=== PATIENT | male | born 1955 | race Caucasian/White ===

== ENCOUNTER 2020-11-04 12:40 | Outpatient (REF) | payer MEDICARE, SELFPAY ==
--- NOTE | ~2020-11-04 | US_ITS ---
EXAMINATION: US EXTRACRANIAL CAROTID DUPLEX, BILATERAL CLINICAL INFORMATION: Carotid artery stenosis follow-up. History of right endarterectomy. COMPARISON: 10/15/2019. TECHNIQUE: Real-time ultrasound and Doppler techniques (integrating B-mode 2-D vascular images, Doppler spectral analysis and color-flow Doppler imaging) were utilized to interrogate the extracranial carotid arteries, the vertebral arteries and proximal subclavian arteries bilaterally. The degree of stenosis is determined by criteria similar to NASCET. FINDINGS: Right Side: 1. There is mild atherosclerotic plaque seen in the bifurcation/proximal ICA region. 2. The common carotid artery PSV proximally is 108 cm/s and distally 99 cm/s. 3. The proximal internal carotid artery velocities are 108 cm/s systolic and 19 cm/s diastolic. 4. The proximal external carotid artery PSV is 272 cm/s. 5. The vertebral artery shows antegrade flow. 6. The subclavian artery waveforms are normal. Left Side: 1. There is moderate atherosclerotic plaque seen in the bifurcation/proximal ICA region. 2. The common carotid artery PSV proximally is 146 cm/s and distally 100 cm/s. 3. The proximal internal carotid artery velocities are 130 cm/s systolic and 29 cm/s diastolic. 4. The proximal external carotid artery PSV is 213 cm/s. 5. The vertebral artery shows antegrade flow. 6. The subclavian artery waveforms are normal. US/US carotid duplex BI IMPRESSION: 1. RIGHT: Minimal, non-hemodynamically significant stenosis of the proximal right internal carotid artery corresponding to a 0-49% stenosis by velocity criteria. 2. LEFT: Moderate, hemodynamically significant stenosis of the proximal left internal carotid artery corresponding to a 50-79% stenosis by velocity criteria. 3. There is no change in the category severity of disease when compared to the previous study dated 10/15/2019.
== END 2020-11-04 12:41 | disposition home or self-care (01) ==
LOC: HO.US 12:40
PROVIDERS: Visit Provider Surgery Vascular Surgery
DX: I65.21 Occlusion and stenosis of right carotid artery (principal)
CPT/HCPCS: 93880

== ENCOUNTER → 2020-11-18 09:50 | Outpatient (BNVA) | payer MEDICARE, SELFPAY | PROVIDERS: PCP Family Medicine; Visit Provider Surgery Vascular Surgery | DX: I83.11 Varicose veins of right lower extremity with inflammation (principal); I65.23 Occlusion and stenosis of bilateral carotid arteries | CPT/HCPCS: 99212 ==

== ENCOUNTER 2020-12-01 12:42 | Outpatient (REF) | payer MEDICARE, SELFPAY ==
--- NOTE | ~2020-12-01 | US_ITS ---
EXAMINATION: RIGHT and LEFT LOWER EXTREMITY VENOUS ULTRASOUND (Reflux Exam) CLINICAL INDICATION: leg pain and varicose veins. COMPARISON: None. TECHNIQUE: Color flow triplex imaging and compression Doppler was performed to evaluate both the deep and the superficial systems bilaterally. To evaluate the superficial system, the examination was performed in the upright position. Color-flow Doppler ultrasound and compression ultrasound were utilized. In addition, maneuvers were utilized to demonstrate reflux. FINDINGS: 1. DEEP VENOUS ULTRASOUND OF THE RIGHT LOWER EXTREMITY: Respiratory variation, normal compression and augmented flow are noted in the right common femoral vein as well as the right popliteal vein and there is no evidence of deep venous thrombosis at these locations. There is no evidence of reflux in the deep system in either the common femoral vein or the popliteal vein. There is no evidence of a Quiroz's cyst. 2. SUPERFICIAL ULTRASOUND WITH DOPPLER OF RIGHT LOWER EXTREMITY: The right great saphenous vein at the saphenofemoral junction measures 6 mm, at the mid thigh 3 mm, tefcn-msd-uimm 3 mm, jajbz-xxg-qagr 2 mm, at mid calf 2 mm and at the ankle measures 2 mm. There is right greater saphenous vein reflux measuring 2.2 seconds in the mid thigh, 2.5 seconds above the knee and 1.4 seconds at the knee. The right small saphenous vein measures 2 mm and shows no reflux. There is a 2 mm ordnance engineer in the proximal calf that demonstrates 2.4 seconds reflux. There is a varicosity in the proximal thigh that measures 3 mm and demonstrates 2.1 seconds reflux. 3. DEEP VENOUS ULTRASOUND OF THE LEFT LOWER EXTREMITY: Respiratory variation, normal compression and augmented flow are noted in the left common femoral vein as well as the left popliteal vein and there is no evidence of deep venous thrombosis at these locations. There is left popliteal deep venous reflux measuring 1.8 seconds. There is no evidence of reflux in the deep system in either the common femoral vein or the mid femoral vein. . There is no evidence of a Quiroz's cyst. 4. SUPERFICIAL ULTRASOUND WITH DOPPLER OF LEFT LOWER EXTREMITY: Left great saphenous vein at the saphenofemoral junction measures 6 mm, at the mid thigh to mm, mdotm-rlp-ryzd 2 mm, wnydm-hgm-sgez 2 mm, at mid calf 1 mm and at the ankle measures 2 mm. There is left greater saphenous vein reflux measuring 1.1 seconds in the mid thigh, 1.7 seconds above knee and 2 seconds at the knee. The left small saphenous vein measures 2 mm and shows no reflux. There is a ordnance engineer in the mid calf that measures 4 mm and does not demonstrate reflux. US/US venous duplex LE BI IMPRESSION: 1. No evidence of DVT. 1.8 second left popliteal vein reflux. 2. Bilateral greater saphenous vein reflux.
== END 2020-12-01 12:43 | disposition home or self-care (01) ==
LOC: HO.US 12:42
PROVIDERS: Visit Provider Surgery Vascular Surgery
DX: I83.893 Varicose veins of bilateral lower extremities with other complications (principal); I83.11 Varicose veins of right lower extremity with inflammation
CPT/HCPCS: 93970

== ENCOUNTER → 2020-12-09 13:05 | Outpatient (BNVA) | payer MEDICARE, SELFPAY | PROVIDERS: PCP Family Medicine; Visit Provider Surgery Vascular Surgery | DX: I83.11 Varicose veins of right lower extremity with inflammation (principal); J30.2 Other seasonal allergic rhinitis; Z87.891 Personal history of nicotine dependence; Z98.890 Other specified postprocedural states | CPT/HCPCS: 99212 ==

== ENCOUNTER → 2021-01-21 10:18 | Outpatient (BNVA) | payer MEDICARE, SELFPAY | PROVIDERS: PCP Family Medicine; Visit Provider Surgery Vascular Surgery | DX: I83.11 Varicose veins of right lower extremity with inflammation (principal) | CPT/HCPCS: 36475 ==

== ENCOUNTER 2021-01-24 13:41 | Outpatient (REF) | payer MEDICARE, SELFPAY ==
--- NOTE | ~2021-01-24 | US_ITS ---
EXAMINATION: US VENOUS ULTRASOUND WITH DOPPLER LOWER EXTREMITY, RIGHT CLINICAL INFORMATION: This is a 66-year-old male who status post right radiofrequency ablation. COMPARISON: Comparison is made to the previous study dated 12/01/2020 when the great saphenous vein was patent. TECHNIQUE: Ultrasound of the deep veins is performed from the hip to the calf with compression sonography and color and pulse Doppler assessment. Spectral analysis with color-flow imaging is performed. FINDINGS: There is normal venous compression and respiratory variation and augmented flow. The visualized common femoral vein, superficial femoral vein, profunda femoral vein, popliteal vein, and the trifurcation region shows no evidence of deep venous thrombosis. There is no significant popliteal fossa cyst. There is thrombus in the great saphenous vein 2.9 cm from the saphenofemoral junction. The great saphenous vein measures 0.5 cm. The great saphenous vein appears occluded. If the patient's symptoms persist, followup ultrasound in 5 days 7 days might be of value to exclude proximal propagation from a non-visualized calf vein. US/US venous duplex LE RT IMPRESSION: No DVT demonstrated in the right lower extremity.
== END 2021-01-24 13:42 | disposition home or self-care (01) ==
LOC: HO.HMGCX 13:41
PROVIDERS: PCP Family Medicine; Visit Provider Surgery Vascular Surgery
DX: M79.604 Pain in right leg (principal)
CPT/HCPCS: 93971

== ENCOUNTER → 2021-02-03 11:43 | Outpatient (BNVA) | payer MEDICARE, SELFPAY | PROVIDERS: PCP Family Medicine; Visit Provider Surgery Vascular Surgery | DX: I83.11 Varicose veins of right lower extremity with inflammation (principal); I65.23 Occlusion and stenosis of bilateral carotid arteries | CPT/HCPCS: 99212 ==

== ENCOUNTER 2022-02-21 12:35 | Outpatient (REF) | payer MEDICARE, SELFPAY ==
--- NOTE | ~2022-02-21 | US_ITS ---
EXAMINATION: US EXTRACRANIAL CAROTID DUPLEX, BILATERAL CLINICAL INFORMATION: Carotid stenosis. History of prior right carotid endarterectomy COMPARISON: 11/04/2020 TECHNIQUE: Real-time ultrasound and Doppler techniques (integrating B-mode 2-D vascular images, Doppler spectral analysis and color-flow Doppler imaging) were utilized to interrogate the extracranial carotid arteries, the vertebral arteries and proximal subclavian arteries bilaterally. The degree of stenosis is determined by criteria similar to NASCET. FINDINGS: Right Side: 1. Postsurgical changes in the right carotid bulb and internal carotid artery consistent with prior endarterectomy. There is minimal atherosclerotic plaque seen in the bifurcation/proximal ICA region. 2. The common carotid artery PSV proximally is 124 cm/s and distally 123 cm/s. 3. The proximal internal carotid artery velocities are 83 cm/s systolic and 18 cm/s diastolic. 4. The proximal external carotid artery PSV is 252 cm/s. 5. The vertebral artery shows antegrade flow. 6. The subclavian artery waveforms are normal. Left Side: 1. There is mild to moderate atherosclerotic plaque seen in the bifurcation/proximal ICA region. 2. The common carotid artery PSV proximally is 169 cm/s and distally 106 cm/s. 3. The proximal internal carotid artery velocities are 142 cm/s systolic and 28 cm/s diastolic. 4. The proximal external carotid artery PSV is 259 cm/s. 5. The vertebral artery shows antegrade flow. 6. The subclavian artery waveforms are normal. US/US carotid duplex BI IMPRESSION: 1. RIGHT: Status post prior carotid endarterectomy with minimal plaque formation. Minimal, non-hemodynamically significant stenosis of the proximal right internal carotid artery corresponding to a 0-49% stenosis by velocity criteria. 2. LEFT: Moderate, hemodynamically significant stenosis of the proximal left internal carotid artery corresponding to a 50-79% stenosis by velocity criteria. 3. There is no change in the category severity of disease when compared to the previous study dated 11/04/2020.
== END 2022-02-21 12:36 | disposition home or self-care (01) ==
LOC: HO.US 12:35
PROVIDERS: PCP Family Medicine; Visit Provider Surgery Vascular Surgery
DX: I65.23 Occlusion and stenosis of bilateral carotid arteries (principal)
CPT/HCPCS: 93880

== ENCOUNTER → 2022-02-28 13:02 | Outpatient (BNVA) | payer MEDICARE, SELFPAY | PROVIDERS: PCP Family Medicine; Visit Provider Surgery Vascular Surgery | DX: Z13.6 Encounter for screening for cardiovascular disorders (principal); I65.23 Occlusion and stenosis of bilateral carotid arteries; I83.11 Varicose veins of right lower extremity with inflammation; K42.9 Umbilical hernia without obstruction or gangrene | CPT/HCPCS: 99212 ==

== ENCOUNTER → 2022-03-22 12:31 | Outpatient (BNVA) | payer MEDICARE, SELFPAY | PROVIDERS: PCP Family Medicine; Visit Provider Surgery | DX: K42.9 Umbilical hernia without obstruction or gangrene (principal); I65.23 Occlusion and stenosis of bilateral carotid arteries; M62.08 Separation of muscle (nontraumatic), other site | CPT/HCPCS: 99202 ==

== ENCOUNTER → 2022-05-01 10:51 | Outpatient (BNVA) | payer MEDICARE, SELFPAY | PROVIDERS: PCP Family Medicine; Referring Provider Family Medicine; Visit Provider Internal Medicine Cardiovascular Disease | DX: I25.10 Atherosclerotic heart disease of native coronary artery without angina pectoris (principal); R07.9 Chest pain, unspecified | CPT/HCPCS: 93005; 99202 ==

== ENCOUNTER → 2022-05-17 08:43 | Outpatient (REF) | payer MEDICARE, SELFPAY ==
--- NOTE | 2022-05-17 08:46 | CA_ITS ---
Acquisition Time: 2022-05-17 09:24:34 Total Exercise Time: 00:02:00 Test Indications: CP Medications: SEE H Protocol: LEXISCAN Max HR: 101 BPM 66% of Pred: 151 BPM Max BP: 122/054 mmHG Max Work Load: 1.0 METS Pharmacological stress test with Lexiscan injection, while sitting and kicking his legs, with mild sob, no chest discomfort, with isolated PVC, with normotensive response to injection, with nondiagnostic EKG for ischemia. In recovery he was treated with Aminophylline 75mg IVP to reverse Lexiscan with improvement in breathing. Nuclear images pending. Test reviewed with Dr Gerardo. Referred By: Dejan Gerardo Overread By: HAMLET TRAYLOR
== END ==
LOC: HO.CARD 08:43
PROVIDERS: Visit Provider Internal Medicine Cardiovascular Disease
DX: R07.9 Chest pain, unspecified (principal)
CPT/HCPCS: 78452; 93017; A9500; J0280; J2785

== ENCOUNTER 2022-06-12 12:37 | Outpatient (REF) | payer MEDICARE, SELFPAY ==
[2022-06-12 12:46] LABS: MANUAL DIFF FLAG NO
[2022-06-12 14:04] LABS: Basophils Absolute Auto 0.1 X10*3/uL (0.0-0.2); Eosinophils Absolute Auto 0.3 X10*3/uL (0.0-0.4); Eosinophils Percent Auto 2.9 % (0-4); Hematocrit 43.8 % (42.0-52.0); Hemoglobin 14.3 g/dl (14.0-18.0); Imm Gran Abs Auto 0.06 X10*3/uL (0.00-0.03); Imm Gran Pct Auto 0.6 % (0.0-0.4); Lymphocytes Absolute Auto 1.7 X10*3/uL (1.2-4.9); Mean Corpuscular HGB Conc 32.6 g/dl (31.0-36.0); Mean Corpuscular Hemoglobin 29.6 pg (27.0-33.0); Mean Corpuscular Volume 90.7 fL (80.0-98.0); Mean Platelet Volume 9.7 fL (9.4-12.4); Monocytes Absolute Auto 1.1 X10*3/uL (0.1-1.2); Monocytes Percent Auto 10.6 % (2-11); Neutrophils Absolute Auto 6.8 x10*3/uL (2.0-8.3); Neutrophils Percent Auto 67.9 % (45-73); Platelet Count 407 X10*3/uL (160-400); Red Blood Count 4.83 X10*6/uL (4.60-5.80); Red Cell Distribution Width 12.7 % (11.0-16.0)
[2022-06-12 14:17] LABS: INTERNATIONAL NORM RATIO 0.9 (0.9-1.1); Prothrombin Time 10.5 SEC (10.0-13.1)
[2022-06-12 14:49] LABS: Anion Gap 18 (12-20); Blood Urea Nitrogen 17 mg/dL (9-16); Calcium 9.9 mg/dL (8.4-10.2); Carbon Dioxide 28 mmol/L (22-29); Chloride 95 mmol/L (96-108); Estimated Glomerular Filt Rate > 60; Glucose Random 189 mg/dL (60-115); Potassium 4.6 mmol/L (3.3-5.1); Sodium 136 mmol/L (135-145)
== END 2022-06-12 12:38 | disposition home or self-care (01) ==
LOC: HO.LAB 12:37
PROVIDERS: PCP Family Medicine; Visit Provider Internal Medicine Cardiovascular Disease
DX: R07.9 Chest pain, unspecified (principal); I25.10 Atherosclerotic heart disease of native coronary artery without angina pectoris
CPT/HCPCS: 36415; 80048; 85025; 85610

== ENCOUNTER → 2022-07-03 12:37 | Outpatient (BNVA) | payer MEDICARE, SELFPAY | PROVIDERS: PCP Family Medicine; Referring Provider Family Medicine; Visit Provider Internal Medicine Cardiovascular Disease | DX: I25.118 Atherosclerotic heart disease of native coronary artery with other forms of angina pectoris (principal) | CPT/HCPCS: 99212 ==

== ENCOUNTER 2022-12-07 09:34 | Outpatient (AMB) | payer MEDICARE, SELFPAY ==
--- NOTE | 2022-12-07 09:39 | MHC.OFFVIS ---
Intake Intake Visit Reasons: follow up add-on s/p Art US @[facility] Intake Note: Patient is here for a follow up add on s/p arterial US @[facility], patient has hx of Right CEA 02/04/18 + VV. c/o LE pain. left leg cramping and unable to walk far, symptoms started a few year ago. Allergies aspirin [From Percodan] Adverse Reaction (Intermediate, Verified 12/07/22 09:47) hyperglycemia oxycodone [From Percodan] Adverse Reaction (Intermediate, Verified 12/07/22 09:47) hyperglycemia Seasonal Allergy (Unknown, Uncoded 07/03/22 12:56) Sneezing HPI follow up add-on s/p Art US @[facility] HPI Details 67-year-old gentleman well known to me for prior history of carotid endarterectomy back in 2018 had seen his primary care and was complaining left leg claudication. He reports that he has difficulty ambulating more than a block. It has been progressing over the last several months. He now presents for vascular follow-up with noninvasive testing performed at an outside institution. [facility] Medical History Carotid stenosis Diabetes Surgical History History of cardiac cath History of CEA (carotid endarterectomy) Family History Father No problems noted. Mother No problems noted. Daughter No problems noted. Son No problems noted. Social History Alcohol intake: former Year quit: 1998 Patient Tobacco Use Status: Former Tobacco user Quit Date: 1998 Tobacco use type: Cigarette Years Smoked: 35 +/- Review of Systems Const All systems reviewed & are unremarkable except as noted in HPI and below Reports no additional complaints ENT Reports Normal hearing present Card Denies chest pain, Denies chest pain at rest, Denies chest pain with activity and Denies pedal edema Resp Denies cough GI Denies abdominal pain Musc Denies abnormal gait, Denies muscle cramps and Denies radiating pain into limb Skin/Breast Denies skin ulcer and Denies wounds Neuro Reports Normal hearing present and Denies abnormal gait Psych Reports no additional complaints Physical Exam Const General: cooperative, healthy appearing and comfortable Orientation/consciousness: oriented to person, oriented to place and oriented to time HEENT Head: Yes normal to inspection Neck Neck: Yes normal visual inspection Carotids: no bruits Chest Chest palpation & inspection: normal inspection of the chest Resp Effort & Inspection: normal respiratory effort and able to speak in complete sentences Auscultation: clear to auscultation bilaterally, no crackles, no rales, no rhonchi and no wheezes Cardio Other: Bilateral DP signals Rate: regular rate Rhythm: regular rhythm Heart sounds: S1 normal heart sound present and S2 normal heart sound present Bruits: no carotid bruits GI Inspection: Yes normal to inspection Skin Wounds: no wounds Hair: normal Neuro General: oriented to person, oriented to place and oriented to time Cranial nerves: Yes CN's II-XII intact bilaterally and Yes Normal hearing present Cognition (Neuro): normal cognition Motor exam (neuro): 5/5 motor strength present throughout Extrem Other: venous exam: No significant superficial varicosities or spider telangiectasias, minimal edema General: No clubbing, No cyanosis and No edema Psych Appearance: grossly normal Mental Status: mental status grossly normal Speech and movement: Normal speech and movement present Results Reviewed Results Reviewed: Noninvasive testing dated 06/19/2022 demonstrates AMELIA on the right of 9.9 and on the left of 0.48. They report a decrease in waveforms but I am not able to visualize the waveforms. They are suggesting and arterial ultrasound which was not done. Written report was reviewed only. Assessment & Plan Assessment & Plan (1) PAD (peripheral artery disease): Code(s): I73.9 - Peripheral vascular disease, unspecified Plan: Patient notes leg pain when walking distances. I have discussed the pathophysiology of peripheral vascular disease with the patient. I have also discussed risk factor modification. I have reviewed the patient's arterial testing which reveals left AMELIA of 0.48. the patient would benefit from a left leg endovascular peripheral angiogram with possible angioplasty, stent, and/or atherectomy. This has been discussed in detail with the patient along with risks, benefits, and complications. This includes but is not limited to bleeding, infection, heart attack, need for emergent surgical repair, limb ischemia, blood vessel damage, bleeding, puncture, kidney injury, bruising, allergic reaction, and skin reaction. The patient demonstrates a clear understanding. We will schedule for the next appropriate time. Thank you for allowing us to assist in this patient's care. (2) Varicose veins of right lower extremity with inflammation: Comment: 01/21/2021 - right great saphenous vein Radiofrequency ablation Code(s): I83.11 - Varicose veins of right lower extremity with inflammation Plan: At the current time his venous disease appears to be stable. Will address arterial status 1st. (3) Bilateral carotid artery stenosis: Comment: 02/04/2018- right carotid endarterectomy Code(s): I65.23 - Occlusion and stenosis of bilateral carotid arteries Plan: Carotid status is stable. He is scheduled for annual surveillance of his carotids in January. Thank you for allowing us to assist in his care. Coding Level of Care Code Est Pt Level 4 (42078) Diagnoses PAD (peripheral artery disease) I73.9 Varicose veins of right lower extremity with inflammation I83.11 Bilateral carotid artery stenosis I65.23
== END 2022-12-07 10:01 | disposition home or self-care (01) ==
LOC: HO.HVS 09:34
PROVIDERS: PCP Family Medicine; Visit Provider Surgery Vascular Surgery
DX: I73.9 Peripheral vascular disease, unspecified (principal); I83.11 Varicose veins of right lower extremity with inflammation; I65.23 Occlusion and stenosis of bilateral carotid arteries
CPT/HCPCS: 99214

== ENCOUNTER → 2022-12-07 09:34 | Outpatient (BNVA) | payer MEDICARE, SELFPAY | PROVIDERS: PCP Family Medicine; Visit Provider Surgery Vascular Surgery | DX: I73.9 Peripheral vascular disease, unspecified (principal); I65.23 Occlusion and stenosis of bilateral carotid arteries; I83.11 Varicose veins of right lower extremity with inflammation | CPT/HCPCS: 99212 ==

== ENCOUNTER 2022-12-27 06:04 | Day surgery (SDC) | payer MEDICARE, SELFPAY ==
[2022-12-27] VITALS (7 sets, daily range): BP systolic 105–136; BP diastolic 8–65; PULSE 66–86; RESP 13–20; TEMP 37.2; O2SAT 94–96; BMI 28.1
[2022-12-27 06:40] LABS: Basophils Absolute Auto 0.1 X10*3/uL (0.0-0.2); Basophils Percent Auto 0.9 % (0-2); Eosinophils Absolute Auto 0.4 X10*3/uL (0.0-0.4); Eosinophils Percent Auto 2.5 % (0-4); Hemoglobin 15.4 g/dl (14.0-18.0); Imm Gran Pct Auto 0.6 % (0.0-0.4); Lymphocytes Absolute Auto 2.7 X10*3/uL (1.2-4.9); Lymphocytes Percent Auto 16.3 % (20-40); MANUAL DIFF FLAG SCAN; Mean Corpuscular HGB Conc 33.5 g/dl (31.0-36.0); Mean Corpuscular Hemoglobin 30.5 pg (27.0-33.0); Mean Corpuscular Volume 91.1 fL (80.0-98.0); Mean Platelet Volume 9.4 fL (9.4-12.4); Monocytes Absolute Auto 1.7 X10*3/uL (0.1-1.2); Monocytes Percent Auto 10.2 % (2-11); Neutrophils Absolute Auto 11.3 x10*3/uL (2.0-8.3); Neutrophils Percent Auto 69.5 % (45-73); Platelet Count 436 X10*3/uL (160-400); Red Blood Count 5.05 X10*6/uL (4.60-5.80); Red Cell Distribution Width 13.2 % (11.0-16.0); SCAN SMEAR FLAG 1; White Blood Count 16.3 X10*3/uL (4.8-10.8)
[2022-12-27 06:45] LABS: Blood Urea Nitrogen 24 mg/dL (9-16); Creatinine Clr Calc Pharmacy 63.7; Estimated Glomerular Filt Rate > 60
[2022-12-27 07:07] LABS: Glucose, Whole Blood 138 mg/dL (60-115)
[2022-12-27 08:24] LABS: SLIDE REVIEW VERIFIED
--- NOTE | 2022-12-27 09:03 | W.PM.OPN ---
Operative Note Operative Note Date of Service: 12/27/22 Narrative: Angiogram report from [facility] Preoperative diagnosis: Atherosclerosis of Left lower extremity with activity limiting claudication Postoperative diagnosis: Same Procedure: 1. Ultrasound-guided right common femoral access 2. Aortogram with left lower extremity runoff 3. left common iliac and external iliac plasty and stent Surgeon:Ubaldo Lassiter M.D., FACS, RPVI Charging Plug Placer:None Anesthesia: Local with moderate conscious sedation. Total intraservice moderate sedation time was 45 minutes. I monitored the patient's level of consciousness and physiologic status continuously throughout the procedure. Specimens:none Drains:none Estimated blood loss: Less than 10 ml Implant: [place] VBX 7 x 19; Medtronic visi Pro 7 x 17 Indications: very pleasant 67-year-old gentleman presents for endovascular intervention. He had undergone noninvasive testing which demonstrated an AMELIA of 0.49. He did demonstrate activity limiting claudication. He now presents for intervention. The patient has signed the informed consent after reviewing risks, complications, benefits, and alternatives previously discussed with the patient. The patient was given the opportunity to ask any additional questions or voice any concerns. All questions were answered to the patient's satisfaction. Procedure in detail: Patient was brought to the angiography suite prior to which a time-out was called for patient identification and site verification. Bilateral groins were prepped and draped in the standard surgical fashion. Under ultrasound guidance Right common femoral was punctured with micro puncture needle and wire. Subsequently a precision 4 Panamanian sheath was then placed. Bentson wire was advanced to the level of the aorta. 4 [place] Flush catheter was brought up and parked at the level of the renal arteries. Aortogram was then undertaken. Catheter was brought down to the level of the iliac bifurcation. Iliacs were subsequently imaged. Catheter was then brought in up and over to the left side SFA. Runoff study was then undertaken. it was recognized that he did have significant iliac disease. We were able to traverse this lesion with a Glidewire Advantage. At this time we administered 5000 units of systemic heparin. After 5 minutes of circulation time up and over 6 [place]amanian sheath was then placed. We did multiple orthogonal views of the iliacs. We subsequently plasty this area with a 6 x 30 balloon. Multiple insufflations of this was required. We recognize there was a high-grade very calcified stenosis in the common iliac and then there was a stenosis at the junction of the takeoff of the hypogastric on the external iliac. We 1st placed a 7 x 17 visi Pro stent on the junction of the common iliac to external iliac. We then exchanged out for a 7 [place] sheath. An through this we deployed in the common iliac a [place] VBX 7 x 19 balloon expandable covered stent. Once this was accomplished excellent result was achieved. Completion angiogram was undertaken. StarClose closure device was then deployed. Patient tolerated the procedure well returned to recovery with stable vitals. Interpretation of films: 1. Ultrasound demonstrates appropriate femoral puncture. Image of which was saved. 2. Aortogram demonstrates appropriate caliber aorta. Minimal disease. Appropriate take-off of the renals. 3. Iliac images demonstrate Right side no significant disease but there was a significant calcified area of the common femoral; Left side high-grade stenosis at the common iliac high-grade stenosis at the junction of the common iliac to external iliac 4. left Leg Common femoral artery: no significant disease Profundus Femoris: No significant disease Superficial femoral artery: no significant disease Popliteal artery (p1,p2,p3): no significant disease Anterior tibial artery: patent with runoff all the way to the ankle Peroneal artery: patent but diminutive Posterior tibial artery: patent with runoff all the way to the ankle Dorsalis pedis/plantar arch: incomplete Conclusion: 1. successful plasty and stent placement left common iliac and external iliac artery 2. Anticoagulation status: will require 6 months of aspirin and Plavix This note is constructed using voice recognition software. While every effort has been made to ensure accuracy, board operator errors may have been included. Thank you for allowing me to participate in the care of your patient. Yours sincerely, Ubaldo Lassiter MD, FACS, R.P.V.I.
[2022-12-27] MEDS: Clopidogrel Bisulfate 300 MG TABLET PO (09:30)
[2022-12-27 10:19] LABS: Glucose, Whole Blood 136 mg/dL (60-115)
== END 2022-12-27 11:36 | disposition home or self-care (01) ==
PROVIDERS: PCP Family Medicine; Visit Provider Surgery Vascular Surgery
DX: E11.51 Type 2 diabetes mellitus with diabetic peripheral angiopathy without gangrene (principal); I70.213 Atherosclerosis of native arteries of extremities with intermittent claudication, bilateral legs; R26.2 Difficulty in walking, not elsewhere classified; I65.23 Occlusion and stenosis of bilateral carotid arteries; I65.29 Occlusion and stenosis of unspecified carotid artery; I83.11 Varicose veins of right lower extremity with inflammation; Z79.82 Long term (current) use of aspirin; Z79.4 Long term (current) use of insulin; Z88.8 Allergy status to other drugs, medicaments and biological substances; Z98.890 Other specified postprocedural states; Z87.891 Personal history of nicotine dependence
CPT/HCPCS: 36415; 37221; 37223; 76937; 82565; 82947; 84520; 85025; 99152; 99153; C1725; C1760; C1769; C1874; C1876; C1887; C1894; J1643; J2250; J3010; Q9967

== ENCOUNTER → 2022-12-27 06:04 | Outpatient (BNV) | payer MEDICARE, SELFPAY | PROVIDERS: PCP Family Medicine; Visit Provider Surgery Vascular Surgery | DX: I70.212 Atherosclerosis of native arteries of extremities with intermittent claudication, left leg (principal) | CPT/HCPCS: 37221; 37223; 75630; 76937; 99152 ==

== ENCOUNTER 2023-01-08 12:37 | Outpatient (AMB) | payer MEDICARE, SELFPAY ==
--- NOTE | 2023-01-08 12:50 | A.OFFVIS_ITS ---
Intake Vital Signs 01/08/23 12:51 Height 5 ft 4 in Weight 157 lb 13.616 oz BMI 27.1 BP 118/56 L Blood Pressure Location Lt brachial Position Sitting Pulse 79 Pulse Source Monitor Intake Visit Reasons: 6 mth f/up Intake Note: 6 month follow up with EKG. 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 Accompanied by: Self / Same As Patient Allergies aspirin [From Percodan] Adverse Reaction (Intermediate, Verified 01/08/23 12:53) hyperglycemia oxycodone [From Percodan] Adverse Reaction (Intermediate, Verified 01/08/23 12:53) hyperglycemia Seasonal Allergy (Unknown, Uncoded 01/08/23 12:53) Sneezing Medication List - Last Reconciled 01/08/23 by Dejan Gerardo MD albuterol sulfate 90 mcg/actuation 2 puffs inhalation Q4H PRN amlodipine 10 mg PO DAILY aspirin (Adult Aspirin Regimen) 81 mg PO DAILY atorvastatin 40 mg PO BEDTIME blood sugar diagnostic As directed chlorthalidone 50 mg PO DAILY clopidogrel (Plavix) 75 mg PO DAILY cyanocobalamin (vitamin B-12) 1,000 mcg PO DAILY dorzolamide-timolol 22.3-6.8 mg/mL 1 drp ophthalmic (eye) BID iazzjtfqfzi-oifqpzhgm-jscaaupm 200-62.5-25 mcg (Trelegy Ellipta) 1 inh inhalation DAILY insulin admin supplies (InPen (for Humalog) subcutaneous) As directed insulin glargine 16 units subcut DAILY insulin lispro 8 units subcut TID latanoprost 0.005% drps ophthalmic (eye) metformin 850 mg PO TID moexipril 15 mg PO BID pen needle, diabetic As directed sildenafil 100 mg PO DAILY PRN HPI HPI Comments History of Present Illness Details 68-year-old gentleman is presenting for follow-up. He previously had cardiac catheterization which showed 40% lad stenosis. He came for follow-up after few years and was complaining of chest discomfort. He was referred for stress testing which showed fixed inferior perfusion defect with differential of diaphragmatic attenuation versus scar. Given ongoing symptoms we decided to bring him back for diagnostic angiography. He underwent diagnostic angiogram from right femoral approach because we could not pass a wire through the right radial artery because it was already occluded. His angiogram did not show any significant change in anatomy to explain symptoms. Particular then fixed inferior defect was thought to be an artifact due to diaphragm. He is returning for follow-up today and doing well. Blood pressure control is reasonable. Denying any chest discomfort or shortness of breath. 01/08/23: He is here for follow-up. Blood pressure control is good. He underwent lower extremity PCI by Dr. Lassiter. He is on aspirin Plavix. Denying any chest discomfort or significant shortness of breath. He said he was short of breath before he started exercise recently but with progressive activities dyspnea is improved significantly. I think this was due to deconditioning. [facility] Medical History Carotid stenosis Diabetes Surgical History History of cardiac cath History of CEA (carotid endarterectomy) Family History Father No problems noted. Mother No problems noted. Daughter No problems noted. Son No problems noted. Social History Alcohol intake: former Year quit: 1998 Patient Tobacco Use Status: Former Tobacco user Quit Date: 1998 Tobacco use type: Cigarette Years Smoked: 35 +/- Review of Systems Const Denies weakness ENT Denies dizziness Card Denies chest pain, Denies chest pain with activity, Denies syncope, Denies rapid heart rate, Denies pedal edema, Denies edema, Denies leg edema, Denies lightheadedness, Denies palpitations, Denies dyspnea, Denies dyspnea on exertion and Denies orthopnea Resp Denies cough, Denies dyspnea and Denies dyspnea on exertion GI Denies hematochezia and Denies change in stool character Musc Denies abnormal gait, Denies muscle cramps, Denies muscle weakness, Denies numbness, Denies radiating pain into limb and Denies tingling Neuro Denies abnormal gait, Denies dizziness, Denies syncope, Denies numbness, Denies tingling and Denies weakness Endo Denies palpitations Physical Exam Vital Signs: Last Vital Signs Pulse 79 01/08/23 12:51 BP 118/56 L 01/08/23 12:51 BMI result Body Mass Index 27.1 GENERAL APPEARANCE: in no acute distress, pleasant. NECK: no carotid bruit, no jugular venous distention. Right carotid endarterectomy scar. SKIN: no suspicious lesions, warm and dry. HEART: no murmurs, regular rate and rhythm. LUNGS: clear to auscultation bilaterally. ABDOMEN: soft, nontender. EXTREMITIES: no edema. PERIPHERAL PULSES: equal. NEUROLOGIC: No gross deficits, AAO X 3 Office Procedures EKG Details: Sinus rhythm 79 beats per minute, normal axis, QTC 421 milliseconds [id number], Complete Assessment & Plan Assessment & Plan (1) PAD (peripheral artery disease): Code(s): I73.9 - Peripheral vascular disease, unspecified (2) Coronary artery disease: Code(s): I25.10 - Atherosclerotic heart disease of [place] coronary artery without angina pectoris Plan 68-year-old gentleman who is here for follow-up. He has history of carotid disease and had endarterectomy in the past. He also had recent lower extremity intervention and is on aspirin and Plavix. I have recommended to him to have fasting lipid panel. His target LDL is less than 70. Blood pressure control is good. He will see us back in few months. Thank you for allowing me to participate in the care of your patient. Please feel free to contact me if you have any questions. Orders: Orders Lipid Panel Today I73.9 - Peripheral vascular disease, unspecified Coding Level of Care Code Est Pt Level 4 (05683) Diagnoses PAD (peripheral artery disease) I73.9 Coronary artery disease I25.10 CPT Codes EKG - CPT: 62259-[id number], Complete ([id number])
[2023-01-08 12:51] VITALS: BP 118/56; PULSE 79; BMI 27.1
== END 2023-01-08 13:10 | disposition home or self-care (01) ==
PROVIDERS: PCP Family Medicine; Referring Provider Family Medicine; Visit Provider Internal Medicine Cardiovascular Disease
DX: I73.9 Peripheral vascular disease, unspecified (principal); I25.10 Atherosclerotic heart disease of native coronary artery without angina pectoris
CPT/HCPCS: 93010; 99214

== ENCOUNTER → 2023-01-08 12:37 | Outpatient (BNVA) | payer MEDICARE, SELFPAY | PROVIDERS: PCP Family Medicine; Referring Provider Family Medicine; Visit Provider Internal Medicine Cardiovascular Disease | DX: I73.9 Peripheral vascular disease, unspecified (principal); I25.10 Atherosclerotic heart disease of native coronary artery without angina pectoris; Z98.890 Other specified postprocedural states; Z95.5 Presence of coronary angioplasty implant and graft | CPT/HCPCS: 93005; 99212 ==

== ENCOUNTER 2023-01-11 08:46 | Outpatient (REF) | payer MEDICARE, SELFPAY ==
[2023-01-11 10:50] LABS: Cholesterol 132 mg/dL; HDL Cholesterol 54 mg/dL; LDL Cholesterol Calculated 63 mg/dl; Triglycerides 79 mg/dL
== END 2023-01-11 08:47 | disposition home or self-care (01) ==
LOC: HO.LAB 08:46
PROVIDERS: PCP Family Medicine; Visit Provider Internal Medicine Cardiovascular Disease
DX: I73.9 Peripheral vascular disease, unspecified (principal); E11.9 Type 2 diabetes mellitus without complications
CPT/HCPCS: 36415; 80061; 99212

== ENCOUNTER 2023-01-11 09:54 | Outpatient (AMB) | payer MEDICARE, SELFPAY ==
[2023-01-11 09:59] VITALS: BMI 26.9
--- NOTE | 2023-01-11 09:59 | A.OFFVIS_ITS ---
Intake Vital Signs 01/11/23 09:59 Height 5 ft 4 in Weight 157 lb BMI 26.9 Intake Visit Reasons: 2 week left angio 12/27/22 Intake Note: follow up Left LE angio 12/27/22, pt states he is feeling much better, is able to walk without having to stop and sit down. He states in the distance he can walk now he used to have to stop 4 times to sit. Accompanied by: Self / Same As Patient Allergies aspirin [From Percodan] Adverse Reaction (Intermediate, Verified 01/11/23 10:04) hyperglycemia oxycodone [From Percodan] Adverse Reaction (Intermediate, Verified 01/11/23 10:04) hyperglycemia Seasonal Allergy (Unknown, Uncoded 01/11/23 10:04) Sneezing HPI 2 week left angio 12/27/22 HPI Details Very pleasant 68-year-old gentleman status post left lower extremity endovascular intervention. He reports a significant improvement in his ambulation. He is able to walk distances with no significant difficulty. He now presents for routine postprocedure follow-up. [facility] Medical History (Updated 01/11/23 @ 10:51 by Ubaldo Lassiter MD) Carotid stenosis Diabetes Surgical History (Updated 01/11/23 @ 10:06 by TRESA Rahman) History of cardiac cath History of CEA (carotid endarterectomy) S/P angiogram of extremity (12/27/22) Family History Father No problems noted. Mother No problems noted. Daughter No problems noted. Son No problems noted. Social History Alcohol intake: former Year quit: 1998 Patient Tobacco Use Status: Former Tobacco user Quit Date: 1998 Tobacco use type: Cigarette Years Smoked: 35 +/- Review of Systems Const All systems reviewed & are unremarkable except as noted in HPI and below Reports no additional complaints ENT Reports Normal hearing present Card Denies chest pain, Denies chest pain at rest, Denies chest pain with activity and Denies pedal edema Resp Denies cough GI Denies abdominal pain Musc Denies abnormal gait, Denies muscle cramps and Denies radiating pain into limb Skin/Breast Denies skin ulcer and Denies wounds Neuro Reports Normal hearing present and Denies abnormal gait Psych Reports no additional complaints Physical Exam Vital Signs: BMI result Body Mass Index 26.9 Const General: cooperative, healthy appearing and comfortable Orientation/consciousness: oriented to person, oriented to place and oriented to time HEENT Head: Yes normal to inspection Neck Neck: Yes normal visual inspection Carotids: no bruits Chest Chest palpation & inspection: normal inspection of the chest Resp Effort & Inspection: normal respiratory effort and able to speak in complete sentences Auscultation: clear to auscultation bilaterally, no crackles, no rales, no rhonchi and no wheezes Cardio Other: Bilateral DP signals Rate: regular rate Rhythm: regular rhythm Heart sounds: S1 normal heart sound present and S2 normal heart sound present Bruits: no carotid bruits GI Inspection: Yes normal to inspection Skin Wounds: no wounds Hair: normal Neuro General: oriented to person, oriented to place and oriented to time Cranial nerves: Yes CN's II-XII intact bilaterally and Yes Normal hearing present Cognition (Neuro): normal cognition Motor exam (neuro): 5/5 motor strength present throughout Extrem Other: venous exam: No significant superficial varicosities or spider telangiectasias, minimal edema General: No clubbing, No cyanosis and No edema Psych Appearance: grossly normal Mental Status: mental status grossly normal Speech and movement: Normal speech and movement present Assessment & Plan Assessment & Plan (1) PAD (peripheral artery disease): Comment: 12/27/2022 - left common iliac and external iliac stent Code(s): I73.9 - Peripheral vascular disease, unspecified Plan: In short patient is stable from a peripheral vascular standpoint. He will require routine surveillance follow-up. In addition he will be on aspirin and Plavix for 6 months duration. He will be scheduled for ultrasound in 3 months time. Thank you for allowing us to assist in his care. If there are any questions or concerns please do not hesitate to contact us. Orders: Orders US arterial duplex LE BI 3 Months I73.9 - Peripheral vascular disease, unspecified Coding Level of Care Code Est Pt Level 3 (47525) Diagnoses PAD (peripheral artery disease) I73.9
== END 2023-01-11 10:16 | disposition home or self-care (01) ==
PROVIDERS: PCP Family Medicine; Visit Provider Surgery Vascular Surgery
DX: I73.9 Peripheral vascular disease, unspecified (principal)
CPT/HCPCS: 99213

== ENCOUNTER 2023-02-14 09:46 | Outpatient (REF) | payer MEDICARE, SELFPAY ==
--- NOTE | ~2023-02-14 | US_ITS ---
EXAMINATION: US RETROPERITONEAL LIMITED (AORTA) CLINICAL INFORMATION: Encounter for screening for cardiovascular disorders. Smoker. COMPARISON: None available. TECHNIQUE: Cordero-scale, color Doppler and spectral Doppler evaluation of the abdominal aorta. FINDINGS: The measurements of the aorta in maximum AP and transverse dimensions respectively are as follows: Proximal: 2.0 x 2.3 cm. Mid: 1.4 x 2.1 cm. Distal: 1.9 x 2.5 cm. PSV: 117 cm/s. The measurements of the common iliac arteries in maximum AP and TRV dimensions are as follows: Right Common Iliac Artery: 0.9 cm. Left Common Iliac Artery: 0.9 cm. US/US aorta IMPRESSION: Negative for abdominal aortic aneurysm.
--- NOTE | ~2023-02-14 | US_ITS ---
EXAMINATION: US EXTRACRANIAL CAROTID DUPLEX, BILATERAL CLINICAL INFORMATION: Carotid stenosis. History of right CEA 5 years ago. COMPARISON: Carotid ultrasound 02/21/2022. TECHNIQUE: Real-time ultrasound and Doppler techniques (integrating B-mode 2-D vascular images, Doppler spectral analysis and color-flow Doppler imaging) were utilized to interrogate the extracranial carotid arteries, the vertebral arteries and proximal subclavian arteries bilaterally. The degree of stenosis is determined by criteria similar to NASCET. FINDINGS: Right Side: 1. Right carotid endarterectomy with minimal plaque plaque seen in the bifurcation/proximal ICA region. 2. The common carotid artery PSV proximally is 134 cm/s and distally 106 cm/s. 3. The proximal internal carotid artery velocities are 119 cm/s systolic and 26 cm/s diastolic. 4. The proximal external carotid artery PSV is 225 cm/s. 5. The vertebral artery shows antegrade flow. 6. The subclavian artery waveforms are biphasic. Left Side: 1. There is mild atherosclerotic plaque seen in the bifurcation/proximal ICA region. 2. The common carotid artery PSV proximally is 146 cm/s and distally 118 cm/s. 3. The proximal internal carotid artery velocities are 129 cm/s systolic and 27 cm/s diastolic. 4. The proximal external carotid artery PSV is 234 cm/s. 5. The vertebral artery shows antegrade flow. 6. The subclavian artery waveforms are biphasic. US/US carotid duplex BI IMPRESSION: 1. RIGHT: Right carotid endarterectomy with minimal plaque. Minimal, non-hemodynamically significant stenosis of the proximal right internal carotid artery corresponding to a 0-49% stenosis by velocity criteria. 2. LEFT: Moderate, hemodynamically significant stenosis of the proximal left internal carotid artery corresponding to a 50-79% stenosis by velocity criteria. 3. There is no change in the category severity of disease when compared to the previous study dated 02/21/2022.
== END 2023-02-14 09:47 | disposition home or self-care (01) ==
LOC: HO.US 09:46
PROVIDERS: PCP Family Medicine; Visit Provider Surgery Vascular Surgery
DX: Z13.6 Encounter for screening for cardiovascular disorders (principal); I65.23 Occlusion and stenosis of bilateral carotid arteries
CPT/HCPCS: 76775; 93880

== ENCOUNTER 2023-04-16 12:37 | Outpatient (REF) | payer MEDICARE, SELFPAY ==
--- NOTE | ~2023-04-16 | US_ITS ---
EXAMINATION: Noninvasive assessment of the bilateral lower extremities with ARTERIAL DUPLEX and ANKLE BRACHIAL INDICES (ABIs). CLINICAL INFORMATION: Peripheral vascular disease TECHNIQUE: Duplex Doppler techniques with waveform analysis and measurement of velocities in the bilateral common femoral, profunda femoris, superficial femoral, popliteal and tibial arteries were performed. Additionally, ankle pulse volume recordings, ankle pressure measurements and ankle brachial indices were obtained of the lower extremity arterial system bilaterally. The study was performed only at rest. COMPARISON: 03/19/2018 and arteriogram from 12/27/2022 FINDINGS: DIRECT DUPLEX DOPPLER FINDINGS: RIGHT LEG: Common femoral artery: 79.3 cm/s, phasicity: Biphasic. Irregular calcified plaque Profunda femoris artery: 185 cm/s, phasicity: Biphasic Superficial femoral artery (proximal): 57.9 cm/s, phasicity: Biphasic Superficial femoral artery (mid): 71.2 cm/s, phasicity: Triphasic Superficial femoral artery (distal): 81.3 cm/s, phasicity: Triphasic Popliteal artery: 84.7 cm/s, phasicity: Monophasic Posterior tibial artery: 22.1 cm/s, phasicity: Monophasic Peroneal artery: 17.5 cm/s, phasicity: Monophasic Anterior tibial artery: 24.6 cm/s, phasicity: Monophasic Dorsalis pedis artery: 22.8 cm/s, phasicity:Monophasic LEFT LEG: Common femoral artery: 150 cm/s, phasicity: Biphasic Profunda femoris artery: 81.1 cm/s, phasicity: Triphasic Superficial femoral artery (proximal): 106 cm/s, phasicity: Biphasic Superficial femoral artery (mid): Stent is patent Proximal stent: 77.9 cm/s, phasicity biphasic Mid stent: 108 cm/s, phasicity triphasic Distal stent: 112 cm/s, phasicity biphasic Superficial femoral artery (distal): 113 cm/s, phasicity: Biphasic Popliteal artery: 119 cm/s, phasicity: Biphasic Posterior tibial artery: 53.0 cm/s, phasicity: Biphasic Peroneal artery: 57.7 cm/s, phasicity: Biphasic Anterior tibial artery: 58.9 cm/s, phasicity: Biphasic Dorsalis pedis artery: 50.8 cm/s, phasicity: Biphasic ANKLE-BRACHIAL INDEX: Right: 0.63? Left: 0.71 ANKLE PRESSURES: Right: PT 78, DP 65 Left: PT?87, DP?73 ANKLE PVR WAVEFORMS: Right: Abnormal Left: Abnormal US/US arterial duplex LE BI IMPRESSION: Right leg: Moderately decreased ankle brachial index and PVR waveform. Arterial duplex ultrasound demonstrates a patent flow within the arterial vessels with monophasic waveforms seen within the popliteal artery and below-knee runoff vessels. No definite stenosis isn't visualized however is suspected. Nonvisualized stenosis in the distal superficial femoral artery/proximal popliteal artery Left leg: Mildly decreased ankle brachial index and PVR waveform. Arterial duplex demonstrates patent flow within the arterial vessels. Stent in the mid superficial femoral artery is widely patent AMELIA Reference: - >1.4 = calcified vessels - 0.9 - 1.4 = normal - no significant arterial disease - 0.7 - 0.89 = mild peripheral arterial disease - 0.51 - 0.69 = moderate peripheral arterial disease - ? 0.50 = severe peripheral arterial disease - < .30 = critical arterial disease
== END 2023-04-16 12:38 | disposition home or self-care (01) ==
LOC: HO.US 12:37
PROVIDERS: PCP Family Medicine; Visit Provider Surgery Vascular Surgery
DX: I73.9 Peripheral vascular disease, unspecified (principal)
CPT/HCPCS: 93923; 93925

== ENCOUNTER 2023-05-10 14:52 | Outpatient (AMB) | payer MEDICARE, SELFPAY ==
--- NOTE | 2023-05-10 14:55 | MHC.OFFVIS ---
Intake Intake Visit Reasons: Follow Up 04/16 Arterial US Intake Note: Pt here for fallow up Arterial US on 04/16/23 Pt states the stents are working real good and hes able to walk more then he has prior to the procedure Allergies aspirin [From Percodan] Adverse Reaction (Intermediate, Verified 05/10/23 14:58) hyperglycemia oxycodone [From Percodan] Adverse Reaction (Intermediate, Verified 05/10/23 14:58) hyperglycemia Seasonal Allergy (Unknown, Uncoded 01/11/23 10:04) Sneezing HPI Follow Up 04/16 Arterial US HPI Details Very pleasant 68-year-old gentleman presents for follow-up status post left lower extremity endovascular intervention nearly 3-4 months ago. He reports a significant improvement in his ambulation. He can walk several blocks without stopping. He is now able to actively exercise. He actually has lost some weight through diet and exercise. He now presents for routine surveillance follow-up with noninvasive arterial testing. [facility] Medical History Carotid stenosis Diabetes Surgical History S/P angiogram of extremity (12/27/22) History of cardiac cath History of CEA (carotid endarterectomy) Family History Father No problems noted. Mother No problems noted. Daughter No problems noted. Son No problems noted. Social History Alcohol intake: former Year quit: 1998 Patient Tobacco Use Status: Former Tobacco user Quit Date: 1998 Tobacco use type: Cigarette Years Smoked: 35 +/- Review of Systems Const All systems reviewed & are unremarkable except as noted in HPI and below Reports no additional complaints ENT Reports Normal hearing present Card Denies chest pain, Denies chest pain at rest, Denies chest pain with activity and Denies pedal edema Resp Denies cough GI Denies abdominal pain Musc Denies abnormal gait, Denies muscle cramps and Denies radiating pain into limb Skin/Breast Denies skin ulcer and Denies wounds Neuro Reports Normal hearing present and Denies abnormal gait Psych Reports no additional complaints Physical Exam Const General: cooperative, healthy appearing and comfortable Orientation/consciousness: oriented to person, oriented to place and oriented to time HEENT Head: Yes normal to inspection Neck Neck: Yes normal visual inspection Carotids: no bruits Chest Chest palpation & inspection: normal inspection of the chest Resp Effort & Inspection: normal respiratory effort and able to speak in complete sentences Auscultation: clear to auscultation bilaterally, no crackles, no rales, no rhonchi and no wheezes Cardio Rate: regular rate Rhythm: regular rhythm Heart sounds: S1 normal heart sound present and S2 normal heart sound present Bruits: no carotid bruits Peripheral pulses: Peripheral pulses 2+ throughout GI Inspection: Yes normal to inspection Skin Wounds: no wounds Hair: normal Neuro General: oriented to person, oriented to place and oriented to time Cranial nerves: Yes CN's II-XII intact bilaterally and Yes Normal hearing present Cognition (Neuro): normal cognition Motor exam (neuro): 5/5 motor strength present throughout Extrem Other: venous exam: No significant superficial varicosities or spider telangiectasias, minimal edema General: No clubbing, No cyanosis and No edema Psych Appearance: grossly normal Mental Status: mental status grossly normal Speech and movement: Normal speech and movement present Results Reviewed Results Reviewed: Noninvasive arterial testing dated 04/16/2023 demonstrates AMELIA on the right of 0.63 and on the left of 0.71 with biphasic waveforms all the way down the left right-side it goes to monophasic in the tibial vessels. Written report and images were reviewed. Assessment & Plan Assessment & Plan (1) PAD (peripheral artery disease): Comment: 12/27/2022 - left common iliac and external iliac stent Code(s): I73.9 - Peripheral vascular disease, unspecified Plan: In short patient has stable claudication. He will complete his 6 months of Plavix and continue with lifelong baby aspirin I did review the pathophysiology of peripheral vascular disease with the patient. In addition we did discuss routine conservative measures including a healthy diet and the importance of exercise and ambulation. We did discuss risk factor modification. The patient will continue to to follow-up with surveillance follow-up in approximately 6 month. Thank you for allowing us to participate in this patient's care. If there are any questions or concerns please do not hesitate to contact us. Orders: Orders US arterial duplex LE BI 6 Months I73.9 - Peripheral vascular disease, unspecified Coding Level of Care Code Est Pt Level 4 (60700) Diagnoses PAD (peripheral artery disease) I73.9
== END 2023-05-10 15:32 | disposition home or self-care (01) ==
PROVIDERS: PCP Family Medicine; Visit Provider Surgery Vascular Surgery
DX: I73.9 Peripheral vascular disease, unspecified (principal); Z95.820 Peripheral vascular angioplasty status with implants and grafts
CPT/HCPCS: 99213

== ENCOUNTER → 2023-05-10 14:52 | Outpatient (BNVA) | payer MEDICARE, SELFPAY | PROVIDERS: PCP Family Medicine; Visit Provider Surgery Vascular Surgery | DX: I73.9 Peripheral vascular disease, unspecified (principal) | CPT/HCPCS: 99212 ==

== ENCOUNTER 2023-11-12 12:38 | Outpatient (REF) | payer MEDICARE, SELFPAY ==
--- NOTE | ~2023-11-12 | US_ITS ---
EXAMINATION: Noninvasive assessment of the bilateral lower extremities with ARTERIAL DUPLEX and ANKLE BRACHIAL INDICES (ABIs). CLINICAL INFORMATION: Peripheral vascular disease. History of left iliac artery stents TECHNIQUE: Duplex Doppler techniques with waveform analysis and measurement of velocities in the bilateral common femoral, profunda femoris, superficial femoral, popliteal and tibial arteries were performed. Additionally, ankle pulse volume recordings, ankle pressure measurements and ankle brachial indices were obtained of the lower extremity arterial system bilaterally. The study was performed only at rest. COMPARISON: Noninvasive arterial evaluation from 04/16/2023 FINDINGS: DIRECT DUPLEX DOPPLER FINDINGS: RIGHT LEG: Common femoral artery: 124 cm/s, phasicity: Triphasic Profunda femoris artery: 299 cm/s, phasicity: Biphasic Superficial femoral artery (proximal): 138 cm/s, phasicity: Triphasic Superficial femoral artery (mid): 101 cm/s, phasicity: Monophasic. Diffuse atherosclerotic wall calcifications Superficial femoral artery (distal): 90.8 cm/s, phasicity: Monophasic. Diffuse atherosclerotic wall calcifications Popliteal artery: 57.9 cm/s, phasicity: Biphasic. Scattered calcified plaque. Posterior tibial artery: 57.9 cm/s, phasicity: Monophasic Peroneal artery: 83.5 cm/s, phasicity: Biphasic Anterior tibial artery: 34.2 cm/s, phasicity: Monophasic Dorsalis pedis artery: 27.3 cm/s, phasicity:Monophasic LEFT LEG: Iliac artery: 198 cm/s, phasicity: Biphasic Common femoral artery: 170 cm/s, phasicity: Biphasic, calcified plaque Profunda femoris artery: 86.2 cm/s, phasicity: Biphasic Superficial femoral artery (proximal): 74.6 cm/s, phasicity: Triphasic Superficial femoral artery (mid): 98.2 cm/s, phasicity: Monophasic. Diffuse calcified plaque Superficial femoral artery (distal): 162 cm/s, phasicity: Biphasic. Diffuse calcified plaque Popliteal artery: 152 cm/s, phasicity: Biphasic. Scattered calcified plaque Posterior tibial artery: 119 cm/s, phasicity: Biphasic Peroneal artery: 87.7 cm/s, phasicity: Biphasic Anterior tibial artery: 57.1 cm/s, phasicity: Biphasic Dorsalis pedis artery: 69.4 cm/s, phasicity: Biphasic ANKLE-BRACHIAL INDEX: Right: 0.59?, previously 0.63 Left: 0.71 more previously 0.71 ANKLE PRESSURES: Right: PT 83, DP 79 Left: PT?100, DP?94 ANKLE PVR WAVEFORMS: Right: Abnormal Left: Abnormal US/US arterial duplex LE BI IMPRESSION: Right leg: Moderately decreased ankle brachial index which is unchanged compared to prior exam. Diffuse atherosclerotic plaque without significant arterial occlusion Left leg: Mildly decreased ankle brachial index which is unchanged compared to the prior exam. Patent arterial flow in the left iliac artery stents with borderline elevated velocity. Patent flow throughout the arterial vessels of the left lower extremity without significant arterial occlusion AMELIA Reference: - >1.4 = calcified vessels - 0.9 - 1.4 = normal - no significant arterial disease - 0.7 - 0.89 = mild peripheral arterial disease - 0.51 - 0.69 = moderate peripheral arterial disease - ? 0.50 = severe peripheral arterial disease - < .30 = critical arterial disease
== END 2023-11-12 12:39 | disposition home or self-care (01) ==
LOC: HO.US 12:38
PROVIDERS: PCP Family Medicine; Visit Provider Surgery Vascular Surgery
DX: I73.9 Peripheral vascular disease, unspecified (principal)
CPT/HCPCS: 93923; 93925

== ENCOUNTER 2023-12-25 12:52 | Outpatient (AMB) | payer MEDICARE, SELFPAY ==
--- NOTE | 2023-12-25 12:59 | MHC.OFFVIS ---
Vital Signs 12/25/23 13:00 Height 5 ft 4 in Weight 157 lb BMI 26.9 Intake Visit Reasons: 6m follow up s/p Arterial US 11/12/23 Intake Note: 6 mo follow up Arterial US 11/12/23 w/ hx of Left angio 12/27/22. Pt states no issues or changes but also not walking as much as usual. Accompanied by: Self / Same As Patient Allergies oxycodone [From Percodan] Adverse Reaction (Intermediate, Verified 05/10/23 14:58) hyperglycemia Seasonal Allergy (Unknown, Uncoded 01/11/23 10:04) Sneezing HPI HPI 6m follow up s/p Arterial US 11/12/23: Details: Very pleasant 68-year-old gentleman presents for surveillance follow-up regarding iliac stents. This was done back proximally a year ago. At the current time he is ambulating for blocks with no significant difficulty. He Kionex on a regular basis and remains active. He now presents for routine surveillance follow-up with noninvasive testing. [facility] Medical History Carotid stenosis Diabetes Surgical History S/P angiogram of extremity (12/27/22) History of cardiac cath History of CEA (carotid endarterectomy) Family History Father No problems noted. Mother No problems noted. Daughter No problems noted. Son No problems noted. Social History Alcohol intake: former Year quit: 1998 Patient Tobacco Use Status: Former Tobacco user Tobacco use type: Cigarette Years Smoked: 35 +/- Review of Systems Const All systems reviewed & are unremarkable except as noted in HPI and below Reports no additional complaints ENT Reports Normal hearing present Card Denies chest pain, Denies chest pain at rest, Denies chest pain with activity and Denies pedal edema Resp Denies cough GI Denies abdominal pain Musc Denies abnormal gait, Denies muscle cramps and Denies radiating pain into limb Skin/Breast Denies skin ulcer and Denies wounds Neuro Reports Normal hearing present and Denies abnormal gait Psych Reports no additional complaints Physical Exam Vital Signs: BMI result Body Mass Index 26.9 Const General: cooperative, healthy appearing and comfortable Orientation/consciousness: oriented to person, oriented to place and oriented to time HEENT Head: Yes normal to inspection Neck Neck: Yes normal visual inspection Carotids: no bruits Chest Chest palpation & inspection: normal inspection of the chest Resp Effort & Inspection: normal respiratory effort and able to speak in complete sentences Auscultation: clear to auscultation bilaterally, no crackles, no rales, no rhonchi and no wheezes Cardio Rate: regular rate Rhythm: regular rhythm Heart sounds: S1 normal heart sound present and S2 normal heart sound present Bruits: no carotid bruits Peripheral pulses: Peripheral pulses 2+ throughout GI Inspection: Yes normal to inspection Skin Wounds: no wounds Hair: normal Neuro General: oriented to person, oriented to place and oriented to time Cranial nerves: Yes CN's II-XII intact bilaterally and Yes Normal hearing present Cognition (Neuro): normal cognition Motor exam (neuro): 5/5 motor strength present throughout Extrem Other: venous exam: No significant superficial varicosities or spider telangiectasias, minimal edema General: No clubbing, No cyanosis and No edema Psych Appearance: grossly normal Mental Status: mental status grossly normal Speech and movement: Normal speech and movement present Results Reviewed Results Reviewed: Noninvasive arterial testing dated 11/12/2023 demonstrates AMELIA on the left of 0.71 and on the right of 0.59. Written report and images were reviewed. Assessment & Plan Assessment & Plan (1) PAD (peripheral artery disease): Comment: 12/27/2022 - left common iliac and external iliac stent Code(s): I73.9 - Peripheral vascular disease, unspecified Category: Medical Plan: In short patient has stable claudication with patent stents. I did review the pathophysiology of peripheral vascular disease with the patient. In addition we did discuss routine conservative measures including a healthy diet and the importance of exercise and ambulation. We did discuss risk factor modification. The patient will continue to to follow-up with surveillance follow-up in approximately 1 year. Thank you for allowing us to participate in this patient's care. If there are any questions or concerns please do not hesitate to contact us. (2) Bilateral carotid artery stenosis: Comment: 02/04/2018- right carotid endarterectomy Code(s): I65.23 - Occlusion and stenosis of bilateral carotid arteries Category: Medical Plan: Has not been surveilled since January of 2023. Will repeat carotid testing and then order annual surveillance. (3) Varicose veins of right lower extremity with inflammation: Comment: 01/21/2021 - right great saphenous vein Radiofrequency ablation Code(s): I83.11 - Varicose veins of right lower extremity with inflammation Category: Medical Plan: Swelling stable Orders: Orders US carotid duplex BI 1 Week I65.23 - Occlusion and stenosis of bilateral carotid arteries US arterial duplex LE BI 1 Year I73.9 - Peripheral vascular disease, unspecified US abdominal aortic aneurysm 1 Year I73.9 - Peripheral vascular disease, unspecified US carotid duplex BI 1 Year I65.23 - Occlusion and stenosis of bilateral carotid arteries Coding Level of Care Code Est Pt Level 4 (60432) Diagnoses PAD (peripheral artery disease) I73.9 Bilateral carotid artery stenosis I65.23 Varicose veins of right lower extremity with inflammation I83.11
[2023-12-25 13:00] VITALS: BMI 26.9
== END 2023-12-25 13:44 | disposition home or self-care (01) ==
PROVIDERS: Visit Provider Surgery Vascular Surgery
DX: I73.9 Peripheral vascular disease, unspecified (principal); I65.23 Occlusion and stenosis of bilateral carotid arteries; I83.11 Varicose veins of right lower extremity with inflammation
CPT/HCPCS: 99214

== ENCOUNTER → 2023-12-25 12:52 | Outpatient (BNVA) | payer MEDICARE, SELFPAY | PROVIDERS: Visit Provider Surgery Vascular Surgery | DX: I65.23 Occlusion and stenosis of bilateral carotid arteries (principal); I73.9 Peripheral vascular disease, unspecified; I83.11 Varicose veins of right lower extremity with inflammation | CPT/HCPCS: 99212 ==

== ENCOUNTER 2024-01-03 13:41 | Outpatient (REF) | payer MEDICARE, SELFPAY ==
--- NOTE | ~2024-01-03 | US_ITS ---
EXAMINATION: US EXTRACRANIAL CAROTID DUPLEX, BILATERAL CLINICAL INFORMATION: Carotid stenosis. History of right carotid endarterectomy COMPARISON: 02/14/2023 and 02/21/2022 TECHNIQUE: Real-time ultrasound and Doppler techniques (integrating B-mode 2-D vascular images, Doppler spectral analysis and color-flow Doppler imaging) were utilized to interrogate the extracranial carotid arteries, the vertebral arteries and proximal subclavian arteries bilaterally. The degree of stenosis is determined by criteria similar to NASCET. FINDINGS: Right Side: 1. Status post prior carotid endarterectomy. There is mild atherosclerotic plaque seen in the bifurcation/proximal ICA region. 2. The common carotid artery PSV proximally is 109 cm/s and distally 80.6 cm/s. 3. The proximal internal carotid artery velocities are 73.4 cm/s systolic and 16.8 cm/s diastolic. 4. The proximal external carotid artery PSV is 183 cm/s. 5. The vertebral artery shows antegrade flow. 6. The subclavian artery waveforms are normal. Left Side: 1. There is mild atherosclerotic plaque seen in the bifurcation/proximal ICA region. 2. The common carotid artery PSV proximally is 124 cm/s and distally 72.4 cm/s. 3. The proximal internal carotid artery velocities are 119 cm/s systolic and 25.6 cm/s diastolic. 4. The proximal external carotid artery PSV is 197 cm/s. 5. The vertebral artery shows antegrade flow. 6. The subclavian artery waveforms are normal. US/US carotid duplex BI IMPRESSION: 1. RIGHT: Minimal, non-hemodynamically significant stenosis of the proximal right internal carotid artery corresponding to a 0-49% stenosis by velocity criteria. 2. LEFT: Minimal, non-hemodynamically significant stenosis of the proximal left internal carotid artery corresponding to a 0-49% stenosis by velocity criteria. 3. There is no change in the category severity of disease when compared to the previous study dated 02/14/2023.
== END 2024-01-03 13:42 | disposition home or self-care (01) ==
LOC: HO.US 13:41
PROVIDERS: Visit Provider Surgery Vascular Surgery
DX: I65.23 Occlusion and stenosis of bilateral carotid arteries (principal)
CPT/HCPCS: 93880

== ENCOUNTER 2024-01-07 12:36 | Outpatient (AMB) | payer MEDICARE, SELFPAY ==
--- NOTE | 2024-01-07 12:47 | MHC.OFFVIS ---
Vital Signs 01/07/24 12:48 Height 5 ft 4 in Weight 164 lb 0.383 oz BMI 28.2 BP 130/60 Blood Pressure Location Lt brachial Position Sitting Pulse 83 Pulse Source Monitor Intake Visit Reasons: 1 yr f/up Intake Note: 1 yr f/up- pt is doing fine Online Advertising Director Required: No Accompanied by: Self / Same As Patient Allergies oxycodone [From Percodan] Adverse Reaction (Intermediate, Verified 05/10/23 14:58) hyperglycemia Seasonal Allergy (Unknown, Uncoded 01/11/23 10:04) Sneezing Medication List - Last Reconciled 01/07/24 by Dejan Gerardo MD albuterol sulfate 90 mcg/actuation 2 puffs inhalation Q4H PRN amlodipine 10 mg PO DAILY aspirin (Adult Aspirin Regimen) 81 mg PO DAILY atorvastatin 40 mg PO BEDTIME blood sugar diagnostic As directed chlorthalidone 50 mg PO DAILY cyanocobalamin (vitamin B-12) 1,000 mcg PO DAILY dorzolamide-timolol 22.3-6.8 mg/mL 1 drp ophthalmic (eye) BID nefcuvomtak-qsoygichf-jhkiauiw 200-62.5-25 mcg (Trelegy Ellipta) 1 inh inhalation DAILY insulin admin supplies (InPen (for Humalog) subcutaneous) As directed insulin glargine 16 units subcut DAILY insulin lispro 8 units subcut TID metformin 850 mg PO TID moexipril 15 mg PO BID pen needle, diabetic As directed sildenafil 100 mg PO DAILY PRN HPI Comments Details: 69-year-old gentleman is presenting for follow-up. He previously had cardiac catheterization which showed 40% lad stenosis. He came for follow-up after few years and was complaining of chest discomfort. He was referred for stress testing which showed fixed inferior perfusion defect with differential of diaphragmatic attenuation versus scar. Given ongoing symptoms we decided to bring him back for diagnostic angiography. He underwent diagnostic angiogram from right femoral approach because we could not pass a wire through the right radial artery because it was already occluded. His angiogram did not show any significant change in anatomy to explain symptoms. The fixed inferior defect was thought to be an artifact due to diaphragm. 01/08/23: He is here for follow-up. Blood pressure control is good. He underwent lower extremity PCI by Dr. Lassiter. He is on aspirin Plavix. Denying any chest discomfort or significant shortness of breath. He said he was short of breath before he started exercise recently but with progressive activities dyspnea is improved significantly. I think this was due to deconditioning. 01/07/24: He is here for f/u. He had an episode of hypoglycemia of 23. He was at [facility]. His insulin has been adjusted. No CV symptoms. [facility] Medical History Carotid stenosis Diabetes Surgical History S/P angiogram of extremity (12/27/22) History of cardiac cath History of CEA (carotid endarterectomy) Family History Father No problems noted. Mother No problems noted. Daughter No problems noted. Son No problems noted. Social History Alcohol intake: former Year quit: 1998 Patient Tobacco Use Status: Former Tobacco user Tobacco use type: Cigarette Years Smoked: 35 +/- Review of Systems Const Denies chills, Denies fatigue, Denies fever(s), Denies frequent falls, Denies weakness, Denies weight gain and Denies weight loss ENT Denies dizziness Card Denies chest pain, Denies leg edema, Denies lightheadedness, Denies palpitations, Denies dyspnea and Denies dyspnea on exertion Resp Denies cough, Denies dyspnea and Denies dyspnea on exertion GI Denies hematochezia Musc Denies abnormal gait, Denies muscle weakness, Denies numbness, Denies radiating pain into limb and Denies tingling Neuro Denies abnormal gait, Denies dizziness, Denies frequent falls, Denies numbness, Denies tingling and Denies weakness Endo Denies fatigue and Denies palpitations Physical Exam Vital Signs: Last Vital Signs Pulse 83 01/07/24 12:48 BP 130/60 01/07/24 12:48 BMI result Body Mass Index 28.2 GENERAL APPEARANCE: in no acute distress, pleasant. NECK: no carotid bruit, no jugular venous distention. Right carotid endarterectomy scar. SKIN: no suspicious lesions, warm and dry. HEART: no murmurs, regular rate and rhythm. LUNGS: clear to auscultation bilaterally. ABDOMEN: soft, nontender. EXTREMITIES: no edema. PERIPHERAL PULSES: equal. NEUROLOGIC: No gross deficits, AAO X 3 Office Procedures EKG Details: Sinus rhythm 88 beats per minute, right axis deviation, premature atrial complexes, QTC 399 milliseconds. [id number], Complete Assessment & Plan Assessment & Plan (1) PAD (peripheral artery disease): Comment: 12/27/2022 - left common iliac and external iliac stent Code(s): I73.9 - Peripheral vascular disease, unspecified Category: Medical (2) Coronary artery disease: Code(s): I25.10 - Atherosclerotic heart disease of [place] coronary artery without angina pectoris Category: Medical Plan 69-year-old gentleman who is here for follow-up. He has history of carotid disease and had endarterectomy in the past. He also had lower extremity intervention and is on aspirin. Sugar control has been poor. Recent hypoglycemic episode was quite concerning and he was admitted to [facility]. Referring to endocrinology. Thank you for allowing me to participate in the care of your patient. Please feel free to contact me if you have any questions. Orders: Referrals Endocrinology Referral E11.9 - Type 2 diabetes mellitus without complications Coding Level of Care Code Est Pt Level 3 (82818) Diagnoses PAD (peripheral artery disease) I73.9 Coronary artery disease I25.10 CPT Codes EKG - CPT: 87630-[id number], Complete ([id number])
[2024-01-07 12:48] VITALS: BP 130/60; PULSE 83; BMI 28.2
== END 2024-01-07 13:37 | disposition home or self-care (01) ==
PROVIDERS: PCP Family Medicine; Visit Provider Internal Medicine Cardiovascular Disease
DX: I73.9 Peripheral vascular disease, unspecified (principal); I25.10 Atherosclerotic heart disease of native coronary artery without angina pectoris
CPT/HCPCS: 93010; 99213

== ENCOUNTER → 2024-01-07 12:36 | Outpatient (BNVA) | payer MEDICARE, SELFPAY | PROVIDERS: PCP Family Medicine; Visit Provider Internal Medicine Cardiovascular Disease | DX: I73.9 Peripheral vascular disease, unspecified (principal); I25.10 Atherosclerotic heart disease of native coronary artery without angina pectoris; I10 Essential (primary) hypertension | CPT/HCPCS: 93005; 99212 ==

== ENCOUNTER 2024-01-29 13:02 | Outpatient (AMB) | payer MEDICARE, SELFPAY ==
--- NOTE | 2024-01-29 13:04 | A.OFFVIS_ITS ---
Vital Signs 01/29/24 13:07 Height 5 ft 4 in Weight 165 lb 12.602 oz BMI 28.5 BP 114/56 L Blood Pressure Location Rt brachial Position Sitting Pulse 92 Pulse Source Pulse Oximeter Intake Visit Reasons: Type 2 DM/CONFIRMED Intake Note: New patient present today for Diabetes Mellitus Management. Patient receives DME supplies through: Pharmacy. Last Diabetic Eye exam: Has an appointment end of January or beginning of February Last Podiatry Visit: Does not see a Manager [employer] Random Glucose: 165 mg/dl HgA1C: 8.2% Accompanied by: Spouse Allergies oxycodone [From Percodan] Adverse Reaction (Intermediate, Verified 01/29/24 13:08) hyperglycemia Seasonal Allergy (Unknown, Uncoded 01/29/24 13:08) Sneezing HPI Comments Details: This is a 69-year-old male with a past medical history of CAD, PAD and type 2 diabetes presenting for initial endocrinology consult for diabetic management. He is accompanied by his . His brother and sister had type 2 diabetes. Patient diagnosed in his 40s with Type II DM. I reviewed today's CGM download dated 01/08/2024 to 01/21/24: Average glucose 177 GMI 7.6% Blood glucose in target range (70-180) 58 % of the time Blood glucose high (181-250) 31 % of the time Blood glucose very high (>250) 10 % of the time Blood glucose low (55-69) 1% of the time Blood glucose very low (less than 55) <1% of the time Pattern of nighttime highs between midnight and 3am. They tell me that the day they switched his sensor the CGM was alerting low, but he was not actually low. Hemoglobin a1c 8.2% POC 165. Current medication regimen: Lantus 16 units daily, humalog 8 units 3 times a day, metformin 850 mg 3 times a day. Compliance issues: Patient is administering humalog three times per day, but frequently he takes it after eating or makes a correction after eating based on the postprandial BG. Diet: Breakfast-10 am polish muffin with cheese, coffee 1% milk, boiled eggs Lunch-half a sandwich or full sandwich around 2 pm Dinner-6 pm protein, vegetable, low carb Snacks/desserts: crackers He's lost 13 pounds within the last few months. Hypoglycemia symptoms: shaky and weak, corrects with juice. This would happen in the afternoon. He had a profound episode of hypoglycemia resulting in seizure and unresponsiveness about 4 weeks ago. He was conscious when his left to run errand When he returned she found him like this a 1/2 hour later. She called 911. He was taken to the ER where his BG was 20. Hyperglycemia symptoms: none Eye exam: Scheduled in January or February this year. Microvascular complications: none Macrovascular complications: CAD, PAD (iliac stents) Hypertension: treated with amlodipine 10 mg daily, chlorthalidone 50 mg daily. Hyperlipidemia: treated with atorvastatin 40 mg daily. ROS: Constitutional: No unexplained weight loss, fever, chills, fatigue or night sweats. Eyes: No vision changes, blurry vision, double vision, eye pain, eye redness, eye discharge. Respiratory: No shortness of breath Cardiovascular: No chest pain, Skin: No rash or open wounds. Endocrine: No cold or heat intolerance. No polyuria or polydipsia. Physical exam: Constitutional: Alert, in no distress. Eyes: Pupils are equal, round and reactive to light. Extraocular muscles intact. Neck: Supple, Full range of motion. No lymphadenopathy. No palpable thyroid masses. Respiratory: Clear to auscultation. Cardiovascular: S1 S2 regular. No murmurs. Right foot: Warm and well perfused. No clubbing, cyanosis or edema. DP pulse 2+. Decreased vibratory sensation. Intact sensation to monofilament. Left foot: Warm and well perfused. No clubbing, cyanosis or edema. DP pulse 2+. Decreased vibratory sensation. Intact sensation to monofilament. [facility] Medical History (Updated 01/29/24 @ 14:34 by SHEREE Pérez) Hypoglycemia Type 2 diabetes mellitus with circulatory disorder, with long-term current use of insulin Carotid stenosis Diabetes Surgical History S/P angiogram of extremity (12/27/22) History of cardiac cath History of CEA (carotid endarterectomy) Family History Father No problems noted. Mother No problems noted. Daughter No problems noted. Son No problems noted. Social History Alcohol intake: former Year quit: 1998 Patient Tobacco Use Status: Former Tobacco user Tobacco use type: Cigarette Years Smoked: 35 +/- Physical Exam Vital Signs: Last Vital Signs Pulse 92 01/29/24 13:07 BP 114/56 L 01/29/24 13:07 BMI result Body Mass Index 28.5 Results AMB Hemoglobin A1c AMB Hemoglobin A1c 8.2 % Last Edit by TRESA Campo on 01/29/24 13:24 Results Reviewed Results Reviewed: Laboratory Tests 12/27/22 01/11/23 06:22 09:01 Creatinine 1.01 Estim Creat Clear Calc 63.7 Estimated GFR > 60 Triglycerides 79 Cholesterol 132 LDL Cholesterol, Calc 63 HDL Cholesterol 54 Assessment & Plan Assessment & Plan (1) Type 2 diabetes mellitus with circulatory disorder, with long-term current use of insulin: Code(s): E11.59 - Type 2 diabetes mellitus with other circulatory complications; Z79.4 - residential (current) use of insulin Category: Medical Qualifiers: Diabetes mellitus complication detail: with peripheral angiopathy without gangrene Qualified Code(s): E11.51 - Type 2 diabetes mellitus with diabetic peripheral angiopathy without gangrene; Z79.4 - sap solution manager consultant (current) use of insulin (2) Hypoglycemia: Code(s): E16.2 - Hypoglycemia, unspecified Category: Medical Plan In summary this is a 69-year-old male with suboptimally controlled type 2 diabetes on basal bolus and prandial insulin in addition to metformin. Patient had profound hypoglycemia a month ago. It sounds like this was due to a number of factors including recent weight loss, decreased p.o. intake which they attribute to his age and improper administration of short-acting insulin. They have glucose tablets at home. We reviewed proper treatment of hypoglycemia. Given episode of hypoglycemia with unresponsiveness I prescribed Baqsimi. Administration reviewed. I will also change Lantus to Tresiba which is preferred in patients prone to hypoglycemia. In addition to this we reviewed proper administration of short-acting insulin. He should administer Humalog 15 minutes prior to meals, and rather than administering 8 units t.i.d. he will start using a sliding scale (provided in writing). If he has further episodes of hypoglycemia they will call the office. I will have him follow-up in 4 weeks to see how he does on this regimen. Referred to in service educator. Continue CGM. I have also prescribed a freestyle Lite glucometer. Follow-up in 4 weeks for diabetes. Orders: Orders AMB Hemoglobin A1c Today E11.9 - Type 2 diabetes mellitus without complications Medications: New lancets (FreeStyle Lancets) Use as directed to monitor glucose up to 5 times daily 200 ea 5RF insulin degludec (Tresiba U-100 Insulin) Replaces insulin glargine (Lantus) 16 units (0.16 mL) subcut BEDTIME 10 mL 5RF glucagon 3 mg/actuation (Baqsimi) 3 mg (one actuation) into a single nostril; if no response, may repeat in 15 minutes using a new intranasal device 3 mg intranasal ONCE 2 ea 5RF hypoglycemia blood-glucose meter (FreeStyle Lite Meter kit) as directed to monitor blood glucose 1 ea 0RF E11.9 - Type 2 diabetes mellitus without complications blood sugar diagnostic (FreeStyle Lite Strips) As directed to check glucose up to 5 times daily 200 ea 5RF Patient Instructions: Switch Lantus to Tresiba and continue 16 units at bedtime Blood sugar under 150: no short acting insulin Blood sugar 150-199 mg/dL take 2 units Blood sugar 200-249 mg/dL take 4 units Blood sugar 250-299 mg/dL take 8 units Blood sugar 300-349 mg/dL take 10 units Blood sugar 350-399 mg/dL take 12 units Blood sugar >/=400 mg /dL take 15 units I have sent Baqsimi to treat low sugars. I have sent a freestyle lite glucometer. I referred you to see the in service educator here in the office. Coding Level of Care Code New Pt Level 5 (01480) Complex EM visit Add On G2211 Diagnoses Type 2 diabetes mellitus with diabetic peripheral angiopathy without gangrene, with long-term current use of insulin E11.51; Z79.4 Diabetes mellitus complication detail: with peripheral angiopathy without gangrene Hypoglycemia E16.2 Time Spent (min) 60 Comment direct patient care, completing documentation
[2024-01-29 13:07] VITALS: BP 114/56; PULSE 92; BMI 28.5
[2024-01-29 13:19] LABS: Glucose, Whole Blood 165 mg/dL (60-115)
== END 2024-01-29 14:14 | disposition home or self-care (01) ==
PROVIDERS: PCP Family Medicine; Visit Provider Physician Assistant Medical
DX: E11.51 Type 2 diabetes mellitus with diabetic peripheral angiopathy without gangrene (principal); Z79.4 Long term (current) use of insulin; E11.65 Type 2 diabetes mellitus with hyperglycemia
CPT/HCPCS: 99205; G2211

== ENCOUNTER → 2024-01-29 13:02 | Outpatient (BNVA) | payer MEDICARE, SELFPAY | PROVIDERS: PCP Family Medicine; Visit Provider Physician Assistant Medical | DX: E11.51 Type 2 diabetes mellitus with diabetic peripheral angiopathy without gangrene (principal); E16.2 Hypoglycemia, unspecified; Z79.4 Long term (current) use of insulin | CPT/HCPCS: 82947; 83036; 99202 ==

== ENCOUNTER 2024-02-26 13:46 | Outpatient (AMB) | payer MEDICARE, SELFPAY ==
[2024-02-26 13:58] VITALS: BP 136/56; PULSE 90; BMI 35.9
--- NOTE | 2024-02-26 13:58 | A.OFFVIS_ITS ---
Vital Signs 02/26/24 13:58 Height 5 ft 4 in Weight 209 lb 7.026 oz BMI 35.9 BP 136/56 L Blood Pressure Location Rt brachial Position Sitting Pulse 90 Pulse Source Pulse Oximeter Intake Visit Reasons: diabetes/CONFIRMED Intake Note: Patient present today to follow up on Type 2 Diabetes Mellitus. Patient receives DME supplies through: Pharmacy Last Diabetic Eye exam: 02/2023 Last Podiatry Visit: Does not see a Hotel Registration Clerk Random Glucose: 176 mg/dl HgA1C: 8.2% 01/29/2024 Event Mgr Required: No Accompanied by: Spouse Allergies oxycodone [From Percodan] Adverse Reaction (Intermediate, Verified 02/26/24 14:03) hyperglycemia Seasonal Allergy (Unknown, Uncoded 02/26/24 14:03) Sneezing HPI Comments Details: This is a 69-year-old male with a past medical history of CAD, PAD and type 2 diabetes presenting for diabetic management. He is accompanied by his . I saw him last on 01/29/24. His brother and sister had type 2 diabetes. Patient diagnosed in his 40s with Type II DM. Reviewed day's download from [email or web address] 7% CGM in use 100% of the time Time in range 77% Hypoglycemia 0% High 19% Very high 4% Standard deviation 44 mg/dL Patient has some episodes of hyperglycemia in the evening and overnight. Hemoglobin a1c 8.2% 01/29/24. POC 176. Current medication regimen: Tresiba 16 units daily, humalog sliding scale before meals, metformin 850 mg 3 times a day. Blood sugar under 150: no humalog Blood sugar 150-199 mg/dL take 2 units Blood sugar 200-249 mg/dL take 4 units Blood sugar 250-299 mg/dL take 8 units Blood sugar 300-349 mg/dL take 10 units Blood sugar 350-399 mg/dL take 12 units Blood sugar >/=400 mg /dL take 15 units Compliance issues: Patient doing better administer humalog before meals, but still forgets it occasionally. Diet: Breakfast-10 am omani muffin with cheese, coffee 1% milk, boiled eggs Lunch-half a sandwich or full sandwich around 2 pm Dinner-6 pm protein, vegetable, low carb Snacks/desserts: crackers Hypoglycemia symptoms: shaky and weak, corrects with juice. Reports 1 episode within the past month. He had a profound episode of hypoglycemia resulting in seizure and unresponsiveness over the Summer. Insurance covered [employer]. He also has glucose tablets. Hyperglycemia symptoms: none Eye exam: Scheduled Microvascular complications: none Macrovascular complications: CAD, PAD (iliac stents) Hypertension: treated with Lisinopril 40 mg, amlodipine 10 mg daily, chlorthalidone 50 mg daily. Hyperlipidemia: treated with atorvastatin 40 mg daily. ROS: Constitutional: No unexplained weight loss, fever, chills, fatigue or night sweats. Eyes: No vision changes, blurry vision, double vision, eye pain, eye redness, eye discharge. Respiratory: No shortness of breath Cardiovascular: No chest pain, Skin: No rash or open wounds. Endocrine: No cold or heat intolerance. No polyuria or polydipsia. Physical exam: Constitutional: Alert, in no distress. Eyes: Pupils are equal, round and reactive to light. Extraocular muscles intact. Neck: Supple, Full range of motion. No lymphadenopathy. No palpable thyroid masses. Respiratory: Clear to auscultation. Cardiovascular: S1 S2 regular. No murmurs. Right foot: Warm and well perfused. No clubbing, cyanosis or edema. DP pulse 2+. Decreased vibratory sensation. Intact sensation to monofilament. Left foot: Warm and well perfused. No clubbing, cyanosis or edema. DP pulse 2+. Decreased vibratory sensation. Intact sensation to monofilament. [facility] Medical History (Updated 01/29/24 @ 14:34 by SHEREE Pérez) Hypoglycemia Type 2 diabetes mellitus with circulatory disorder, with long-term current use of insulin Carotid stenosis Diabetes Surgical History S/P angiogram of extremity (12/27/22) History of cardiac cath History of CEA (carotid endarterectomy) Family History Father No problems noted. Mother No problems noted. Daughter No problems noted. Son No problems noted. Social History Alcohol intake: former Year quit: 1998 Patient Tobacco Use Status: Former Tobacco user Tobacco use type: Cigarette Years Smoked: 35 +/- Office Procedures Glucose Monitoring Details Details: see HPI [id number] - Glucose monitoring, continuous-physician I&R Procedure code (CPT) selection complete Results Reviewed Results Reviewed: Laboratory Tests 12/27/22 01/11/23 06:22 09:01 Creatinine 1.01 Estim Creat Clear Calc 63.7 Estimated GFR > 60 Triglycerides 79 Cholesterol 132 LDL Cholesterol, Calc 63 HDL Cholesterol 54 Assessment & Plan Assessment & Plan (1) Type 2 diabetes mellitus with circulatory disorder, with long-term current use of insulin: Code(s): E11.59 - Type 2 diabetes mellitus with other circulatory complications; Z79.4 - residential (current) use of insulin Category: Medical Qualifiers: Diabetes mellitus complication detail: with peripheral angiopathy without gangrene Qualified Code(s): E11.51 - Type 2 diabetes mellitus with diabetic peripheral angiopathy without gangrene; Z79.4 - termite renewal inspector (current) use of insulin (2) Hypoglycemia: Code(s): E16.2 - Hypoglycemia, unspecified Category: Medical Plan In summary this is a 69-year-old male with controlled type 2 diabetes per recent CGM download on basal-bolus insulin regimen and metformin. He has no recent episodes of hypoglycemia. He has glucose tablets at home, and insurance covered [employer]. Continue Tresiba 16 units daily. Reviewed proper administration of Humalog 15 minutes prior to meals. He is doing better now on a sliding scale. If he is having more carbohydrates with dinner he can add an additional 2 units of Humalog to the sliding scale before dinner to combat episodes of hyperglycemia that are occurring sometimes. Follow up in 3 months for type 2 diabetes. Orders: Orders AMB Glucose Monitoring Today E11.9 - Type 2 diabetes mellitus without complications Medications: New glucose (Dex4 Glucose Quick Dissolve) until symptoms of low blood sugar are controlled 16 grams (4 x 4 gram) PO Q15M PRN 30 tabs 3RF hypoglycemia Coding Level of Care Code Est Pt Level 4 (97521) Diagnoses Type 2 diabetes mellitus with diabetic peripheral angiopathy without gangrene, with long-term current use of insulin E11.51; Z79.4 Diabetes mellitus complication detail: with peripheral angiopathy without gangrene Hypoglycemia E16.2 CPT Codes Details - CPT: 81014 - Glucose monitoring, continuous-physician I&R ([id number])
[2024-02-26 14:11] LABS: Glucose, Whole Blood 176 mg/dL (60-115)
== END 2024-02-26 14:32 | disposition home or self-care (01) ==
PROVIDERS: PCP Family Medicine; Visit Provider Physician Assistant Medical
DX: E11.51 Type 2 diabetes mellitus with diabetic peripheral angiopathy without gangrene (principal); Z79.4 Long term (current) use of insulin; E16.2 Hypoglycemia, unspecified

== ENCOUNTER → 2024-02-26 13:46 | Outpatient (BNVA) | payer MEDICARE, SELFPAY | PROVIDERS: PCP Family Medicine; Visit Provider Physician Assistant Medical | DX: E11.59 Type 2 diabetes mellitus with other circulatory complications (principal); E11.51 Type 2 diabetes mellitus with diabetic peripheral angiopathy without gangrene; E16.2 Hypoglycemia, unspecified; E78.5 Hyperlipidemia, unspecified; Z79.4 Long term (current) use of insulin; Z79.899 Other long term (current) drug therapy | CPT/HCPCS: 82947; 99212 ==

== ENCOUNTER 2024-06-03 13:11 | Outpatient (AMB) | payer MEDICARE, SELFPAY ==
--- NOTE | 2024-06-03 13:16 | MHC.OFFVIS ---
Vital Signs 06/03/24 13:20 06/03/24 13:54 Height 5 ft 4 in Weight 156 lb 15.506 oz BMI 26.9 BP 110/52 L Blood Pressure Location Rt brachial Position Sitting Pulse 102 H 92 Pulse Source Pulse Oximeter Intake Visit Reasons: T2DM Intake Note: Patient present today to follow up on Type 2 Diabetes Mellitus. Last Diabetic Eye exam: Has an appointment 1-2 weeks from now. Is seen every 2 years. Last Podiatry Visit: Has an appointment in a couple days Random Glucose: 221 mg/dl HgA1C: 7.6% 06/03/2024 Metallographic Technician Required: No Accompanied by: Self / Same As Patient Allergies oxycodone [From Percodan] Adverse Reaction (Intermediate, Verified 06/03/24 13:21) hyperglycemia Seasonal Allergy (Unknown, Uncoded 06/03/24 13:21) Sneezing HPI Comments Details: This is a 69-year-old male with a past medical history of CAD, PAD and type 2 diabetes presenting for diabetic management. His brother and sister had type 2 diabetes. Patient diagnosed in his 40s with Type II DM. Reviewed Dexcom data for the past 2 weeks: Average glucose 147 mg/dL Standard deviation 55 mg/dL GMI 6.8% Very high 4% High 16% Target range 80% 0% hypoglycemia. He had a pattern of hyperglycemia between 2am and 3am. Patient has his biggest meal at dinner which usually has carbohydrates, and he has a snack of crackers and cheese an hour or 2 before bed. Hemoglobin a1c 7.6% 01/29/24. GMI for the past 90 days per sensor 7.1%. 7% for the last 30 days. Current medication regimen: Tresiba 16 units daily, humalog sliding scale before meals, metformin 850 mg 3 times a day. Blood sugar under 150: no humalog Blood sugar 150-199 mg/dL take 2 units Blood sugar 200-249 mg/dL take 4 units Blood sugar 250-299 mg/dL take 8 units Blood sugar 300-349 mg/dL take 10 units Blood sugar 350-399 mg/dL take 12 units Blood sugar >/=400 mg /dL take 15 units Compliance issues: None. Patient says his sugars are usually always in target range before breakfast and lunch so he does not administer Humalog. He occasionally has to administer it before dinner. Hypoglycemia symptoms: shaky and weak, corrects with juice. Reports 1 episode within the past few months. He had a profound episode of hypoglycemia resulting in seizure and unresponsiveness over the Summer of 2023. Insurance covered [employer]. He also has glucose tablets. Hyperglycemia symptoms: none Eye exam: Scheduled Microvascular complications: none Macrovascular complications: CAD, PAD (iliac stents) Hypertension: treated with Lisinopril 40 mg, amlodipine 10 mg daily, chlorthalidone 50 mg daily. Hyperlipidemia: treated with atorvastatin 40 mg daily. ROS: Constitutional: No unexplained weight loss, fever, chills, fatigue or night sweats. Eyes: No vision changes, blurry vision, double vision, eye pain, eye redness, eye discharge. Respiratory: No shortness of breath Cardiovascular: No chest pain, Skin: No rash or open wounds. Endocrine: No cold or heat intolerance. No polyuria or polydipsia. Physical exam: Constitutional: Alert, in no distress. Eyes: Pupils are equal, round and reactive to light. Extraocular muscles intact. Neck: Supple, Full range of motion. No lymphadenopathy. No palpable thyroid masses. Respiratory: Clear to auscultation. Cardiovascular: S1 S2 regular. No murmurs. Right foot: Warm and well perfused. No clubbing, cyanosis or edema. DP pulse 2+. Decreased vibratory sensation. Intact sensation to monofilament. Left foot: Warm and well perfused. No clubbing, cyanosis or edema. DP pulse 2+. Decreased vibratory sensation. Intact sensation to monofilament. [facility] Medical History (Updated 01/29/24 @ 14:34 by SHEREE Pérez) Hypoglycemia Type 2 diabetes mellitus with circulatory disorder, with long-term current use of insulin Carotid stenosis Diabetes Surgical History S/P angiogram of extremity (12/27/22) History of cardiac cath History of CEA (carotid endarterectomy) Family History Father No problems noted. Mother No problems noted. Daughter No problems noted. Son No problems noted. Social History Alcohol intake: former Year quit: 1998 Patient Tobacco Use Status: Former Tobacco user Tobacco use type: Cigarette Years Smoked: 35 +/- Physical Exam Vital Signs: Last Vital Signs Pulse 102 H 06/03/24 13:20 BP 110/52 L 06/03/24 13:20 BMI result Body Mass Index 26.9 Office Procedures Glucose Monitoring Details Details: see [facility] [id number] - Glucose monitoring, continuous-physician I&R Procedure code (CPT) selection complete Results AMB Hemoglobin A1c AMB Hemoglobin A1c 7.6 % Last Edit by TRESA Campo on 06/03/24 13:45 Results Reviewed Results Reviewed: Laboratory Last Values Glucose (Clinic) 221 mg/dL (60-115) H 06/03/24 13:27 Laboratory Tests 12/27/22 01/11/23 06:22 09:01 Creatinine 1.01 Estim Creat Clear Calc 63.7 Estimated GFR > 60 Triglycerides 79 Cholesterol 132 LDL Cholesterol, Calc 63 HDL Cholesterol 54 Assessment & Plan Assessment & Plan (1) Type 2 diabetes mellitus with circulatory disorder, with long-term current use of insulin: Code(s): E11.59 - Type 2 diabetes mellitus with other circulatory complications; Z79.4 - tank terminal gauger (current) use of insulin Category: Medical Qualifiers: Diabetes mellitus complication detail: with peripheral angiopathy without gangrene Qualified Code(s): E11.51 - Type 2 diabetes mellitus with diabetic peripheral angiopathy without gangrene; Z79.4 - tank terminal gauger (current) use of insulin (2) Hypoglycemia: Code(s): E16.2 - Hypoglycemia, unspecified Category: Medical Plan In summary this is a 69-year-old male with controlled type 2 diabetes per recent CGM download on basal-bolus insulin regimen and metformin. He has glucose tablets at home, and insurance covered [employer]. We reviewed treatment of hypoglycemia. Continue Tresiba 16 units daily. Continue metformin 850 mg 3 times daily. He uses a sliding scale for Humalog, and his insulin requirement has decreased. To improve overnight hyperglycemia he will change the type of snack he has before bedtime. I provided him with a list of low carbohydrate snack options. We discussed SGLT2 and GLP 1 medications given his history of cardiovascular disease. We discussed addition of these medications may further decrease his insulin requirement. He is not interested in changing his medication regimen at this time. Given discrepancy between GMI and fingerstick A1c, I have printed a lab order to check hemoglobin A1c. I also gave him orders for a lipid panel, BMP, urine microalbumin and BNP. Follow up in 3 months for type 2 diabetes. Orders: Orders AMB Hemoglobin A1c Today E11.51 - Type 2 diabetes mellitus with diabetic peripheral angiopathy without gangrene, Z79.4 - prison (current) use of insulin Basic Metabolic Panel Today E11.51 - Type 2 diabetes mellitus with diabetic peripheral angiopathy without gangrene, Z79.4 - prison (current) use of insulin Lipid Panel Today E11.51 - Type 2 diabetes mellitus with diabetic peripheral angiopathy without gangrene, E78.5 - Hyperlipidemia, unspecified, Z79.4 - tank terminal gauger (current) use of insulin AMB Glucose Monitoring Today E11.9 - Type 2 diabetes mellitus without complications Microalbumin, Random (w Creat) Today E11.51 - Type 2 diabetes mellitus with diabetic peripheral angiopathy without gangrene, Z79.4 - prison (current) use of insulin B Type Natriuretic Peptide Today E11.51 - Type 2 diabetes mellitus with diabetic peripheral angiopathy without gangrene, E11.9 - Type 2 diabetes mellitus without complications, Z79.4 - prison (current) use of insulin Hemoglobin A1c Today E11.51 - Type 2 diabetes mellitus with diabetic peripheral angiopathy without gangrene, E11.9 - Type 2 diabetes mellitus without complications, Z79.4 - tank terminal gauger (current) use of insulin Patient Instructions: Please continue your current medications. Please decrease carbohydrates at snack before bedtime. See list of low carb options. You a1c is down to 7.6% today. We want it under 7%, but per you sensor, the estimated a1c for the past 2 weeks is 6.8% (7% for past 30 days) so I am not increasing your medication at this time. Coding Level of Care Code Est Pt Level 4 (71968) Diagnoses Type 2 diabetes mellitus with diabetic peripheral angiopathy without gangrene, with long-term current use of insulin E11.51; Z79.4 Diabetes mellitus complication detail: with peripheral angiopathy without gangrene Hypoglycemia E16.2 CPT Codes Details - CPT: 91283 - Glucose monitoring, continuous-physician I&R ([id number])
[2024-06-03 13:20] VITALS: BP 110/52; PULSE 102; BMI 26.9
[2024-06-03 13:33] LABS: Glucose, Whole Blood 221 mg/dL (60-115)
[2024-06-03 13:54] VITALS: PULSE 92
--- OUTSIDE RECORDS SUMMARY | 2024-06-03 15:28 | XMS_ITS | Continuity of Care Document ---
Author Organization [facility], , [facility], OFFICE Address [address] [place] [id number] Care Team Providers Care Spool Winder Name Role Phone DAVID MCCARTHY Primary Care Provider [phone] MANUEL ARCE Operations Technician [phone] YONATHAN SEGAL OTHER KASIE TRAYLOR Sales Assistant Displays CRISTÓBAL WARREN OTHER MARQUEZ SLADE Operations Technician JEFF FRANK Sales Compensation Analyst [facility] Straight Ruling Machine Operator BRENDAN DOWD Straight Ruling Machine Operator [phone] Assessment No assessment recorded. Plan of Treatment Reminders Order Date Submit Date Provider Last Modified By Organization Details Last Modified Time Details Appointments LAB Follow-Up 2024 09:30A M [facility] Lab Not available Not available Not available Wellness Visit 30 2024 01:30P M David Mccarthy MD Not available Not available Not available Lab influenza virus A + B + SARS-CoV- 2 (COVID19) Ag panel, rapid IA, upper respirato ry specimen 2023 024 [facility], [address] [place], [address], 05/02/2024 13:00:30 Referral None recorded. Procedures None recorded. Surgeries None recorded. Imaging None recorded. Medication Orders azithromy milka 250 mg tablet 2023 024 [facility] [id number] ([facility]), [address] [place], [place], [id number], 05/02/2024 12:35:28 Patient TargetsNo targets recorded. Patient Instructions Encounter Date Encounter Id Patient Instructions Last Modified By Organization Details Last Modified Time 05/02/2024 [id number] After a discussi on of treatment options, which included consideration of best practices and patient preferences, the??above treatment plan and objectives were adopted New medication was discussed with patient including risks, benefits ,possible and expected side effects. Patient understands and is willing to begin medication as prescribed. [email or web address] Not available 05/04/2024 21:22:38 Reason for Referral None Reported. Problems Name Problem SNOMED Code Status Onset Date Resolution Date Notes Provider Name and Address Organization Details Recorded Time Uncontro lled type 2 diabetes mellitus 864047016 Completed 08/12/2015 Astrid Curry PA-C [address] [place] [address], [phone] , [facility] 13:39:46 Nonexuda tive age-rela laura macular degenera tion [id number] Completed 07/26/2016 David Mccarthy MD [address] [place] [address], [phone] , [facility] 12:24:30 Cortical senile cataract 19815595 Completed 07/26/2016 David Mccarthy MD [address] [place] [address], [phone] , [facility] 12:24:45 Nuclear senile cataract 904766296 Completed 07/26/2016 David Mccarthy MD [address] [place] [address], [phone] , [facility] 12:24:18 Regular astigmat ism 14693154 Completed 07/26/2016 David Mccarthy MD [address] [place] [address], [address] , [facility] 12:24:41 Diabetes mellitus 11797653 Active Not Available [facility] 3 11:38:49 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 42960680 Active 2x microalb umin ratio >30; renal Not Available [facility] 3 11:38:49 Chronic obstruct cindi pulmonar y disease 04025165 Active 2016 Not Available [facility] 3 11:38:49 Polyp of colon 98400776 Active 2017 adenomat ous, last found 2015 Not Available [facility] 3 11:38:49 Chronic alcoholi sm in formerly [facility] n 312393377 Active 2019 coded 05/12/19 Followup Not Available [facility] 3 11:38:49 Microalb uminuria 723095630 Active 2020 LABS 1 ACR 36.7 Not Available [facility] 3 11:38:49 Ocular hyperten panfilo 7581670 Active 2021 Not Available [facility] 3 11:38:49 Angina pectoris 077692883 Active 2022 Not Available [facility] 3 11:38:49 Hypoglyc emia 399960720 Active 2023 [facility] 10:51:59 Uncontro lled type 2 diabetes mellitus 358442735 Active 2023 Astrid Curry PA-C [address] [place] [address], [address] , [facility] 13:39:46 Ocular hyperten panfilo 3906098 Completed 200707/26/2016 David Mccarthy MD [address] [place] [address], [address] , [facility] 12:24:34 Mixed hyperlip idemia 043714502 Completed 200605/05/2011 David Mccarthy MD [address] [place] [address], [address] , [facility] 12:03:06 Adult health examinat ion Completed 05/05/2011 David Mccarthy MD [address] [place] [address], [phone] , [facility] 12:03:06 Impotenc e of organic origin Completed 07/26/2016 David Mccarthy MD [address] [place] [address], [address] , [facility] 12:24:21 Degenera tive drusen Completed 200707/26/2016 David Mccarthy MD [address] [place] [address], [address] , [facility] 12:24:52 Presbyop ia 87207263 Completed 200707/26/2016 David Mccarthy MD [address] [place] [address], [address] , [facility] 12:24:28 Benign essentia l hyperten panfilo 8471121 Active 2006 Not Available [facility] 3 11:38:49 Astigmat ism 33465476 Completed 200707/26/2016 David Mccarthy MD [address] [place] [address], [address] , [facility] 12:24:48 Myopia 38612279 Completed 200807/26/2016 David Mccarthy MD [address] [place] [address], [address] , [facility] 12:24:37 Tobacco user 328064290 Active 2007 quit late r 2010 Not Available [facility] 3 11:38:48 Peripher al vascular disease 823386124 Active 2009 abnormal AMELIA Not Available [facility] 3 11:38:49 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 433479489 Completed 200707/26/2016 David Mccarthy MD [address] [place] [address], [address] , [facility] 12:24:24 Type 2 diabetes mellitus without complica tion 920733447 Completed 200608/12/2015 David Mccarthy MD [address] [place] [address], [address] , [facility] 12:03:06 Hyperkal emia 07360354 Completed 200805/05/2011 Dvaid Mccarthy MD [address] [place] [address], [address] , [facility] 12:03:06 Acute maxillar y sinusiti s 20194946 Completed 200705/05/2011 David Mccarthy MD [address] [place] [address], [address] , [facility] 12:03:06 Uncontro lled type 2 diabetes mellitus 983889074 Completed 200705/05/2011 Astrid Curry PA-C [address] [place] [address], [address] , [facility] 13:39:46 Hyperlip idemia 47508160 Active 2006 Not Available [facility] 3 11:38:49 Problem Notes None recorded. Procedures Surgical History Date Name Laterality Status Provider Name and Address Organization Details Recorded Time 01/14/20 24 Post hospital/SNF follow-up/Transit ional Care completed May Mcdaniels [facility] 01/14/2024 11:30:21 11/26/19 24 Oxygen - Order completed Dori Negrete LPN [facility] 11/26/2023 13:12:41 11/26/19 24 Oxygen Administration completed Dori Negrete LPN [facility] 11/26/2023 12:57:13 07/14/19 22 Medicare Visit Tracking DM completed Sindy Walter RN, BSN, [address], [address], [facility] 07/14/2021 11:00:03 04/07/20 21 Medicare Visit Tracking DM completed Sindy Walter RN, BSN, [address], [address], [facility] 04/07/2021 09:53:16 03/09/20 21 Mini Mental Exam completed David Mccarthy MD [address] [place] [address], [address], [facility] 03/09/2021 11:08:56 12/08/19 21 Medicare Wellness Visit completed Maria Ines Anderson MA [facility] 12/07/2020 08:26:37 12/08/19 21 prevention-cardio vascular risk reduction counseling completed Maria Ines Anderson MA [facility] 12/07/2020 08:26:37 12/08/19 21 prevention-annual alcohol misuse screening completed Maria Ines Anderson MA [facility] 12/07/2020 08:26:37 09/09/19 21 Medicare Visit Tracking DM completed Sindy Walter RN, BSN, [address], [address], [facility] 09/08/2020 11:56:49 09/03/19 21 Oxygen - Order completed Annie Gaston LPN [facility] 09/02/2020 16:26:17 08/11/19 21 COPD Screening completed David Mccarthy MD [address] [place] [address], [address], [facility] 08/10/2020 11:02:03 07/07/19 21 Medicare Visit Tracking DM completed Sindy Walter RN, BSN, [address], [address], [facility] 07/07/2020 12:26:43 05/03/20 20 Medicare Visit Tracking DM completed Sindy Walter RN, BSN, [address], [address], [facility] 05/03/2020 12:26:41 01/21/20 20 Medicare Visit Tracking [place] completed Sindy Walter RN, BSN, [address], [address], [facility] 01/21/2020 11:54:13 11/26/19 20 Medicare Wellness Visit completed Jill Bernstein MA [facility] 11/26/2019 10:26:32 11/26/19 20 COPD Screening completed Jill Bernstein MA [facility] 11/26/2019 10:40:44 11/26/19 20 prevention-cardio vascular risk reduction counseling completed Jill Bernstein MA [facility] 11/26/2019 10:26:32 11/26/19 20 prevention-annual alcohol misuse screening completed Jill Bernstein MA [facility] 11/26/2019 10:26:32 07/22/19 20 Medicare Visit Tracking [place] completed Sindy Walter RN, BSN, [address], [address], [facility] 07/22/2019 12:19:47 11/21/19 19 Smoking cessation counseling completed [facility] 11/20/2018 09:27:31 11/21/19 19 Medicare Wellness Visit completed [facility] 11/20/2018 09:25:47 11/21/19 19 Carbon Monoxide Testing completed [facility] 11/20/2018 09:27:31 11/21/19 19 Asthma Control Test (12 + years old) completed [facility] 11/20/2018 09:26:11 05/16/20 18 Smoking cessation counseling completed Maria Ines Anderson MA [facility] 05/16/2018 10:42:29 05/16/20 18 Carbon Monoxide Testing completed Maria Ines Anderson MA [facility] 05/16/2018 10:42:30 05/16/20 18 Diabetic Retinal Exam completed Annie Gaston LPN [facility] 05/16/2018 11:32:57 11/14/19 18 Smoking cessation counseling completed Maria Ines Anderson MA [facility] 11/13/2017 15:35:56 11/14/19 18 Carbon Monoxide Testing completed Maria Ines Anderson MA [facility] 11/13/2017 15:35:56 12/07/19 17 Fundus Photography completed Zoie Arce OD [address] [place], [address], [facility] 12/12/2016 16:38:47 06/13/19 17 POC Flu Testing completed TRESA Guillen [facility] 06/13/2016 16:41:08 06/13/19 17 Nebulizer Tx completed Kinga Hernandez NP [address] [place], [address], [facility] 06/14/2016 20:34:53 03/29/20 16 Fundus Photography completed Zoie Arce OD [address] [place], [address], [facility] 03/29/2016 15:54:33 03/29/20 16 Refraction completed Kathryn Moser [facility] 03/29/2016 10:27:29 09/09/19 16 Holter Monitor Application completed Destini Alaniz LPN [facility] 09/09/2015 12:02:35 07/29/19 16 Insulin Teaching completed Nusrat Rose RN [facility] 07/29/2015 12:05:55 02/17/20 15 Refraction completed Shannan Little MA [facility] 02/16/2015 11:31:28 Imaging Results None recorded. Procedure Notes None recorded. Medical Equipment None Reported. Allergies Allergen ID Allergen Name Allergen Category Reaction Reaction Severity Criticality Documentation Date Start Date Code Code System Note Provider Name and Address Organization Details Recorded Time [id number] prednison e medicatio n other severe Not available 08/28/2016 8640 RxNorm Incre ases blood Sugar level s and possi ble eye press ure. LUIS ANGEL Hoang, [facility] 7 11:49:03 Medications Name Sig Start Date Stop Date Status Note LastModified by Organization Details LastModified Time moexipril hcl 15 mg tabs 08/10 completed Not Available Not Available Not Available shingrix 50 mcg/0.5ml susr 05/12 completed Not Available Not Available Not Available hydrochlo rot tab 25mg active Not Available Not Available Not Available metformin hydrochlo ride 850 mg tabs 05/12 completed Not Available Not Available Not Available cefuroxim e axetil 500 mg tabs 05/12 completed Not Available Not Available Not Available afluria pf .5 ml tiffanie active Not Available Not Available Not Available metformin hcl 850 mg tabs 05/16 completed Not Available Not Available Not Available amlodipin e besylate 5 mg tabs 05/12 completed Not Available Not Available Not Available cefadroxi l 500 mg caps 05/12 completed Not Available Not Available Not Available oxycodone /acetamin ophen 5-325 mg tabs 04/10 completed Not Available Not Available Not Available pravastat in sodium 20 mg tabs 05/12 completed Not Available Not Available Not Available lantus solostar 100 unit/ml sopn 05/12 completed Not Available Not Available Not Available moexipril tab 7.5mg active Not Available Not Available No t Available glipizide 10 mg tabs active Not Available Not Available Not Available hydrochlo rothiazid e 25 mg tabs 05/12 completed Not Available Not Available Not Available atorvasta tin calcium 20 mg tabs 11/20 completed Not Available Not Available Not Available glipizide tab 10mg active Not Available Not Available Not Available flovent hfa 220 mcg/act aero 05/12 completed Not Available Not Available Not Available humalog kwikpen 100 unit/ml sopn 05/12 completed Not Available Not Available Not Available afluria inj pf 13-14 active Not Available Not Available Not Available hydrochlo rot cap 12.5mg active Not Available Not Available Not Available viagra 100 mg tabs active Not Available Not Available Not Available viagra tab 100mg active Not Available Not Available No t Available moexipril tab 15mg active Not Available Not Available Not Available azithromy milka 250 mg tabs 05/12 completed Not Available Not Available Not Available metformin tab 850mg active Not Available Not Available No t Available chlorthal idone 25 mg tabs 05/16 completed Not Available Not Available Not Available proair hfa 108 (90 base) mcg/act aers 05/12 completed Not Available Not Available Not Available atorvasta tin tab 20mg active Not Available Not Available Not Available latanopro st 0.005 % eye drops INSTILL 1 DROP IN BOTH EYES AT BEDTIME 01/06 completed not current 11/26/23 DS2023- not taking, per pt TR/RMA Not Available Not Available Not Available atorvasta tin 40 mg tablet TAKE 1 TABLET BY MOUTH AT BEDTIME active Not Available Not Available No t Available doxycycli ne hyclate 100 mg capsule TAKE 1 CAPSULE BY MOUTH TWICE DAILY FOR 10 DAYS 09/02 completed Not Available Not Available Not Available atorvasta tin 20 mg tablet take 1 tablet by mouth once daily 05/12 completed Not Available Not Available Not Available albuterol sulfate 2.5 mg/3 mL (0.083 %) solution for nebulizat ion Inhale 3 mL 3 times a day by nebuliza tion route. 01/13 completed per pulmonol ogy note 01/02/22 not current 11/26/23 DS Not Available Not Available Not Available moexipril 7.5 mg tablet TAKE 1 TABLET BY MOUTH DAILY 2011 active Not Available Not Available Not Avai lable azithromy milka 250 mg tablet TAKE 2 TABLETS (500 MG) BY ORAL ROUTE ONCE DAILY FOR 1 DAY THEN 1 TABLET (250 MG) BY ORAL ROUTE ONCE DAILY FOR 4 DAYS active Not Available Not Available No t Available acetazola mide ER 500 mg capsule,e xtended release 08/01 completed Not Available Not Available Not Available FreeStyle Lancets 28 gauge USE TO TEST BLOOD SUGAR TWICE DAILY 02/13 completed Not Available Not Available Not Available glipizide 10 mg tablet TAKE 1 TABLET BY MOUTH TWICE DAILY 08/01 completed no longer on Not Available Not Available Not Available prednison e 20 mg tablet 2 tablets for 3 d, then 1 tab for 3 d , then one half tablet for 4 days. 01/06 completed not taking, finished . Not Available Not Available Not Available metformin 850 mg tablet TAKE 1 TABLET BY MOUTH THREE TIMES DAILY active Not Available Not Available No t Available cyanocoba micheal (vit B-12) 1,000 mcg tablet TAKE 1 TABLET BY MOUTH DAILY active Not Available Not Available No t Available clopidogr el 75 mg tablet TAKE 1 TABLET BY MOUTH DAILY 01/13 completed not current 11/26/23 DS2023- Not taking, per pt TR/RMA Not Available Not Available Not Available chlorthal idone 25 mg tablet take 1 tablet by mouth once daily 05/16 completed Not Available Not Available Not Available Aspir-Low 81 mg tablet,de layed release Take 1 tablet every day by oral route as directed . 2015 active Not Available Not Available Not Avai lable amlodipin e 5 mg tablet TAKE 1 TABLET BY MOUTH ONCE DAILY. 12/07 completed taking 10mg daily 08/17/20 sa Not Available Not Available Not Available chlorthal idone 50 mg tablet TAKE 1 TABLET BY MOUTH EVERY DAY active Not Available Not Available No t Available sildenafi l 100 mg tablet take 1 tablet by mouth once daily if needed 11/27 completed not current 11/26/23 DS Not Available Not Available Not Available cefadroxi l 500 mg capsule take 1 capsule by mouth twice a day for 5 days TAKE WITH PROBIOTI C 05/12 completed Not Available Not Available Not Available oxycodone -acetamin ophen 5 mg-325 mg tablet take 1 tablet by mouth every 4 hours if needed 04/10 completed Not Available Not Available Not Available prednisol one acetate 1 % eye drops,jami pension 08/01 completed Not Available Not Available Not Available amlodipin e 10 mg tablet TAKE 1 TABLET BY MOUTH EVERY DAY active Not Available Not Available No t Available moexipril 15 mg tablet TAKE 2 TABLETS BY MOUTH EVERY DAY 02/07 completed Not Available Not Available Not Available Guaifenes in AC 10 mg-100 mg/5 mL oral liquid TAKE 5-10 MILLILIT ERS (1-2 TEASPOON SFUL) BY MOUTH AT BEDTIME NEEDED FOR COUGH 08/01 completed no longer on Not Available Not Available Not Available glucose 4 gram chewable tablet CHEW AND SWALLOW 4 TABLETS BY MOUTH EVERY 15 MINUTES NEEDED FOR HYPOGLYC EMIA UNTIL SYMPTOMS OF LOW BLOOD SUGAR ARE CONTROLL ED active Not Available Not Available No t Available hydrochlo rothiazid e 12.5 mg capsule TAKE 1 CAPSULE BY MOUTH DAILY active Not Available Not Available No t Available dorzolami de 22.3 mg-timolo l 6.8 mg/mL eye drops INSTILL 1 DROP IN BOTH EYES TWICE DAILY active Not Available Not Available No t Available bisacodyl 5 mg tablet,de layed release TAKE 4 TABLET BY MOUTH ONCE ON DAY BEFORE PROCEDUR E 12/27 completed Not Available Not Available Not Available Accu-Chek Compact Test strips test daily as directed 2010 active Not Available Not Available Not Avai lable pravastat in 20 mg tablet TAKE 1 TABLET BY MOUTH EVERY DAY 10/10 completed pt not taking 07/10/22 Not Available Not Available Not Available hydrochlo rothiazid e 25 mg tablet TAKE 1 TABLET BY MOUTH ONCE DAILY. 09/02 completed Not Available Not Available Not Available cefuroxim e axetil 500 mg tablet take 1 tablet by mouth twice a day 08/10 completed Not Available Not Available Not Available albuterol sulfate HFA 90 mcg/actua tion aerosol inhaler INHALE 2 PUFFS INTO THE LUNGS EVERY 4 HOURS active Not Available Not Available No t Available lisinopri l 40 mg tablet TAKE 1 TABLET BY MOUTH EVERY DAY 2024 active Not Available Not Available Not Avai lable glipizide 5 mg tablet TAKE 1.5 TABLETS BY MOUTH DAILY active Not Available Not Available No t Available hydroxyzi ne pamoate 25 mg capsule take 1 capsule by mouth four times a day if needed 08/10 completed Not Available Not Available Not Available amoxicill in-potass ium clavulana te 1,000 mg-62.5 mg tablet,ex t.rel 12hr take 2 tablets by mouth twice a day for 7 days active Not Available Not Available No t Available Crestor 10 mg tablet take 1 tablet by mouth once daily 2010 active Not Available Not Available Not Avai lable Spiriva with HandiHale r 18 mcg and inhalatio n capsules Inhale 1 capsule every day by inhalati on route for 30 days. 12/06 completed Not Available Not Available Not Available OneTouch UltraSoft Lancets test BID as directed 2010 active Not Available Not Available Not Avai lable Flovent HFA 110 mcg/actua tion aerosol inhaler Inhale 2 puffs twice a day by inhalati on route. 09/20 completed Not Available Not Available Not Available Flovent HFA 220 mcg/actua tion aerosol inhaler INHALE 2 PUFFS BY MOUTH TWICE DAILY 12/07 completed Not Available Not Available Not Available BD Ultra-Fin e Short Pen Needle 31 gauge x 10/10 use to inject INSULIN four times a day 12/27 completed Not Available Not Available Not Available Zostavax (PF) 19,400 unit/0.65 mL subcutane ous suspensio n inject contents of 1 vial subcutan eously active Not Available Not Available No t Available Chantix Starting Month Kian 0.5 mg (11)-1 mg (42) tablets in dose pack 2007 active Take 1.00 tabs as directed Not Available Not Available Not Available peg 3350-elec trolytes 236 gram-22.7 4 gram-6.74 gram-5.86 gram solution MIX AND DRINK DIRECTED 12/27 completed Not Available Not Available Not Available FreeStyle Lite Meter kit use as directed 02/13 completed Not Available Not Available Not Available FreeStyle Lite Strips USE TO TEST BLOOD SUGAR THREE TIMES DAILY 02/13 completed Not Available Not Available Not Available Chantix Continuin g Month Kian 1 mg tablet 2007 active Take 1.00 tabs twice daily Not Available Not Available Not Available Lantus Solostar U-100 Insulin 100 unit/mL (3 mL) subcutane ous pen ADMINIST ER 16 UNITS UNDER THE SKIN EVERY DAY active Not Available Not Available No t Available Humalog KwikPen (U-100) Insulin 100 unit/mL subcutane ous ADMINIST ER 8 UNITS UNDER THE SKIN THREE TIMES DAILY BEFORE MEALS active Not Available Not Available No t Available Combivent Respimat 20 mcg-100 mcg/actua tion solution for inhalatio n INHALE 1 PUFF BY MOUTH FOUR TIMES DAILY 08/13 completed Not Available Not Available Not Available Afluria 7127-4027 (PF) 45 mcg (15 mcg x 3)/0.5 mL intramusc ular syringe inject 0.5 millilit er intramus cularly active Not Available Not Available No t Available Fluvirin [id number] (PF) 45 mcg (15 mcg x3)/0.5 mL intramusc ular syringe inject 0.5 millilit er intramus cularly active Not Available Not Available No t Available Afluria (PF) 45 mcg (15 mcg x 3)/0.5 mL IM syringe inject 0.5 millilit er intramus cularly active Not Available Not Available No t Available Tresiba FlexTouch U-100 insulin 100 unit/mL (3 mL) subcutane ous pen INJECT 16 UNITS UNDER THE SKIN EVERY NIGHT AT BEDTIME active Not Available Not Available No t Available Afluria (PF) 45 mcg(15 mcg x 3)/0.5 mL intramusc ular syringe inject 0.5 millilit er intramus cularly 08/28 completed Not Available Not Available Not Available Afluria (PF) 45 mcg(15 mcg x 3)/0.5 mL intramusc ular syringe inject 0.5 millilit er intramus cularly 08/01 completed Not Available Not Available Not Available Shingrix (PF) 50 mcg/0.5 mL intramusc ular suspensio n, kit inject 0.5 millilit er intramus cularly 08/10 completed Not Available Not Available Not Available Fluzone High-Dose [id number] (PF) 180 mcg/0.5 mL intramusc ular syringe inject 0.5 millilit er intramus cularly 05/16 completed done at [facility] 02/12 Not Available Not Available Not Available Rocklatan 0.02 %-0.005 % eye drops INSTILL 1 DROP IN BOTH EYES DAILY 11/27 completed not current 11/26/23 DS Not Available Not Available Not Available BD Chrissie 2nd Gen Pen Needle 32 gauge x USE TO INJECT INSULIN FOUR TIMES DAILY active Not Available Not Available No t Available Fluad 65yr up(PF)45 mcg(15 mcgx3)/0. 5 mL intramusc ular syringe inject 0.5 millilit ers intramus cularly 05/12 completed Not Available Not Available Not Available Baqsimi 3 mg/actuat ion nasal spray active Not Available Not Available Not Available Fluzone High-Dose Quad (PF) 240 mcg/0.7 mL IM syringe ADM 0.7ML IM UTD 04/29 completed Not Available Not Available Not Available Trelegy Ellipta 200 mcg-62.5 mcg-25 mcg powder for inhalatio n INHALE 1 PUFF BY MOUTH INTO THE LUNGS DAILY active Not Available Not Available No t Available Dexcom G7 Submarine Diver USE DAILY TO MONITOR GLUCOSE active Not Available Not Available No t Available Dexcom G7 Sensor device USE DIRECTED CHANGE EVERY 10 DAYS 2023 active Not Available Not Available Not Avai lable Vitals Date Recorded Body height Body mass index (BMI) Body weight Heart rate Oxygen saturation Oxygen saturation in Arterial blood by Pulse oximetry Respiratory rate Body temperature Systolic blood pressure Diastolic blood pressure Provider Name and Address Organization Details Last Updated DateTime 4 162.56 cm 27.5 kg/m2 52946.7 8 g 96 /min 96 % 96 % 12 /min 98.5 [degF] 148 mm[Hg] 46 mm[Hg] Josy Perez [facility] 12:16:44 Date Recorded Systolic blood pressure Diastolic blood pressure Provider Name and Address Organization Details Last Updated DateTime 05/02/2024 134 mm[Hg] 50 mm[Hg] Yusra Spring NP [address] [place] [address], [phone], [facility] 05/02/2024 12:35:10 Social History Question Answer Notes LastModified by Organization Details LastModified Time Tobacco Smoking Status Former Smoker QUIT 02/21/2011 Not Available [facility] 10/20/2010 02:08:23 Do You Have An Advance Directive? Yes Eneida Mccord () [email or web address] Information not available 03/23/2009 What Is Your Level Of Alcohol Consumption? None [email or web address] Information not available 07/31/2013 Do You Wear A Helmet When Biking? Yes Information not available 11/01/2015 What Is Your Level Of Caffeine Consumption? None 2-3 Cups Per Day (decaf) Information not available 11/01/2015 How Much Tobacco Do You Chew? None Information not available 11/01/2015 Are You Currently Employed? No [email or web address] Information not available 01/14/2024 What Type Of Diet Are You Following? REGULAR Information not available 11/01/2015 Which Illicit Or Recreational Drugs Have You Used? Marijuana (edibles) Information not available 08/11/2019 Do You Or Have You Ever Used E-cigarettes Or Vape? 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 No [email or web address] Information not available 01/14/2024 When Did You Quit Smoking? 1-5yearssince kg lowery1 Information not available 02/04/2015 How Many Days In The Past Year Have You Had A Heavy Drinking Consumption (4+ Female, 5+ Male)? 0 Information not available 07/31/2013 Are There Any Guns Present In Your Home? Yes Locked In Gun Cabinet With Trigger Locks Information not available 11/01/2015 Do You Use Insect Repellent Routinely? Yes [email or web address] Information not available 01/14/2024 Live Alone Or With Others? With Others liu Information not available 03/26/2009 Does The Patient Have Difficulty Speaking Jamaican? No Information not available 05/05/2011 Does The Patient Have Difficulty Reading Jamaican? No Information not available 05/05/2011 Patient Has Health Care Proxy Signed And In Chart Yes [email or web address] Information not available 04/10/2018 CCM Consent Discussion 05/16/2018 Information not available 05/16/2018 Marital Status Information not available 04/13/2011 Mosquito Repellent Used Routinely No Information not available 11/01/2015 What Was The Date Of Your Most Recent Tobacco Screening? 05/02/2024 [email or web address] Information not available 05/02/2024 How Many Children Do You Have? 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 30ormorepacky ears [email or web address] Information not available 02/04/2015 Do You Use Your Seat Belt Or Car Seat Routinely? Yes [email or web address] Information not available 01/14/2024 Seat Belts Used Routinely Yes Information not available 05/05/2011 Are You Sexually Active? Yes Information not available 05/05/2011 Smoke Alarm In Home Yes Information not available 05/05/2011 Do You Have Smoke And Carbon Monoxide Detectors In Your Home? Yes [email or web address] Information not available 01/14/2024 At What Age Did You Start Smoking Tobacco? 18 1-2 PPD; 58 PY History Information not available 05/05/2011 Are You Passively Exposed To Smoke? No [email or web address] Information not available 01/14/2024 Do You Or Have You Ever Used Smokeless Tobacco? Never Used Smokeless Tobacco Information not available 05/12/2019 How Much Tobacco Do You Smoke? No 1.5 PPD - Smoked For 35 Yrs [email or web address] Information not available 11/28/2023 What Types Of Sporting Activities Do You Participate In? None Information not available 11/01/2015 General Stress Level Low Information not available 05/05/2011 Do You Use Sunscreen Routinely? Yes Information not available 11/01/2015 Sex: Male Functional Status Question Answer Note LastModified by Organization D etails LastModified Time What is your exercise level? None [email or web address] Information not available 01/14/2024 Mental Status None recorded. Family History Relationship Description Onset Age of this Age Resolved Age Notes LastModified by Organization Details LastModified Time Brother Diabetes mellitus previo usly record ed as Diabet es skillip Not available 11/01/2015 12:07:34 Brother Hypertensive disorder previo usly record ed as Hypert ension skillip Not available 11/01/2015 12:07:34 Brother Hyperlipidem ia skillip Not available 2015 12:07:34 Sister Hypertensive disorder previo usly record ed as Hypert ension skillip Not available 11/01/2015 12:07:34 Sister Hyperlipidem ia skillip Not available 2015 12:07:34 Sister Diabetes mellitus previo usly record ed as Diabet es skillip Not available 11/01/2015 12:07:34 Brother Alcoholism 54 skillip Not availab le 11/01/2015 12:07:34 Notes:no early CAD; no breas t, colon or prostate cancer 3 brothers 2 sisters originally Medical History Condition Response Diabetes Type II Y Hyperlipidemia Y Peripheral Vascular Disease Y Hypertension Y Colon Polyps Y Immunizations Vaccine Type Date Status Note Provider Nam e and Address Organization Details Recorded Time pneumococcal polysaccharide PPV23 9 completed Not Available [facility] 06/14/2019 02:39:37 Tdap 8 completed Not Available [facility] 09/08/2021 15:43:01 influenza, unspecified formulation 8 completed Not Available [facility] 09/08/2021 15:43:01 Influenza, split virus, trivalent, preservative 2 completed Not Available [facility] 06/14/2019 02:18:34 Influenza, split virus, trivalent, preservative 9 completed Not Available [facility] 06/14/2019 02:17:26 Influenza, split virus, trivalent, preservative 1 completed Not Available [facility] 09/08/2021 15:43:01 Pneumococcal conjugate PCV 13 5 completed Not Available [facility] 06/14/2019 02:28:12 influenza, unspecified formulation 3 completed Not Available [facility] 09/08/2021 15:43:01 zoster live 4 completed Not Available [facility] 09/08/2021 15:43:01 influenza, unspecified formulation 4 completed Not Available [facility] 09/08/2021 15:43:01 Td (adult), 2 Lf tetanus toxoid, preservative free, adsorbed 8 completed Not Available [facility] 06/14/2019 02:22:32 influenza, unspecified formulation 5 completed Not Available [facility] 09/08/2021 15:43:01 influenza, unspecified formulation 6 completed Not Available [facility] 09/08/[facility] 15:43:01 Influenza, split virus, quadrivalent, preservative 7 completed Not Available [facility] 09/08/2021 15:43:01 Influenza, split virus, quadrivalent, preservative 9 completed Not Available [facility] 09/08/2021 15:43:02 zoster recombinant 9 completed Not Available [facility] 09/08/2021 15:43:01 zoster, unspecified formulation 0 completed Not Available [facility] 09/08/2021 15:43:01 Influenza, high-dose, quadrivalent, PF 1 completed LUIS ANGEL Arreola, [facility] 03/09/2021 10:51:11 pneumococcal polysaccharide PPV23 2 [facility] 09:43:08 Influenza, high-dose, quadrivalent, PF 0 completed Not Available [facility] 09/08/2021 15:43:01 COVID-19, mRNA, LNP-S, PF, 30 mcg/0.3 mL dose 1 completed Not Available [facility] 09/08/2021 15:43:01 Influenza, high-dose, quadrivalent, PF 2 completed Kelli Jung null, [facility] 03/29/2022 10:54:53 COVID-19, mRNA, LNP-S, PF, 30 mcg/0.3 mL dose 1 completed Not Available [facility] 09/08/2021 15:43:01 Influenza, split virus, trivalent, preservative 0 completed Not Available [facility] 06/14/2019 02:17:49 COVID-19, mRNA, LNP-S, PF, 30 mcg/0.3 mL dose 1 completed Not Available [facility] 09/08/2021 15:43:01 COVID-19, mRNA, LNP-S, PF, 30 mcg/0.3 mL dose 2 completed Dori Negrete LPN null, [facility] 09/20/2021 11:46:05 COVID-19, mRNA, LNP-S, PF, 30 mcg/0.3 mL dose 2 completed RAINE Campos [facility], [facility] 03/24/2022 14:46:00 Influenza, high-dose, quadrivalent, PF 3 completed Cynthia Rocha MA null, [facility] 05/14/2023 15:21:38 COVID-19, mRNA, LNP-S, PF, 30 mcg/0.3 mL dose 4 completed RAINE Campos, [facility] 03/04/2024 23:47:06 influenza, unspecified formulation 4 completed RAINE Campos, [facility] 03/04/2024 23:47:18 Past Encounters Encounter ID Performer Location Encounter Start Date Encounter Closed Date Diagnosis/Indication Diagnosis SNOMED-CT Code Diagnosis ICD10 Code Diagnosis Note [id number] Yusra Spring NP , [facility], OFFICE [address] [place] [phone] 05/02/2024 11:54:50 05/02/2024 16:35:07 Cough 22884262 R05.9 Patient presents with cough.Like ly secondary to: COPD exacerbati onRapid flu and covid negative todayDiscu ssed supportive measures.s ee plan belowFollo w up if not improving or with worsening symptoms. Acute exac erbation of chronic obstructive pulmonary disease 156884744 J44.1 Likely COPD exacerbati on with increased cough and purulent sputum over the last few weeks. LCTA today and O2 96%. Continue Trelegy for maintenanc e and albuterol as needed. Use at least 3 times a day for the next few days. Will start course of azithromyc in. Follow up if your breathing worsens, you develop a fever, or are not improving in a few days. Health Concerns Section Related Observation LastModified by Organization Detai ls LastModified Time None Recorded Concern Status LastModified by Organization Details LastModified Time None Recorded Payers Encounter Date Sequence Insurance Name Policy Number Policy Traylor Covered Member ID Traylor Member ID Guarantor Name 05/02/2024 1 [place] [employer] Kedar Mccord [id number] Kedar Mccord 05/02/2024 2 [place] [id number] Kedar Mccord [id number] Kedar Mccord Notes Date Note Type Note Provider Name and Address Organization Details Recorded Time 05/02/2024 text/html Cough epReported bypatient.Symptom sno fever;chills;coug h;sputum; no sore throat; no facial pain; no ear pain;sick contacts;history of asthma or COPD; no tobacco use 69yo M presents for a cough for a couple years- worse for 3 weeks- started with URI Sx- runny nose has persisted- worsening brown/green sputum- no sore throat- no ear pain- no fevers- albuterol has helped briefly- continues Trelegy for hx of COPD- quit smoking a long time ago - OTC cold and flu for HTN Yusra Spring NP [address] [place] [address], [phone] [facility] [place] 21:22:57
== END 2024-06-03 14:08 | disposition home or self-care (01) ==
PROVIDERS: PCP Family Medicine; Visit Provider Physician Assistant Medical
DX: E11.51 Type 2 diabetes mellitus with diabetic peripheral angiopathy without gangrene (principal); Z79.4 Long term (current) use of insulin; E16.2 Hypoglycemia, unspecified

== ENCOUNTER → 2024-06-03 13:11 | Outpatient (BNVA) | payer MEDICARE, SELFPAY | PROVIDERS: PCP Family Medicine; Visit Provider Physician Assistant Medical | DX: E11.51 Type 2 diabetes mellitus with diabetic peripheral angiopathy without gangrene (principal); E16.2 Hypoglycemia, unspecified; Z79.4 Long term (current) use of insulin | CPT/HCPCS: 82947; 83036; 99212 ==

== ENCOUNTER 2024-09-02 12:36 | Outpatient (AMB) | payer MEDICARE, SELFPAY ==
--- NOTE | 2024-09-02 12:54 | A.OFFVIS_ITS ---
Vital Signs 09/02/24 12:57 Height 5 ft 4 in Weight 158 lb 15.253 oz BMI 27.3 BP 124/70 Blood Pressure Location Rt brachial Position Sitting Pulse 93 Pulse Source Pulse Oximeter Pulse Oximetry (%) 96 Oxygen Delivery Method Room Air Intake Visit Reasons: Type II diabetes Intake Note: Patient present today to follow up on Type 2 Diabetes Mellitus. Last Diabetic Eye exam: Patient has upcoming appointment, unsure of date. Last Podiatry Visit: Patient states he will be checked at [facility] in a few weeks. Random Glucose: 163 mg/dl HgA1C: DUE, the machine rejected the blood sample, Mary Anne will order blood work. 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 His brother and sister had type 2 diabetes. Patient diagnosed in his 40s with Type II DM. 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 Patient has his biggest meal at dinner which usually has carbohydrates, and he has a snack of crackers and cheese an hour or 2 before bed. Hemoglobin a1c: machime rejected sample. Last hemoglobin a1c 7.6%. June 03, 2024. Current medication regimen: Tresiba 16 units daily, humalog sliding scale before meals, metformin 850 mg 3 times a day. Blood sugar under 150: no humalog Blood sugar 150-199 mg/dL take 2 units Blood sugar 200-249 mg/dL take 4 units Blood sugar 250-299 mg/dL take 8 units Blood sugar 300-349 mg/dL take 10 units Blood sugar 350-399 mg/dL take 12 units Blood sugar >/=400 mg /dL take 15 units Compliance issues: None. Hypoglycemia symptoms: shaky and weak, corrects with juice. Reports 2 episode within the past few months. He had a profound episode of hypoglycemia resulting in seizure and unresponsiveness over the Summer of 2023. Insurance covered Twones. He also has glucose tablets. Hyperglycemia symptoms: none Eye exam: Scheduled Microvascular complications: none Macrovascular complications: CAD, PAD (iliac stents) Hypertension: treated with Lisinopril 40 mg, amlodipine 10 mg daily, chlorthalidone 50 mg daily. Hyperlipidemia: treated with atorvastatin 40 mg daily. ROS: Constitutional: No unexplained weight loss, fever, chills, fatigue or night sweats. Eyes: No vision changes, blurry vision, double vision, eye pain, eye redness, eye discharge. Respiratory: No shortness of breath Cardiovascular: No chest pain, Skin: No rash or open wounds. Endocrine: No cold or heat intolerance. No polyuria or polydipsia. Physical exam: Constitutional: Alert, in no distress. Eyes: Pupils are equal, round and reactive to light. Extraocular muscles intact. Neck: Supple, Full range of motion. No lymphadenopathy. No palpable thyroid masses. Respiratory: Clear to auscultation. Cardiovascular: S1 S2 regular. No murmurs. Right foot: Warm and well perfused. No clubbing, cyanosis or edema. DP pulse 2+. Decreased vibratory sensation. Intact sensation to monofilament. Left foot: Warm and well perfused. No clubbing, cyanosis or edema. DP pulse 2+. Decreased vibratory sensation. Intact sensation to monofilament. [facility] Medical History (Updated 01/29/24 @ 14:34 by SHEREE Pérez) Hypoglycemia Type 2 diabetes mellitus with circulatory disorder, with long-term current use of insulin Carotid stenosis Diabetes Surgical History S/P angiogram of extremity (12/27/22) History of cardiac cath History of CEA (carotid endarterectomy) Family History Father No problems noted. Mother No problems noted. Daughter No problems noted. Son No problems noted. Social History (Reviewed 01/07/25 @ 13:21 by LIZETTE Campo Alcohol intake: former Year quit: 1998 Patient Tobacco Use Status: Former Tobacco user Tobacco use type: Cigarette Years Smoked: 35 +/- Physical Exam Vital Signs: Last Vital Signs Pulse 93 09/02/24 12:57 BP 124/70 09/02/24 12:57 Pulse Ox 96 09/02/24 12:57 Oxygen Delivery Method Room Air 09/02/24 12:57 BMI result Body Mass Index 27.3 Office Procedures Glucose Monitoring Details Details: See [facility] [id number] - Glucose monitoring, continuous-physician I&R Procedure code (CPT) selection complete Results Reviewed Results Reviewed: Laboratory Last Values Glucose (Clinic) 163 mg/dL (60-115) H 09/02/24 13:13 Laboratory Tests 12/27/22 01/11/23 06:22 09:01 Creatinine 1.01 Estim Creat Clear Calc 63.7 Estimated GFR > 60 Triglycerides 79 Cholesterol 132 LDL Cholesterol, Calc 63 HDL Cholesterol 54 Assessment & Plan Assessment & Plan (1) Type 2 diabetes mellitus with circulatory disorder, with long-term current use of insulin: Code(s): E11.59 - Type 2 diabetes mellitus with other circulatory complications; 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 He has glucose tablets at home, and insurance covered Twones. We reviewed treatment of hypoglycemia. Continue Tresiba 16 units daily. Continue metformin 850 mg 3 times daily. He uses a sliding scale for Humalog. Patient declined to recheck fingerstick A1c because he has to go to the lab anyways for blood work. I will follow up with him on the phone to review his treatment plan based on results. We discussed decreasing carbs and sugars in the evening. We discussed SGLT2 and GLP 1 medications given his history of cardiovascular disease. We discussed addition of these medications may further decrease his insulin requirement, but he is hesitant to make changes to his medication. Follow up in 3 months for type 2 diabetes. Orders: Orders Comprehensive Met. 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 (current) use of insulin Vitamin B12 Today E11.51 - Type 2 diabetes mellitus with diabetic peripheral angiopathy without gangrene, Z79.4 - 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 (current) use of insulin, Z91.89 - Other specified personal risk factors, not elsewhere classified Hemoglobin A1c Today E11.9 - Type 2 diabetes mellitus without complications AMB Glucose Monitoring Today E11.9 - Type 2 diabetes mellitus without compli cations Coding Level of Care Code Est Pt Level 4 (65749) Diagnoses Type 2 diabetes mellitus with diabetic peripheral angiopathy without gangrene, with long-term current use of insulin E11.51; Z79.4 Diabetes mellitus complication detail: with peripheral angiopathy without gangrene Hypoglycemia E16.2 CPT Codes Details - CPT: 40745 - Glucose monitoring, continuous-physician I&R ([id number])
[2024-09-02 12:57] VITALS: BP 124/70; PULSE 93; O2SAT 96; BMI 27.3
[2024-09-02 13:18] LABS: Glucose, Whole Blood 163 mg/dL (60-115)
== END 2024-09-02 13:37 | disposition home or self-care (01) ==
LOC: HO.ENCR 12:37
PROVIDERS: PCP Family Medicine; Visit Provider Physician Assistant Medical
DX: E11.51 Type 2 diabetes mellitus with diabetic peripheral angiopathy without gangrene (principal); Z79.4 Long term (current) use of insulin; E16.2 Hypoglycemia, unspecified

== ENCOUNTER → 2024-09-02 12:36 | Outpatient (BNVA) | payer MEDICARE, SELFPAY | PROVIDERS: PCP Family Medicine; Visit Provider Physician Assistant Medical | DX: E11.51 Type 2 diabetes mellitus with diabetic peripheral angiopathy without gangrene (principal); E16.2 Hypoglycemia, unspecified; Z79.4 Long term (current) use of insulin | CPT/HCPCS: 82947; 99212 ==

== ENCOUNTER 2024-09-03 10:59 | Outpatient (REF) | payer MEDICARE, SELFPAY ==
[2024-09-03 13:55] LABS: Estimated Average Glucose 157 mg/dL; Hemoglobin A1C 198.3215 umol/L; Hemoglobin A1c % 7.1 % (<6.0); Total Hemoglobin (HGBA1C) 3680.1847 umol/L
[2024-09-03 14:07] LABS: Platelet Count 429 X10*3/uL (160-400)
[2024-09-03 14:27] LABS: Vitamin B12 1206 pg/mL (200-900)
[2024-09-03 14:46] LABS: Alanine Aminotransferase 10 U/L (0-40); Albumin Level 4.7 g/dL (3.5-5.0); Alkaline Phosphatase 95 U/L (39-117); Aspartate Amino Transferase 26 U/L (5-37); Bilirubin Total 0.4 mg/dL (0.0-1.0); Blood Urea Nitrogen 29 mg/dL (9-16); Calcium 10.2 mg/dL (8.4-10.2); Cholesterol 118 mg/dL (<200); Estimated Glomerular Filt Rate > 60; Glucose Random 147 mg/dL (60-115); HDL Cholesterol 51 mg/dL (>40); LDL Cholesterol Calculated 53 mg/dL (<100); Total Protein 7.7 g/dL (6.5-8.0); Triglycerides 72 mg/dL (<150)
[2024-09-03 15:12] LABS: Anion Gap 17 (12-20); Carbon Dioxide 25 mmol/L (22-29); Chloride 105 mmol/L (96-108); Sodium 141 mmol/L (135-145)
== END 2024-09-03 11:00 | disposition home or self-care (01) ==
LOC: HO.10HDL 10:59
PROVIDERS: Visit Provider Physician Assistant Medical
DX: E78.5 Hyperlipidemia, unspecified (principal); Z91.89 Other specified personal risk factors, not elsewhere classified; E11.51 Type 2 diabetes mellitus with diabetic peripheral angiopathy without gangrene; Z79.4 Long term (current) use of insulin
CPT/HCPCS: 36415; 80053; 80061; 82607; 83036; 85049

== ENCOUNTER 2024-09-05 09:14 | Outpatient (REF) | payer MEDICARE, SELFPAY ==
[2024-09-05 11:21] LABS: Anion Gap 14 (12-20); Blood Urea Nitrogen 23 mg/dL (9-16); Calcium 9.2 mg/dL (8.4-10.2); Carbon Dioxide 28 mmol/L (22-29); Chloride 103 mmol/L (96-108); Estimated Glomerular Filt Rate > 60; Glucose Random 115 mg/dL (60-115); Potassium 4.5 mmol/L (3.3-5.1); Sodium 140 mmol/L (135-145)
== END 2024-09-05 09:15 | disposition home or self-care (01) ==
LOC: HO.10HDL 09:14
PROVIDERS: Visit Provider Internal Medicine
DX: E87.5 Hyperkalemia (principal)
CPT/HCPCS: 36415; 80048

== ENCOUNTER 2024-12-02 12:40 | Outpatient (AMB) | payer MEDICARE, SELFPAY ==
--- NOTE | 2024-12-02 12:50 | A.OFFVIS_ITS ---
Vital Signs 12/02/24 12:51 12/02/24 12:58 Height 5 ft 4 in Weight 156 lb 8.451 oz BMI 26.9 BP 134/56 L Blood Pressure Location Rt brachial Position Sitting Pulse 85 Pulse Source Pulse Oximeter Pulse Oximetry (%) 92 94 Oxygen Delivery Method Room Air Room Air Intake Visit Reasons: T2DM Intake Note: Patient present today to follow up on Type 2 Diabetes Mellitus. Last Diabetic Eye exam: 09/2024 Last Podiatry Visit: Patient does not see a Blanket Inspector HgA1C: 7.0%, 12/02/2024 Random Glucose: 198 mg/dL [place] Shearer Operator Required: No Accompanied by: Self / Same As Patient Allergies oxycodone (From Percodan) Adverse Reaction (Intermediate, Verified 12/02/24 13:01) hyperglycemia Seasonal Allergy (Unknown, Uncoded 12/02/24 13:01) Sneezing Medication List - Last Reconciled 12/02/24 by SHEREE Pérez albuterol sulfate 90 mcg/actuation 2 puffs inhalation Q4H PRN amlodipine 10 mg PO DAILY aspirin (Adult Aspirin Regimen) 81 mg PO DAILY atorvastatin 40 mg PO BEDTIME blood sugar diagnostic As directed blood sugar diagnostic (FreeStyle Lite Strips) As directed to check glucose up to 5 times daily blood-glucose meter (FreeStyle Lite Meter kit) as directed to monitor blood glucose blood-glucose sensor (Primeksscom G7 Sensor device) USE DIRECTED, CHANGE SENSOR EVERY 10 DAYS chlorthalidone 50 mg PO DAILY cyanocobalamin (vitamin B-12) 1,000 mcg PO DAILY dorzolamide-timolol 22.3-6.8 mg/mL 1 drp ophthalmic (eye) BID nitgthwnxtz-mnqjhnizq-ihhovkgh 200-62.5-25 mcg (Trelegy Ellipta) 1 inh inhalation DAILY glucagon 3 mg/actuation (Baqsimi) 3 mg intranasal ONCE glucose (Dex4 Glucose Quick Dissolve) 16 grams (4 x 4 gram) PO Q15M PRN insulin admin supplies (InPen (for Humalog) subcutaneous) As directed insulin degludec (Tresiba FlexTouch U-100 insulin) 16 units (0.16 mL) subcut BEDTIME insulin lispro (Humalog KwikPen (U-100) Insulin) 1 sliding scale dose subcut USEASDIRECTD lancets (FreeStyle Lancets) Use as directed to monitor glucose up to 5 times daily lisinopril 40 mg PO DAILY metformin 850 mg PO TID pen needle, diabetic As directed to inject insulin four times daily sildenafil 100 mg PO DAILY PRN sodium polystyrene sulfonate 15 grams PO DAILY 2 days HPI Comments Details: This is a 69-year-old male with a past medical history of CAD, PAD and type 2 diabetes presenting for diabetic management. His brother and sister had type 2 diabetes. Patient diagnosed in his 40s with Type II DM. Reviewed Dexcom dated November 19 to December 02 Average glucose 163 G WA 7.2% 8% very high 24% high 68% in range 0% hypoglycemia He experiences some hyperglycemia in the evening and overnight. Hemoglobin A1c today is 7% down from 7.6%. Current medication regimen: Tresiba 16 units evening, humalog sliding scale before meals, metformin 850 mg 3 times a day. Blood sugar under 150: no humalog Blood sugar 150-199 mg/dL take 2 units Blood sugar 200-249 mg/dL take 4 units Blood sugar 250-299 mg/dL take 8 units Blood sugar 300-349 mg/dL take 10 units Blood sugar 350-399 mg/dL take 12 units Blood sugar >/=400 mg /dL take 14 units Compliance issues: None. Hypoglycemia symptoms: shaky and weak, corrects with juice. He has had only a couple episode within the past few months. He had a profound episode of hypoglycemia resulting in seizure and unresponsiveness over the Summer of 2023. Insurance covered Invaluable. He also has glucose tablets. Hyperglycemia symptoms: none Eye exam: Up-to-date Microvascular complications: none Macrovascular complications: CAD, PAD (iliac stents) Hypertension: treated with Lisinopril 40 mg, amlodipine 10 mg daily, chlorthalidone 50 mg daily. Hyperlipidemia: treated with atorvastatin 40 mg daily. ROS: Constitutional: No unexplained weight loss, fever, chills, fatigue or night sweats. Eyes: No vision changes, blurry vision, double vision, eye pain, eye redness, eye discharge. Respiratory: No shortness of breath Cardiovascular: No chest pain, Skin: No rash or open wounds. Endocrine: No cold or heat intolerance. No polyuria or polydipsia. Physical exam: Constitutional: Alert, in no distress. Eyes: Pupils are equal, round and reactive to light. Extraocular muscles intact. Neck: Supple, Full range of motion. No lymphadenopathy. No palpable thyroid masses. Respiratory: Clear to auscultation. Cardiovascular: S1 S2 regular. No murmurs. [facility] Medical History (Updated 09/03/24 @ 15:55 by Love Snowden MD) Hypoglycemia Type 2 diabetes mellitus with circulatory disorder, with long-term current use o f insulin Carotid stenosis Diabetes Surgical History S/P angiogram of extremity (12/27/22) History of cardiac cath History of CEA (carotid endarterectomy) Family History Father No problems noted. Mother No problems noted. Daughter No problems noted. Son No problems noted. Social History Alcohol intake: former Year quit: 1998 Patient Tobacco Use Status: Former Tobacco user Tobacco use type: Cigarette Years Smoked: 35 +/- Physical Exam Vital Signs: Last Vital Signs Pulse 85 12/02/24 12:51 BP 134/56 L 12/02/24 12:51 Pulse Ox 94 12/02/24 12:58 Oxygen Delivery Method Room Air 12/02/24 12:58 BMI result Body Mass Index 26.9 Results AMB Hemoglobin A1c AMB Hemoglobin A1c 7.0 % Last Edit by TRESA Christian on 12/02/24 13:02 Results Reviewed Results Reviewed: Laboratory Last Values Glucose (Clinic) 198 mg/dL (60-115) H 12/02/24 12:54 Hgb A1c (Clinic) 7.0 % (4.0-6.0) H 12/02/24 13:01 Laboratory Tests 12/27/22 01/11/23 01/29/24 06:22 09:01 13:17 Plt Count Creatinine 1.01 Estimated GFR > 60 Hgb A1c (Clinic) 8.2 H AST ALT Triglycerides 79 Cholesterol 132 LDL Cholesterol, Calc 63 HDL Cholesterol 54 09/03/24 09/05/24 11:05 09:16 Plt Count 429 H Creatinine 0.85 Estimated GFR > 60 Hgb A1c (Clinic) AST 26 ALT 10 Triglycerides 72 Cholesterol 118 LDL Cholesterol, Calc 53 HDL Cholesterol 51 Assessment & Plan Assessment & Plan (1) Type 2 diabetes mellitus with circulatory disorder, with long-term current use of insulin: Code(s): E11.59 - Type 2 diabetes mellitus with other circulatory complications; Z79.4 - half-way (current) use of insulin Category: Medical Qualifiers: Diabetes mellitus complication detail: with peripheral angiopathy without gangrene Qualified Code(s): E11.51 - Type 2 diabetes mellitus with diabetic peripheral angiopathy without gangrene; Z79.4 - half-way (current) use of insulin (2) Hypoglycemia: Code(s): E16.2 - Hypoglycemia, unspecified Category: Medical Plan In summary this is a 69-year-old male with controlled type 2 diabetes basal- bolus insulin regimen and metformin. He has glucose tablets at home, and insurance covered Inval[employer]. We reviewed treatment of hypoglycemia. Current medication regimen: Tresiba 16 units evening, humalog sliding scale before meals, metformin 850 mg 3 times a day. Blood sugar under 150: no humalog Blood sugar 150-199 mg/dL take 2 units Blood sugar 200-249 mg/dL take 4 units Blood sugar 250-299 mg/dL take 8 units Blood sugar 300-349 mg/dL take 10 units Blood sugar 350-399 mg/dL take 12 units Blood sugar >/=400 mg /dL take 14 units We discussed decreasing carbs and sugars in the evening. We discussed SGLT2 and GLP 1 medications given his history of cardiovascular dis ease. We discussed addition of these medications may further decrease his insulin requirement, but he declined changing his medication regimen. Follow up in 3 months for type 2 diabetes. Orders: Orders Lipid Panel 10 Weeks SHEREE Pérez E11.51 - Type 2 diabetes mellitus with diabetic peripheral angiopathy without gangrene, E78.5 - Hyperlipidemia, unspecified, Z79.4 - terminal carman (current) use of insulin Aspartate Amino Transferase 10 Weeks SHEREE Pérez E11.51 - Type 2 diabetes mellitus with diabetic peripheral angiopathy without gangrene, Z79.4 - terminal carman (current) use of insulin Basic Metabolic Panel 09/05/24 Love Snowden MD E87.5 - Hyperkalemia AMB Hemoglobin A1c Today SHEREE Pérez E11.51 - Type 2 diabetes mellitus with diabetic peripheral angiopathy without gangrene, Z79.4 - terminal carman (current) use of insulin Vitamin B12 10 Weeks SHEREE Pérez E11.51 - Type 2 diabetes mellitus with diabetic peripheral angiopathy without gangrene, Z79.4 - half-way (current) use of insulin, Z91.89 - Other specified personal risk factors, not elsewhere classified Alanine Aminotransferase 10 Weeks SHEREE Pérez E11.51 - Type 2 diabetes mellitus with diabetic peripheral angiopathy without gangrene, Z79.4 - terminal carman (current) use of insulin Creatinine 10 Weeks SHEREE Pérez E11.51 - Type 2 diabetes mellitus with diabetic peripheral angiopathy without gangrene, E11.9 - Type 2 diabetes mellitus without complications, Z79.4 - terminal carman (current) use of insulin Hemoglobin A1c 10 Weeks SHEREE Pérez E11.51 - Type 2 diabetes mellitus with diabetic peripheral angiopathy without gangrene, E11.9 - Type 2 diabetes mellitus without complications, Z79.4 - half-way (current) use of insulin AMB Glucose Monitoring Today SHEREE Pérez E11.9 - Type 2 diabetes mellitus without complications Medications: New sodium polystyrene sulfonate for 2 doses 15 grams PO DAILY 30 grams 0RF 2 days Love Snowden MD Refilled blood-glucose sensor (Dexcom G7 Sensor device) USE DIRECTED, CHANGE SENSOR EVERY 10 DAYS 3 ea 11RF SHEREE Pérez glucagon 3 mg/actuation (Baqsimi) 3 mg (one actuation) into a single nostril; if no response, may repeat in 15 minutes using a new intranasal device 3 mg intranasal ONCE 2 ea 5RF hypoglycemia SHEREE Pérez Coding Level of Care Code Est Pt Level 4 (76939) Diagnoses Type 2 diabetes mellitus with diabetic peripheral angiopathy without gangrene, with long-term current use of insulin E11.51; Z79.4 Diabetes mellitus complication detail: with peripheral angiopathy without gangrene Hypoglycemia E16.2
[2024-12-02 12:51] VITALS: BP 134/56; PULSE 85; O2SAT 92; BMI 26.9
[2024-12-02 12:58] VITALS: O2SAT 94
[2024-12-02 12:58] LABS: Glucose, Whole Blood 198 mg/dL (60-115)
== END 2024-12-02 13:37 | disposition home or self-care (01) ==
LOC: HO.ENCR 12:41
PROVIDERS: PCP Family Medicine; Visit Provider Physician Assistant Medical
DX: E11.51 Type 2 diabetes mellitus with diabetic peripheral angiopathy without gangrene (principal); Z79.4 Long term (current) use of insulin; E16.2 Hypoglycemia, unspecified

== ENCOUNTER → 2024-12-02 12:40 | Outpatient (BNVA) | payer MEDICARE, SELFPAY | PROVIDERS: PCP Family Medicine; Visit Provider Physician Assistant Medical | DX: E11.51 Type 2 diabetes mellitus with diabetic peripheral angiopathy without gangrene (principal); Z79.4 Long term (current) use of insulin; E11.59 Type 2 diabetes mellitus with other circulatory complications; I25.10 Atherosclerotic heart disease of native coronary artery without angina pectoris; E16.2 Hypoglycemia, unspecified; Z87.891 Personal history of nicotine dependence; E87.5 Hyperkalemia | CPT/HCPCS: 82947; 83036; 99212 ==

== ENCOUNTER 2024-12-09 09:06 | Outpatient (REF) | payer MEDICARE, SELFPAY ==
--- NOTE | ~2024-12-09 | US_ITS ---
CLINICAL HISTORY: I73.9 - Peripheral vascular disease, unspecified --- Additional Notes or Special Instructions: Iliac stents Abdominal aortic ultrasound Comparison: None Findings: Abdominal aorta normal caliber throughout. Normal gradual distal caliber taper noted. Maximum proximal caliber 2.8 cm. Moderate atherosclerotic plaque noted throughout. Mildly elevated velocities bilateral iliac arteries. Two left iliac stents are in position. One visualized stent is patent. Second stent could not be visualized. Impression: No evidence for aortic aneurysm This document has been electronically signed by: Alfredo Hampton MD on 12/09/2024 21:39:16
--- NOTE | ~2024-12-09 | US_ITS ---
CLINICAL HISTORY: I65.23 - Occlusion and stenosis of bilateral carotid arteries US bilateral carotid duplex Comparison: 01/03/2024 Findings: Waveforms demonstrate normal pattern. Peak systolic velocities: Right CCA: 108 cm/s Right ICA: 90 cm/s ICA/CCA ratio: 0.9 Right ECA: Elevated velocity. Right vertebral artery flow antegrade. Mild plaque noted. Left CCA: 93 cm/s Left ICA: 139 cm/s ICA/CCA ratio: 1.5 Left ECA: Elevated velocity. Left vertebral artery flow antegrade. Mild plaque noted. Probable proximal external carotid stenosis bilaterally. Impression: No significant velocity altering ICA stenosis Bilateral proximal ECA stenosis This document has been electronically signed by: Alfredo Hampton MD on 12/09/2024 21:35:37
== END 2024-12-09 09:07 | disposition home or self-care (01) ==
LOC: HO.US 09:06
PROVIDERS: PCP Family Medicine; Visit Provider Surgery Vascular Surgery
DX: I65.23 Occlusion and stenosis of bilateral carotid arteries (principal); I73.9 Peripheral vascular disease, unspecified
CPT/HCPCS: 76706; 93880

== ENCOUNTER → 2024-12-09 09:09 | Outpatient (BNV) | payer MEDICARE, SELFPAY | PROVIDERS: PCP Family Medicine; Visit Provider Radiology Diagnostic Radiology | DX: I73.9 Peripheral vascular disease, unspecified (principal); I65.23 Occlusion and stenosis of bilateral carotid arteries | CPT/HCPCS: 76706; 93880 ==

== ENCOUNTER 2025-01-14 12:28 | Outpatient (AMB) | payer MEDICARE, SELFPAY ==
--- NOTE | 2025-01-14 12:38 | A.OFFVIS_ITS ---
Vital Signs 01/14/25 12:43 Height 5 ft 4 in Weight 158 lb 11.725 oz BMI 27.2 BP 122/64 Blood Pressure Location Lt brachial Position Sitting Pulse 84 Pulse Source Monitor Intake Visit Reasons: 6 mth f/up endo appt Intake Note: 6 mth f/up Marketing Program Coordinator Required: No Accompanied by: Self / Same As Patient Allergies oxycodone (From Percodan) Adverse Reaction (Intermediate, Verified 12/02/24 13:01) hyperglycemia Seasonal Allergy (Unknown, Uncoded 12/02/24 13:01) Sneezing Medication List - Last Reconciled 01/14/25 by Dejan Gerardo MD albuterol sulfate 90 mcg/actuation 2 puffs inhalation Q4H PRN amlodipine 10 mg PO DAILY aspirin (Adult Aspirin Regimen) 81 mg PO DAILY atorvastatin 40 mg PO BEDTIME blood sugar diagnostic As directed blood sugar diagnostic (FreeStyle Lite Strips) As directed to check glucose up to 5 times daily blood-glucose meter (DealBirdStyle Lite Meter kit) as directed to monitor blood glucose blood-glucose sensor (Peppercorn G7 Sensor device) USE DIRECTED, CHANGE SENSOR EVERY 10 DAYS chlorthalidone 50 mg PO DAILY cyanocobalamin (vitamin B-12) 1,000 mcg PO DAILY dorzolamide-timolol 22.3-6.8 mg/mL 1 drp ophthalmic (eye) BID jwuehxnqpqt-tcvzoxwsd-hnmdmaqx 200-62.5-25 mcg (Trelegy Ellipta) 1 inh inhalation DAILY glucagon 3 mg/actuation (Baqsimi) 3 mg intranasal ONCE glucose (Dex4 Glucose Quick Dissolve) 16 grams (4 x 4 gram) PO Q15M PRN insulin admin supplies (InPen (for Humalog) subcutaneous) As directed insulin degludec (Tresiba FlexTouch U-100 insulin) 16 units (0.16 mL) subcut BEDTIME insulin lispro (Humalog KwikPen (U-100) Insulin) 1 sliding scale dose subcut USEASDIRECTD lancets (FreeStyle Lancets) Use as directed to monitor glucose up to 5 times daily losartan 100 mg PO DAILY metformin 850 mg PO TID pen needle, diabetic As directed to inject insulin four times daily sildenafil 100 mg PO DAILY PRN sodium polystyrene sulfonate 15 grams PO DAILY 2 days HPI Comments Details: 70-year-old gentleman is presenting for follow-up. He previously had cardiac catheterization which showed 40% lad stenosis. He came for follow-up after few years and was complaining of chest discomfort. He was referred for stress testing which showed fixed inferior perfusion defect with differential of diaphragmatic attenuation versus scar. Given ongoing symptoms we decided to bring him back for diagnostic angiography. He underwent diagnostic angiogram from right femoral approach because we could not pass a wire through the right radial artery because it was already occluded. His angiogram did not show any significant change in anatomy to explain symptoms. The fixed inferior defect was thought to be an artifact due to diaphragm. 01/08/23: He is here for follow-up. Blood pressure control is good. He underwent lower extremity PCI by Dr. Lassiter. He is on aspirin Plavix. Denying any chest discomfort or significant shortness of breath. He said he was short of breath before he started exercise recently but with progressive activities dyspnea is improved significantly. I think this was due to deconditioning. 01/07/24: He is here for f/u. He had an episode of hypoglycemia of 23. He was at [facility]. His insulin has been adjusted. No CV symptoms. 01/14/25: He is here for follow-up. He has been seeing endocrinology and overall hypoglycemia has improved significantly. Blood pressure well controlled. Stable from cardiovascular point of view. Chronic dyspnea with no changes recently. [facility] Medical History Hypoglycemia Type 2 diabetes mellitus with circulatory disorder, with long-term current use of insulin Carotid stenosis Diabetes Surgical History S/P angiogram of extremity (12/27/22) History of cardiac cath History of CEA (carotid endarterectomy) Family History Father No problems noted. Mother No problems noted. Daughter No problems noted. Son No problems noted. Social History Alcohol intake: former Year quit: 1998 Patient Tobacco Use Status: Former Tobacco user Tobacco use type: Cigarette Years Smoked: 35 +/- Review of Systems Const Denies chills, Denies fatigue, Denies fever(s), Denies frequent falls, Denies weakness, Denies weight gain and Denies weight loss ENT Denies dizziness Card Denies chest pain, Denies leg edema, Denies lightheadedness, Denies palpitations, Denies dyspnea and Denies dyspnea on exertion Resp Denies cough, Denies dyspnea and Denies dyspnea on exertion GI Denies hematochezia Musc Denies abnormal gait, Denies muscle weakness, Denies numbness, Denies radiating pain into limb and Denies tingling Neuro Denies abnormal gait, Denies dizziness, Denies frequent falls, Denies numbness, Denies tingling and Denies weakness Endo Denies fatigue and Denies palpitations Physical Exam Vital Signs: Last Vital Signs Pulse 84 01/14/25 12:43 BP 122/64 01/14/25 12:43 BMI result Body Mass Index 27.2 GENERAL APPEARANCE: in no acute distress, pleasant. NECK: no carotid bruit, no jugular venous distention. Right carotid endarterectomy scar. SKIN: no suspicious lesions, warm and dry. HEART: no murmurs, regular rate and rhythm. LUNGS: clear to auscultation bilaterally. ABDOMEN: soft, nontender. EXTREMITIES: no edema. PERIPHERAL PULSES: equal. NEUROLOGIC: No gross deficits, AAO X 3 Office Procedures EKG Details: Normal sinus rhythm, normal ECG, QTC 427 milliseconds. [id number]-[id number], Complete Assessment & Plan Assessment & Plan (1) Coronary artery disease: Code(s): I25.10 - Atherosclerotic heart disease of [place] coronary artery without angina pectoris Category: Medical (2) Bilateral carotid artery stenosis: Comment: 02/04/2018- right carotid endarterectomy Code(s): I65.23 - Occlusion and stenosis of bilateral carotid arteries Category: Medical Plan 70-year-old gentleman presenting for follow-up. He has known history of peripheral vascular disease and underwent carotid endarterectomy in the past. He had cardiac catheterization in May 2022 where 40% mid LAD stenosis was noted. He has been medically treated for that. He is taking aspirin and atorvastatin 40 mg daily. Blood pressure control is good. He had hypoglycemic issues in the past but since he has started seeing endocrinology he has not had any significant hypoglycemic event. Thank you for allowing me to participate in the care of your patient. Please feel free to contact me if you have any questions. Coding Level of Care Code Est Pt Level 4 (74239) Diagnoses Coronary artery disease I25.10 Bilateral carotid artery stenosis I65.23 CPT Codes EKG - CPT: 28513-Vqiburbkximgpuijy, Complete ([id number])
[2025-01-14 12:43] VITALS: BP 122/64; PULSE 84; BMI 27.2
--- OUTSIDE RECORDS SUMMARY | 2025-01-14 13:24 | XMS_ITS | Encounter Summary ---
Author Organization [facility] Address [address] [facility] [address] [place] [phone] Phone Care Team Providers Care Fiber Locking Supervisor Name Role Phone Cecilia Irizarry MD, MPH Primary Care Provider + Cecilia Irizarry MD, MPH Primary Care Provider + Encounter Details Date Type Department Care Team (Late Contact Info) Description 10/22/2020 Procedure Pass [facility], Ct Scan - [address] [address] Social History Tobacco Use Types Packs/Day Years Used Date Smoking Tobacco: Former Cigarettes 2 40 1 1 - 2010 Smokeless Tobacco: Never Alcohol Use Standard Drinks/Week Comments Not Currently 0 (1 standard drink = 0.6 oz pur e alcohol) Sex and Gender Information Value Date Recorded Sex Assigned at Not on file Legal Sex Male 9:58 PM EDT Gender Identity Not on file Sexual Orientation Not on file documented as of this encounter Plan of Treatment Upcoming Encounters Date Type Department Care Team (Late Contact Info) Description 03/12/2025 Procedure Pass [facility] Admitting Dept Virtual Department [address] [place] [phone] 03/12/2025 9:30 AM EDT Hospital Encounter [facility] Admitting [facility] Virtual Department [address] [place] [id number] Hu Dobbs MD [address] [place] [phone] 03/12/2025 9:30 AM EDT - 03/12/2025 10:00 AM EDT Surgery [facility] Admitting Dept Virtual Department [address] [place] [address] Hu Dobbs MD [address] [address] [email or web address] COLONOSCOPY Scheduled Procedures Name Priority Associated Diagnoses Date/Ti me COLONOSCOPY History of colonic polyps 03/12/2025 9:30 AM EDT documented as of this encounter Visit Diagnoses Not on filedocumented in this encounter Additional Health Concerns Infection Onset Date Last Indicated Resolved Time CoV-Risk Comment:Per note documentation 2024 2024 9:22 PM EDT documented as of this encounter Care Teams Fiber Locking Supervisor Relationship Specialty Start Date End Date Cecilia Irizarry MD, MPH [address] [place] [address] [email or web address] PCP - General Family Medicine 11/23/17 06/24/23 Cecilia Irizarry MD, MPH [address] [place] [address] [email or web address] PCP - General Family Medicine 06/25/23 documented as of this encounter Additional Source Comments The information contained in this document represents components of the legal health record. It is not the complete legal health record.[facility]
== END 2025-01-14 13:14 | disposition home or self-care (01) ==
LOC: HO.HCS 12:29
PROVIDERS: PCP Family Medicine; Visit Provider Internal Medicine Cardiovascular Disease
DX: I25.10 Atherosclerotic heart disease of native coronary artery without angina pectoris (principal); I65.23 Occlusion and stenosis of bilateral carotid arteries
CPT/HCPCS: 93010; 99214

== ENCOUNTER → 2025-01-14 12:28 | Outpatient (BNVA) | payer MEDICARE, SELFPAY | PROVIDERS: PCP Family Medicine; Visit Provider Internal Medicine Cardiovascular Disease | DX: I25.10 Atherosclerotic heart disease of native coronary artery without angina pectoris (principal); I65.23 Occlusion and stenosis of bilateral carotid arteries | CPT/HCPCS: 93005; 99212 ==

== ENCOUNTER 2025-02-19 11:08 | Outpatient (REF) | payer MEDICARE, SELFPAY ==
[2025-02-19 13:00] LABS: Alanine Aminotransferase 16 U/L (0-40); Aspartate Amino Transferase 24 U/L (5-37); Cholesterol 121 mg/dL (<200); Estimated Glomerular Filt Rate > 60; HDL Cholesterol 49 mg/dL (>40); Triglycerides 54 mg/dL (<150)
[2025-02-19 13:02] LABS: Hemoglobin A1C 202.1338 umol/L; Total Hemoglobin (HGBA1C) 3420.1292 umol/L
[2025-02-19 13:27] LABS: Vitamin B12 1342 pg/mL (200-900)
--- OUTSIDE RECORDS SUMMARY | 2025-02-19 15:43 | XMS_ITS | Encounter Summary ---
Author Organization [facility] Address [address] [facility] [address] [place] [phone] Phone Care Team Providers Care Networker Name Role Phone Cecilia Irizarry MD, MPH Primary Care Provider + Cecilia Irizarry MD, MPH Primary Care Provider + Encounter Details Date Type Department Care Team (Late st Contact Info) Description 10/06/2020 Transcribe Orders [facility] [address] [place] [address] Cecilia Irizarry MD, MPH [address] [place], [place] [phone] [email or web address] Social History Tobacco Use Types Packs/Day Years Used Date Smoking Tobacco: Former Smokeless Tobacco: Never Comments:20 years ago Alcohol Use Standard Drinks/Week Comments Not Currently [...] Pass [facility] Admitting Dept Virtual Department [address] [place] [phone] 03/12/2025 9:30 AM EDT Hospital Encounter [facility] Admitting [facility] Virtual Department [address] [place] [address] Hu Dobbs MD [address] [place] [address] [phone] 03/12/2025 9:30 AM EDT - 03/12/2025 10:00 AM EDT Surgery [facility] Admitting Dept Virtual Department [address] [place] [address] Hu Dobbs MD [address] [phone] COLONOSCOPY Scheduled Procedures Name Priority Associated Diagnoses Date/Ti me COLONOSCOPY History of colonic polyps 03/12/2025 9:30 AM EDT documented as of this encounter Visit Diagnoses Not on filedocumented in this encounter Additional Health Concerns Infection Onset Date Last Indicated Resolved Time CoV-Risk Comment:Per note documentation 2024 2024 9:22 PM EDT documented as of this encounter Care Teams Networker Relationship Specialty Start Date End Date Cecilia Irizarry MD, MPH [address] [place] [address] [email or web address] PCP - General Family Medicine 11/23/17 06/24/23 Cecilia Irizarry MD, MPH [address] [place] [address] [email or web address] PCP - General Family Medicine 06/25/23 documented as of this encounter Additional Source Comments The information contained in this document represents components of the legal health record. It is not the complete legal health record.[facility]
--- OUTSIDE RECORDS SUMMARY | 2025-02-19 15:43 | XMS_ITS | Encounter Summary ---
Author Organization [facility] Address 399 [facility] [address] [place] [address] Phone Care Team Providers Care Ethnic Origins Teacher Name Role Phone Cecilia Irizarry MD, MPH Primary Care Provider + Cecilia Irizarry MD, MPH Primary Care Provider + Encounter Details Date Type Department Care Team (Late Contact Info) Description 05/04/2022 Procedure Pass [facility], Ct Scan - [address] [address] Social History Tobacco Use Types Packs/Day Years Used Date Smoking Tobacco: Former Cigarettes 2 40 1 971 - 2010 Smokeless Tobacco: Never Alcohol Use [...] Pass [facility] Endoscopy Admitting Dept Virtual Department [address] [place] [address] 03/12/2025 9:30 AM EDT Hospital Encounter [facility] Endoscopy Admitting Dept Virtual Department [address] [place] [address] Hu Dobbs MD [address] [place] [address] 03/12/2025 9:30 AM EDT - 03/12/2025 10:00 AM EDT Surgery [facility] Endoscopy Admitting Dept Virtual Department 30 [place] [address] Hu Dobbs MD [address] [address] [email or web address] COLONOSCOPY Scheduled Procedures Name Priority Associated Diagnoses Date/Ti me COLONOSCOPY History of colonic polyps 03/12/2025 9:30 AM EDT documented as of this encounter Visit Diagnoses Not on filedocumented in this encounter Additional Health Concerns Infection Onset Date Last Indicated Resolved Time CoV-Risk Comment:Per note documentation 2024 2024 9:22 PM EDT documented as of this encounter Care Teams Ethnic Origins Teacher Relationship Specialty Start Date End Date Cecilia Irizarry MD, MPH 70 [place] [address] [email or web address] PCP - General Family Medicine 11/23/17 06/24/23 Cecilia Irizarry MD, MPH 70 [place] [address] [email or web address] PCP - General Family Medicine 06/25/23 documented as of this encounter Additional Source Comments The information contained in this document represents components of the legal health record. It is not the complete legal health record.[facility]
--- OUTSIDE RECORDS SUMMARY | 2025-02-19 15:43 | XMS_ITS | Encounter Summary ---
Author Organization [facility] Address 399 [facility] [address] [place] [address] Phone Care Team Providers Care Community Mental Health Worker Name Role Phone Cecilia Irizarry MD, MPH Primary Care Provider + Cecilia Irizarry MD, MPH Primary Care Provider + Encounter Details Date Type Department Care Team (Late Contact Info) Description 10/22/2020 Procedure Pass [facility], Ct Scan - [address] [address] Social History Tobacco Use Types Packs/Day Years [...] Pass [facility] Endoscopy Admitting Dept Virtual Department [address] [place] [address] 03/12/2025 9:30 AM EDT Hospital Encounter [facility] Endoscopy Admitting Dept Virtual Department [address] [place] [address] uH Dobbs MD [address] [place] [address] 03/12/2025 9:30 AM EDT - 03/12/2025 10:00 AM EDT Surgery [facility] Endoscopy Admitting Dept Virtual Department 30 [place] [address] Hu Dobbs MD [address] [address] [email or web address] COLONOSCOPY Scheduled Procedures Name Priority Associated Diagnoses Date/Ti me COLONOSCOPY History of colonic polyps 03/12/2025 9:30 AM EDT documented as of this encounter Visit Diagnoses Not on filedocumented in this encounter Additional Health Concerns Infection Onset Date Last Indicated Resolved Time CoV-Risk Comment:Per note documentation 2024 2024 9:22 PM EDT documented as of this encounter Care Teams Community Mental Health Worker Relationship Specialty Start Date End Date Cecilia Irizarry MD, MPH 70 [place] [address] [email or web address] PCP - General Family Medicine 11/23/17 06/24/23 Cecilia Irizarry MD, MPH 70 [place] [address] [email or web address] PCP - General Family Medicine 06/25/23 documented as of this encounter Additional Source Comments The information contained in this document represents components of the legal health record. It is not the complete legal health record.[facility]
--- OUTSIDE RECORDS SUMMARY | 2025-02-19 15:44 | XMS_ITS | Encounter Summary ---
Author Organization [facility] Address 399 [facility] [address] [place] [address] Phone Care Team Providers Care Manager Wellness Name Role Phone Cecilia Irizarry MD, MPH Primary Care Provider + Encounter Details Date Type Department Care Team (Late st Contact Info) Description 08/29/2023 Procedure Pass [facility], Ct Scan - [facility] [address] [place] [address] Social History Tobacco Use Types Packs/Day Years Used Date Smoking Tobacco: Former Cigarettes 2 40 1 971 - 2010 Smokeless Tobacco: Never Alcohol Use Standard Drinks/Week Comments Not Currently 0 (1 standard drink = 0.6 oz pur e alcohol) Education Answer Date Recorded Are you interested in more education? Not on neetu e 09/22/2022 Are you concerned about learning? Not on file 09/22/2022 No 09/22/2022 No 09/22/2022 Digital Access Answer Date Recorded No 10/23/2022 No 10/23/2022 Reliable internet access at home? Not on file 10/23/2022 Device with a working camera? Not on file Sex and Gender Information Value Date Recorded Sex Assigned at Not on file Legal Sex Male 9:58 PM EDT Gender Identity Not on file Sexual Orientation Not on file documented as of this encounter Plan of Treatment Upcoming Encounters Date Type Department Care Team (Late st Contact Info) Description 03/12/2025 Procedure Pass [facility] Endoscopy Admitting Dept Virtual Department [address] [place] [address] 03/12/2025 9:30 AM EDT Hospital Encounter [facility] Endoscopy Admitting Dept Virtual Department 30 [place] [address] Hu Dobbs MD [address] [address] [email or web address] 03/12/2025 9:30 AM EDT - 03/12/2025 10:00 AM EDT Surgery [facility] Endoscopy Admitting Dept Virtual Department 30 [place] [address] Hu Dobbs MD [address] [address] [email or web address] COLONOSCOPY Scheduled Procedures Name Priority Associated Diagnoses Date/Ti me COLONOSCOPY History of colonic polyps 03/12/2025 9:30 AM EDT documented as of this encounter Visit Diagnoses Not on filedocumented in this encounter Additional Health Concerns Infection Onset Date Last Indicated Resolved Time CoV-Risk Comment:Per note documentation 2024 2024 9:22 PM EDT documented as of this encounter Care Teams Manager Wellness Relationship Specialty Start Date End Date Cecilia Irizarry MD, MPH 70 [place] [address] [email or web address] PCP - General Family Medicine 06/25/23 documented as of this encounter Additional Source Comments The information contained in this document represents components of the legal health record. It is not the complete legal health record.[facility]
--- OUTSIDE RECORDS SUMMARY | 2025-02-19 15:44 | XMS_ITS | Encounter Summary ---
Author Organization [facility] Address 399 [facility] [address] [place] [address] Phone Care Team Providers Care Manager Of Construction Name Role Phone Cecilia Irizarry MD, MPH Primary Care Provider + Cecilia Irizarry MD, MPH Primary Care Provider + Encounter Details Date Type Department Care Team (Latest Contact Info) Description 10/11/2022 Transcribe Orders Virtual Department 30 [place] [address] Cecilia Irizarry MD, MPH 70 [place] [address] [email or web address] Peripheral vascular disease, unspecified (Primary Dx) Social History Tobacco Use Types Packs/Day Years [...] on file 09/22/2022 No 09/22/2022 No 09/22/2022 Sex and Gender Information Value Date Recorded Sex Assigned at Not on file Legal Sex Male 9:58 PM EDT Gender Identity Not on file Sexual Orientation Not on file documented as of this encounter Plan of Treatment Upcoming Encounters Date Type Department Care Team (Late st Contact Info) Description 03/12/2025 Procedure Pass [facility]oscopy Admitting Dept Virtual Department 30 [place] [address] 03/12/2025 9:30 AM EDT Hospital Encounter [facility] Endoscopy Admitting Dept Virtual Department 30 [place] [address] Hu Dobbs MD [address] [address] [email or web address] 03/12/2025 9:30 AM EDT - 03/12/2025 10:00 AM EDT Surgery [facility] Endoscopy Admitting Dept Virtual Department 30 [place] [address] Hu Dobbs MD [address] [address] [email or web address] COLONOSCOPY Scheduled Procedures Name Priority Associated Diagnoses Date/Ti me COLONOSCOPY History of colonic polyps 03/12/2025 9:30 AM EDT documented as of this encounter Visit Diagnoses Diagnosis Peripheral vascular disease, unspecified- Primary History of colonic polyps Personal history of colonic polyps documented in this encounter Additional Health Concerns Infection Onset Date Last Indicated Resolved Time CoV-Risk Comment:Per note documentation 2024 2024 9:22 PM EDT documented as of this encounter Care Teams Manager Of Construction Relationship Specialty Start Date End Date Cecilia Irizarry MD, MPH [address] [place] [address] [email or web address] PCP - General Family Medicine 11/23/17 06/24/23 Cecilia Irizarry MD, MPH 70 [place] [address] [email or web address] PCP - General Family Medicine 06/25/23 documented as of this encounter Additional Source Comments The information contained in this document represents components of the legal health record. It is not the complete legal health record.[facility]
--- OUTSIDE RECORDS SUMMARY | 2025-02-19 15:44 | XMS_ITS | Encounter Summary ---
Author Organization [facility] Address [address] [address] Phone Care Team Providers Care Studio Hand Name Role Phone Cecilia Irizarry MD, MPH Primary Care Provider + Cecilia Irizarry MD, MPH Primary Care Provider + Reason for Referral * Consultation (Elective) - Closed Specialty Diagnoses / Procedures Referred By Contac t Referred To Contact Pulmonary Disease Cecilia Irizarry MD, MPH Phone: tel: fax: [email or web address] [facility] [address] [place] [address] Phone: tel: Referral ID Status Reason Start Date Expiration Date Visits Re quested Visits Authorized [id number] Closed 09/08/2020 09/08/2021 1 1 Encounter Details Date Type Department Care Team (Late st Contact Info) Description 09/08/2020 Transcribe Orders [facility] Pulmonary, Allergy and Critical Care Medicine 10 [place] [address] Cecilia Irizarry MD, MPH 70 [place], [place] [phone] [email or web address] Social History Tobacco Use [...] st Contact Info) Description 03/12/2025 Procedure Pass [facility] Endoscopy Admitting Dept Virtual Department [address] [place] [address] 03/12/2025 9:30 AM EDT Hospital Encounter [facility] Endoscopy Admitting Dept Virtual Department [address] [place] [address] Hu Dobbs MD [address] [address] 03/12/2025 9:30 AM EDT - 03/12/2025 10:00 AM EDT Surgery [facility] Endoscopy Admitting Dept Virtual Department [address] [place] [address] Hu Dobbs MD [address] [place] [address] COLONOSCOPY Scheduled Procedures Name Priority Associated Diagnoses Date/Ti me COLONOSCOPY History of colonic polyps 03/12/2025 9:30 AM EDT Scheduled Referrals Name Type Priority Associated Diagnoses Order Schedule Ambulatory referral to [facility] Pulmonology Outpatient Referral Routine Ordered: 09/08/2020 documented as of this encounter Visit Diagnoses Not on filedocumented in this encounter Additional Health Concerns Infection Onset Date Last Indicated Resolved Time CoV-Risk Comment:Per note documentation 2024 2024 9:22 PM EDT documented as of this encounter Care Teams Studio Hand Relationship Specialty Start Date End Date Cecilia Irizarry MD, MPH [address] [place] [address] PCP - General Family Medicine 11/23/17 06/24/23 Cecilia Irizarry MD, MPH [address] [place] [address] [email or web address] PCP - General Family Medicine 06/25/23 documented as of this encounter Additional Source Comments The information contained in this document represents components of the legal health record. It is not the complete legal health record.[facility]
--- OUTSIDE RECORDS SUMMARY | 2025-02-19 15:45 | XMS_ITS | Encounter Summary ---
Author Organization [facility] Address 399 [facility] [address] [place] [address] Phone Care Team Providers Care Software Engineer Advisor Name Role Phone Cecilia Irizarry MD, MPH Primary Care Provider + Cecilia Irizarry MD, MPH Primary Care Provider + Encounter Details Date Type Department Care Team (Late Contact Info) Description 01/02/2022 Procedure Pass [facility], Ct Scan - [address] [address] Social History Tobacco Use Types Packs/Day Years [...] Pass [facility] Endoscopy Admitting Dept Virtual Department [address] [place] [address] 03/12/2025 9:30 AM EDT Hospital Encounter [facility] Endoscopy Admitting Dept Virtual Department [address] [place] [address] Hu Dobbs MD [address] [place] [address] 03/12/2025 9:30 AM EDT - 03/12/2025 10:00 AM EDT Surgery [facility] Endoscopy Admitting Dept Virtual Department 30 [place] [address] Hu Dobbs MD [address] [address] [email or web address] COLONOSCOPY Scheduled Procedures Name Priority Associated Diagnoses Date/Ti me COLONOSCOPY History of colonic polyps 03/12/2025 9:30 AM EDT documented as of this encounter Visit Diagnoses Not on filedocumented in this encounter Additional Health Concerns Infection Onset Date Last Indicated Resolved Time CoV-Risk Comment:Per note documentation 2024 2024 9:22 PM EDT documented as of this encounter Care Teams Software Engineer Advisor Relationship Specialty Start Date End Date Cecilia Irizarry MD, MPH [address] [place] [address] [email or web address] PCP - General Family Medicine 11/23/17 06/24/23 Cecilia Irizarry MD, MPH [address] [place] [address] [email or web address] PCP - General Family Medicine 06/25/23 documented as of this encounter Additional Source Comments The information contained in this document represents components of the legal health record. It is not the complete legal health record.[facility]
--- OUTSIDE RECORDS SUMMARY | 2025-02-19 15:45 | XMS_ITS | Encounter Summary ---
Author Organization [facility] Address 399 [facility] [address] [place] [address] Phone Care Team Providers Care Jeep Driver Name Role Phone Cecilia Irizarry MD, MPH Primary Care Provider + Cecilia Irizarry MD, MPH Primary Care Provider + Encounter Details Date Type Department Care Team (Latest Contact Info) Description 09/19/2020 Transcribe Orders Virtual Department [address] [place] [address] Cecilia Irizarry MD, MPH 70 [place], [place] [phone] [email or web address] Chronic obstructive pulmonary disease, unspecified COPD type (Primary Dx) Social History Tobacco Use Types [...] Pass [facility] Endoscopy Admitting Dept Virtual Department [address] [place] [address] 03/12/2025 9:30 AM EDT Hospital Encounter [facility] Endoscopy Admitting Dept Virtual Department 30 [place] [address] Hu Dobbs MD [address] [place] [address] [email or web address] 03/12/2025 9:30 AM EDT - 03/12/2025 10:00 AM EDT Surgery [facility] Endoscopy Admitting Dept Virtual Department 30 [place] [address] Hu Dobbs MD [address] [place] [address] [address] [address] [email or web address] COLONOSCOPY Scheduled Procedures Name Priority Associated Diagnoses Date/Ti me COLONOSCOPY History of colonic polyps 03/12/2025 9:30 AM EDT documented as of this encounter Results * Pulmonary Function Test Reason for Exam: Other (specify) (CHRONIC OBSTRUCTIVE LUNG DISEASE); Type of PFT Test: Lung Volumes, DLCO, Spirometry with bronchodilator; Performing Location: [facility] (112:56 PM EDT) FEV1 0.84 liters FVC 2.32 liters FEV1/FVC 36 % TLC 6.18 liters DLCO 9.8 ml/mmHg sec Anatomical Region Laterality Modality Other Impressions 10/11/2020 12:56 PM EDT PULMONARY FUNCTION STUDIES Full pulmonary function studies were performed on this 65 y.o. year-old male for evaluation of COPD. Review of the medical record reveals that the patient is a past smoker. Prior pulmonary function studies are available for comparison, performed on 07/12/2016. SPIROMETRY: The FEV1 is severely impaired at 0.84 L or 34% predicted. The FVC is moderately impaired at 2.32 L or 65% predicted. The FEV1/FVC ratio is impaired at 36%. After the administration of a bronchodilator agent, there are technically significant improvements in both FEV1 and FVC without normalization of the FEV1/FVC ratio. Specifically, the postbronchodilator FEV1 improved to 1.13 L or 45% after a 35% improvement. FLOW-VOLUME LOOPS: Evaluation of the flow-volume loops reveals normal morphology of the inspiratory limb with scooping of the expiratory limb and blunting of the peak expiratory flows in keeping with the patient's obstructive lung disease. LUNG VOLUME MEASUREMENTS BY PLETHYSMOGRAPHY: The total lung capacity is elevated at 6.18 L or 121% predicted. The functional residual capacity is elevated at 3.75 L or 132% predicted. The calculated airway resistance is elevated at nearly 5-fold normal. DIFFUSION CAPACITY: The diffusion capacity is moderately impaired at 9.8 mL/mmHg sec or 52% predicted. COMPARISON TO PRIOR STUDIES: When comparing to prior studies, there have been progressive impairments in the degree of airflow limitation and DLCO impairment. Specifically, postbronchodilator FEV1 was previously measured at 1.68 L or 64% predicted, and DLCO was previously measured at 70% predicted. Lung volume measurements have remain grossly unchanged. Resting oxygen saturation is 96% on room air. IMPRESSION: Abnormal pulmonary function studies as evidenced by severe fixed airflow limitation, though with technically significant improvements in both FEV1 and FVC suggestive of asthma C OPD overlap. Lung volumes reveal mild hyperinflation with air trapping. There is a moderate impairment in diffusion capacity which, in this clinical context, may be secondary to emphysema, pulmonary vascular disease, interstitial lung disease and/or anemia. Cecilia Irizarry MD, MPH PFT ORDERABLES Final Re sult documented in this encounter Visit Diagnoses Diagnosis Chronic obstructive pulmonary disease, unspecified COPD type- Primary Chronic obstructive pulmonary disease, unspecified COPD type History of colonic polyps Personal history of colonic polyps documented in this encounter Additional Health Concerns Infection Onset Date Last Indicated Resolved Time CoV-Risk Comment:Per note documentation 2024 2024 9:22 PM EDT documented as of this encounter Care Teams Jeep Driver Relationship Specialty Start Date End Date Cecilia Irizarry MD, MPH [address] [place] [address] PCP - General Family Medicine 11/23/17 06/24/23 Cecilia Irizarry MD, MPH [address] [place] [address] PCP - General Family Medicine 06/25/23 documented as of this encounter Additional Source Comments The information contained in this document represents components of the legal health record. It is not the complete legal health record.[facility]
--- OUTSIDE RECORDS SUMMARY | 2025-02-19 15:45 | XMS_ITS | Encounter Summary ---
Author Organization [facility] Address 399 [facility] [address] [place] [address] Phone Care Team Providers Care Container Finisher Name Role Phone Cecilia Irizarry MD, MPH Primary Care Provider + Cecilia Irizarry MD, MPH Primary Care Provider + Encounter Details Date Type Department Care Team (Late st Contact Info) Description 06/18/2023 Transcribe Orders [facility] PFT Lab [address] [place] [address] Lucius Murillo MD, MS [address] [address] [email or web address] Social History Tobacco Use [...] [facility] Endoscopy Admitting Dept Virtual Department 30 [place] [address] 03/12/2025 9:30 AM EDT Hospital Encounter [facility] Endoscopy Admitting Dept Virtual Department 30 [place] [address] Hu Dobbs MD [address] [address] 03/12/2025 9:30 AM EDT - 03/12/2025 10:00 AM EDT Surgery [facility] Endoscopy Admitting Dept Virtual Department 30 [place] [address] Hu Dobbs MD [address] [address] [email or web address] COLONOSCOPY Scheduled Procedures Name Priority Associated Diagnoses Date/Ti me COLONOSCOPY History of colonic polyps 03/12/2025 9:30 AM EDT documented as of this encounter Visit Diagnoses Not on filedocumented in this encounter Additional Health Concerns Infection Onset Date Last Indicated Resolved Time CoV-Risk Comment:Per note documentation 2024 2024 9:22 PM EDT documented as of this encounter Care Teams Container Finisher Relationship Specialty Start Date End Date Cecilia Irizarry MD, MPH [address] [place] [address] [email or web address] PCP - General Family Medicine 11/23/17 06/24/23 Cecilia Irizarry MD, MPH [address] [place] [address] [email or web address] PCP - General Family Medicine 06/25/23 documented as of this encounter Additional Source Comments The information contained in this document represents components of the legal health record. It is not the complete legal health record.[facility]
--- OUTSIDE RECORDS SUMMARY | 2025-02-19 15:46 | XMS_ITS | Encounter Summary ---
Author Organization [facility] Address [address] [facility] [address] [place] [phone] Phone Care Team Providers Care Negative Developer Name Role Phone Cecilia Irizarry MD, MPH Primary Care Provider + Cecilia Irizarry MD, MPH Primary Care Provider + Encounter Details Date Type Department Care Team (Late Contact Info) Description 12/03/2017 Ancillary Orders Virtual Department [address] [place] [address] Cecilia Irizarry MD, MPH [address] [place] [address] Social History Tobacco Use Types Packs/Day Years Used Date Smoking Tobacco: Never Assessed Sex and Gender Information Value Date Recorded Sex Assigned at Not on file Legal Sex Male 9:58 PM EDT Gender Identity Not on file Sexual Orientation Not on file documented as of this encounter Plan of Treatment Upcoming Encounters Date Type Department Care Team (Late Contact Info) Description 03/12/2025 Procedure Pass [facility] Endoscopy Admitting Dept Virtual Department [address] [place] [address] 03/12/2025 9:30 AM EDT Hospital Encounter [facility] Endoscopy Admitting Dept Virtual Department 30 [place] [address] Hu Dobbs MD [address] [place] [address] 03/12/2025 9:30 AM EDT - 03/12/2025 10:00 AM EDT Surgery [facility] Endoscopy Admitting Dept Virtual Department 30 [place] [address] Hu Dobbs MD [address] [place] [address] [email or web address] COLONOSCOPY Scheduled Procedures Name Priority Associated Diagnoses Date/Ti me COLONOSCOPY History of colonic polyps 03/12/2025 9:30 AM EDT documented as of this encounter Visit Diagnoses Not on filedocumented in this encounter Additional Health Concerns Infection Onset Date Last Indicated Resolved Time CoV-Risk 12/05/2019 12/06/2019 12/19/2019 3:34 AM EDT CoV-Risk Comment:Per note documentation 2024 2024 9:22 PM EDT documented as of this encounter Care Teams Negative Developer Relationship Specialty Start Date End Date Cecilia Irizarry MD, MPH [address] [place] [address] [email or web address] PCP - General Family Medicine 11/23/17 06/24/23 Cecilia Irizarry MD, MPH [address] [place] [address] [email or web address] PCP - General Family Medicine 06/25/23 documented as of this encounter Additional Source Comments The information contained in this document represents components of the legal health record. It is not the complete legal health record.[facility]
--- OUTSIDE RECORDS SUMMARY | 2025-02-19 15:46 | XMS_ITS | Encounter Summary ---
Author Organization [facility] Address [address] [facility] [address] [place] [address] Phone Care Team Providers Care Athletics Teacher Name Role Phone Cecilia Irizarry MD, MPH Primary Care Provider + Cecilia Irizarry MD, MPH Primary Care Provider + Encounter Details Date Type Department Care Team (Late Contact Info) Description 12/03/2017 Ancillary Orders Virtual Department [address] [place] [phone] Cecilia Irizarry MD, MPH 70 [place] [address] Social History Tobacco Use Types Packs/Day Years [...] Pass [facility] Endoscopy Admitting Dept Virtual Department [address] [place] [address] 03/12/2025 9:30 AM EDT Hospital Encounter [facility] Endoscopy Admitting Dept Virtual Department 30 [place] [address] Hu Dobbs MD [address] [place] [address] 03/12/2025 9:30 AM EDT - 03/12/2025 10:00 AM EDT Surgery [facility] Endoscopy Admitting Dept Virtual Department 30 [place] [address] Hu Dobbs MD [address] [place] [address] [email or web address] COLONOSCOPY Scheduled Procedures Name Priority Associated Diagnoses [...] documented as of this encounter Care Teams Athletics Teacher Relationship Specialty Start Date End Date Cecilia Irizarry MD, MPH [address] [place] [address] [email or web address] PCP - General Family Medicine 11/23/17 06/24/23 Cecilia Irizarry MD, MPH [address] [place] [address] [email or web address] PCP - General Family Medicine 06/25/23 documented as of this encounter Additional Source Comments The information contained in this document represents components of the legal health record. It is not the complete legal health record.[facility]
--- OUTSIDE RECORDS SUMMARY | 2025-02-19 15:47 | XMS_ITS | Encounter Summary ---
Author Organization [facility] Address [address] [facility] [address] [place] [address] Phone Care Team Providers Care Tube Blower Name Role Phone Cecilia Irizarry MD, MPH Primary Care Provider + Cecilia Irizarry MD, MPH Primary Care Provider + Cceilia Irizarry MD, MPH Primary Care Provider + Encounter Details Date Type Department Care Team (Late Contact Info) Description 11/15/2017 Ancillary Orders Virtual Department [address] [place] [address] Cecilia Irizarry MD, MPH [address] [place] [address] Chest pain, unspecified type Social History Tobacco Use Types Packs/Day Years [...] Pass [facility] Endoscopy Admitting Dept Virtual Department [address] [place] [address] 03/12/2025 9:30 AM EDT Hospital Encounter [facility] Endoscopy Admitting Dept Virtual Department 30 [place] [address] Hu Dobbs MD [address] [place] [address] [email or web address] 03/12/2025 9:30 AM EDT - 03/12/2025 10:00 AM EDT Surgery [facility] Endoscopy Admitting Dept Virtual Department 30 [place] [address] Hu Dobbs MD [address] [facility] 2 [place] [address] [email or web address] COLONOSCOPY Scheduled Procedures Name Priority Associated Diagnoses Date/Ti me COLONOSCOPY History of colonic polyps 03/12/2025 9:30 AM EDT documented as of this encounter Results * Stress Test Exercise (11/26/2017 11:55 AM EDT) Max BP Systolic 210 mmHg [facility] Max BP Diastolic 80 mmHg [facility] Max HR 142 BPM [facility] Resting HR 88 BPM [facility] Resting BP Systolic 134 mmHg [facility] Resting BP Diastolic 60 mmHg [facility] Peak METS 6.5 METS [facility] Peak HR 139 BPM [facility] Anatomical Region Laterality Modality Heart Other 11/26/2017 11:1 3 AM EDT 11/26/2017 11:55 AM EDT Narrative 11/26/2017 1:53 PM EDT Response to Stress The patient exercised for minutes seconds, achieving 6.5 METS at peak exercise. Baseline blood pressure was 134/60 bpm, and baseline heart rate was 88. The patient achieved a peak heart rate of 139 bpm, which is% of their maximum predicted heart rate. Exercise Stress Test Report: Reason for termination: SOB, dizziness Summary: Resting ECG: SR HR 82 BPM Functional capacity: fair Heart rate response to exercise: appropriate Blood pressure response to exercise: baseline normotensive - hypertensive response to exercise Chest pain: none Arrhythmias: none Conclusion: Patient exercised for 3:49 minutes on a standard Bernardo protocol achieving 91% MPHR and 6.5 METS. Test terminated due to SOB, dizziness. Summary: 1. EKG: No EKG evidence of ischemia meeting criteria, however walked < 4 minutes. 2. Symptoms: No exertional chest pain or symptoms concerning for angina. SOB out of proportion with workload. Feeling dizzy when O2 sat to 91% and also having PVCs. 3. Exercise physiology: Max HR 142 BPM with normal HR recovery. Max BP 210/80 from baseline BP of 134/60. 02 sat down to 91% with peak exercise, 93% in early recovery and up to 97% after use of albuterol inhaler. Fair functional capacity for age noted 4. Arrhythmia: frequent PVCs in early exercise, occasional couplet; at peak exercise and into recovery, frequent PVCs - including episodes bigeminy, occasional couplet. PVCs decreasing in frequency in late recovery. Conclusion: Equivocal ETT. Frequent ectopy during exercise, slowing down in recovery. Also feeling dizzy at peak exercise with O2 sat down to 91% and frequent PVCs. Vital signs at baseline at time of discharge from the lab. EKG reviewed with Dr. Salgado. Due to PMHx of DM and insufficient workload with today's test, recommending treadmill nuclear stress test. If unable to achieve target HR during treadmill portion of test, can convert to pharmacological stress test. Blanca Manuel, HEIKE, MPH . Cecilia Irizarry MD, MPH CV STRESS ORDERABLES Fin al Result documented in this encounter Visit Diagnoses Diagnosis Chest pain, unspecified type Chest pain, unspecified type History of colonic polyps Personal history of colonic polyps documented in this encounter Additional Health Concerns Infection Onset Date Last Indicated Resolved Time CoV-Risk 12/05/2019 12/06/2019 12/19/2019 3:34 AM EDT CoV-Risk Comment:Per note documentation 2024 2024 9:22 PM EDT documented as of this encounter Care Teams Tube Blower Relationship Specialty Start Date End Date Cecilia Irizarry MD, MPH [address] [place] [address] [email or web address] PCP - General Family Medicine 04/23/17 11/22/17 Cecilia Irizarry MD, MPH [address] [place] [address] [email or web address] PCP - General Family Medicine 11/23/17 06/24/23 Cecilia Irizarry MD, MPH [address] [place] [address] [email or web address] PCP - General Family Medicine 06/25/23 documented as of this encounter Additional Source Comments The information contained in this document represents components of the legal health record. It is not the complete legal health record.[facility]
--- OUTSIDE RECORDS SUMMARY | 2025-02-19 15:48 | XMS_ITS | Encounter Summary ---
Author Organization [facility] Address [address] [facility] [address] [place] [address] Phone Care Team Providers Care Glost Kiln Placer Name Role Phone Cecilia Irizarry MD, MPH Primary Care Provider + Cecilia Irizarry MD, MPH Primary Care Provider + Encounter Details Date Type Department Care Team (Late st Contact Info) Description 04/24/2022 Transcribe Orders [facility] 30 [place] [address] Lucius Murillo MD, MS [address] [address] [email or web address] Social History Tobacco Use Types Packs/Day Years Used Date Smoking Tobacco: Former Cigarettes 2 40 1 - 2010 Smokeless Tobacco: Never Alcohol [...] [facility] Endoscopy Admitting Dept Virtual Department 30 [place] [address] 03/12/2025 9:30 AM EDT Hospital Encounter [facility] Endoscopy Admitting Dept Virtual Department [address] [place] [address] Hu Dobbs MD [address] [place] [address] [phone] 03/12/2025 9:30 AM EDT - 03/12/2025 10:00 AM EDT Surgery [facility] Endoscopy Admitting Dept Virtual Department 30 [place] [address] Hu Dobbs MD [address] [place] [address] [email or web address] COLONOSCOPY Scheduled Procedures Name Priority Associated Diagnoses Date/Ti me COLONOSCOPY History of colonic polyps 03/12/2025 9:30 AM EDT documented as of this encounter Visit Diagnoses Not on filedocumented in this encounter Additional Health Concerns Infection Onset Date Last Indicated Resolved Time CoV-Risk Comment:Per note documentation 2024 2024 9:22 PM EDT documented as of this encounter Care Teams Glost Kiln Placer Relationship Specialty Start Date End Date Cecilia Irizarry MD, MPH [address] [place] [address] [email or web address] PCP - General Family Medicine 11/23/17 06/24/23 Cecilia Irizarry MD, MPH [address] [place] [address] [email or web address] PCP - General Family Medicine 06/25/23 documented as of this encounter Additional Source Comments The information contained in this document represents components of the legal health record. It is not the complete legal health record.[facility]
--- OUTSIDE RECORDS SUMMARY | 2025-02-19 15:49 | XMS_ITS | Encounter Summary ---
Author Organization [facility] Address [address] [facility] [address] [place] [address] Phone Care Team Providers Care Senior Data Quality Analyst Name Role Phone Cecilia Irizarry MD, MPH Primary Care Provider + Cecilia Irizarry MD, MPH Primary Care Provider + Encounter Details Date Type Department Care Team (Late Contact Info) Description 09/08/2021 Procedure Pass [facility] Endoscopy Admitting Dept Virtual Department [address] [place] [address] Social History Tobacco Use Types Packs/Day Years [...] Pass [facility] Endoscopy Admitting Dept Virtual Department [address] [place] [address] 03/12/2025 9:30 AM EDT Hospital Encounter [facility] Endoscopy Admitting Dept Virtual Department [address] [place] [address] Hu Dobbs MD [address] [place] [address] 03/12/2025 9:30 AM EDT - 03/12/2025 10:00 AM EDT Surgery [facility] Endoscopy Admitting Dept Virtual Department 30 [place] [address] Hu Dobbs MD [address] [address] [email or web address] COLONOSCOPY Scheduled Procedures Name Priority Associated Diagnoses Date/Ti me COLONOSCOPY History of colonic polyps 03/12/2025 9:30 AM EDT documented as of this encounter Visit Diagnoses Not on filedocumented in this encounter Additional Health Concerns Infection Onset Date Last Indicated Resolved Time CoV-Risk Comment:Per note documentation 2024 2024 9:22 PM EDT documented as of this encounter Care Teams Senior Data Quality Analyst Relationship Specialty Start Date End Date Cecilia Irizarry MD, MPH [address] [place] [address] [email or web address] PCP - General Family Medicine 11/23/17 06/24/23 Cecilia Irizarry MD, MPH [address] [place] [address] [email or web address] PCP - General Family Medicine 06/25/23 documented as of this encounter Additional Source Comments The information contained in this document represents components of the legal health record. It is not the complete legal health record.[facility]
--- OUTSIDE RECORDS SUMMARY | 2025-02-19 15:49 | XMS_ITS | Encounter Summary ---
Author Organization [facility] Address [address] [facility] [address] [place] [address] Phone Care Team Providers Care Ladle Patcher Name Role Phone Cecilia Irizarry MD, MPH Primary Care Provider + Cecilia Irizarry MD, MPH Primary Care Provider + Cecilia Irizarry MD, MPH Primary Care Provider + Encounter Details Date Type Department Care Team (Late Contact Info) Description 04/17/2017 Ancillary Orders Virtual Department [address] [place] [address] Cecilia Irizarry MD, MPH 70 [place] [address] [email or web address] Retinal hemorrhage, unspecified laterality Social History Tobacco Use Types Packs/Day Years [...] Pass [facility] Endoscopy Admitting Dept Virtual Department [address] [place] [address] 03/12/2025 9:30 AM EDT Hospital Encounter [facility] Endoscopy Admitting Dept Virtual Department 30 [place] [address] Hu Dobbs MD [address] [place] [address] 03/12/2025 9:30 AM EDT - 03/12/2025 10:00 AM EDT Surgery [facility] Endoscopy Admitting Dept Virtual Department 30 [place] [address] Hu Dobbs MD [address] [place] [address] 2 [place] [address] [email or web address] COLONOSCOPY Scheduled Procedures Name Priority Associated Diagnoses Date/Ti pr COLONOSCOPY History of colonic polyps 03/12/2025 9:30 AM EDT documented as of this encounter Results * US Carotid Duplex (Bilateral) (05/02/2017 3:36 PM EST) Anatomical Region Laterality Modality Heart, Thoracic Vasculature, Neck Ultrasound 05/02/2017 5:41 PM EST Impressions 05/02/2017 5:45 PM EST Moderate-large amount of hard plaque in the right carotid bulb. Elevated velocity values are consistent with a stenosis of 50-69%. Small-moderate amount of plaque in the left carotid bulb but no evidence of hemodynamically significant stenosis. POS - [id number] Narrative 05/02/2017 5:45 PM EST HISTORY: Possible CVA, retinal hemorrhage COMPARISON: None. FINDINGS: Right cervical carotid arterial system: Moderate to large amount of calcified plaque in the bulb narrowing of the diameter of the lumen of the proximal internal carotid artery appears more than 50% compared with the distal internal carotid artery. Peak systolic velocity is moderately elevated measuring 146 cm/s. Peak diastolic velocity of the internal carotid artery is not elevated measuring 29 cm/s. Left cervical carotid arterial system: Small-moderate amount of partially calcified plaque in the bulb. Narrowing of the diameter of the lumen of the proximal internal carotid artery appears less than 50% compared with the distal internal carotid artery. Peak systolic and diastolic velocities of the internal carotid artery are not elevated measuring 118 cm/s and 24 cm/s, respectively. Vertebral arteries: Normal antegrade flow. Procedure Note Todd Whiteside MD - 05/02/2017 HISTORY: Possible CVA, retinal hemorrhage COMPARISON: None. FINDINGS: Right cervical carotid arterial system: Moderate to large amount ofcalcified plaque in the bulb narrowing of the diameter of the lumen of theproximal internal carotid artery appears more than 50% compared with thedistal internal carotid artery. Peak systolic velocity is moderatelyelevated measuring 146 cm/s. Peak diastolic velocity of the internalcarotid artery is not elevated measuring 29 cm/s. Left cervical carotid arterial system: Small-moderate amount of partiallycalcified plaque in the bulb. Narrowing of the diameter of the lumen ofthe proximal internal carotid artery appears less than 50% compared withthe distal internal carotid artery. Peak systolic and diastolicvelocities of the internal carotid artery are not elevated measuring 118cm/s and 24 cm/s, respectively. Vertebral arteries: Normal antegrade flow. IMPRESSION: Moderate-large amount of hard plaque in the right carotid bulb. Elevatedvelocity values are consistent with a stenosis of 50-69%. Small-moderateamount of plaque in the left carotid bulb but no evidence ofhemodynamically significant stenosis. POS - [id number] us Cecilia Irizarry MD, MPH CV US NEUROVASCULAR Bisi l Result documented in this encounter Visit Diagnoses Diagnosis Retinal hemorrhage, unspecified laterality Retinal hemorrhage, unspecified laterality History of colonic polyps Personal history of colonic polyps documented in this encounter Additional Health Concerns Infection Onset Date Last Indicated Resolved Time CoV-Risk 12/05/2019 12/06/2019 12/19/2019 3:34 AM EDT CoV-Risk Comment:Per note documentation 2024 2024 9:22 PM EDT documented as of this encounter Care Teams Ladle Patcher Relationship Specialty Start Date End Date Cecilia Irizarry MD, MPH [address] [place] [address] [email or web address] PCP - General Family Medicine 04/23/17 11/22/17 Cecilia Irizarry MD, MPH [address] [place] [address] [email or web address] PCP - General Family Medicine 11/23/17 06/24/23 Cecilia Irizarry MD, MPH [address] [place] [address] [email or web address] PCP - General Family Medicine 06/25/23 documented as of this encounter Additional Source Comments The information contained in this document represents components of the legal health record. It is not the complete legal health record.[facility]
--- OUTSIDE RECORDS SUMMARY | 2025-02-19 15:49 | XMS_ITS | Encounter Summary ---
Author Organization [facility] Address [address] [facility] [address] [place] [address] Phone Care Team Providers Care Channel Process Plant Operator Name Role Phone Cecilia Irizarry MD, MPH Primary Care Provider + Cecilia Irizarry MD, MPH Primary Care Provider + Encounter Details Date Type Department Care Team (Latest Contact Info) Description 12/05/2019 Transcribe Orders Virtual Department [address] [place] [address] Cynthia Rondon SERVICE ADMINISTRATOR [address] [place] [address] Cough (Primary Dx); Shortness of breath Social History Tobacco Use Types Packs/Day Years [...] Pass [facility] Endoscopy Admitting Dept Virtual Department [address] [place] [address] 03/12/2025 9:30 AM EDT Hospital Encounter [facility] Endoscopy Admitting Dept Virtual Department [address] [place] [address] Hu Dobbs MD [address] [place] [address] 03/12/2025 9:30 AM EDT - 03/12/2025 10:00 AM EDT Surgery [facility] Endoscopy Admitting Dept Virtual Department [address] [place] [address] Hu Dobbs MD [address] [place] [address] [email or web address] COLONOSCOPY Scheduled Procedures Name Priority Associated Diagnoses Date/Ti me COLONOSCOPY History of colonic polyps 03/12/2025 9:30 AM EDT documented as of this encounter Results * COVID-19 PCR Order (12/06/2019 9:54 AM EDT) Specimen Source NASOPHARYNGEAL SWAB (SERVICE ADMINISTRATOR) [facility] COVID Testing Status Sent to [facility] Other 12/06/2019 9:54 AM EDT 12/06/2019 10:20 AM EDT us Cynthia Rondon SERVICE ADMINISTRATOR BODY FLUIDS AND STOOLS ORDERABL ES Final Result [facility] [address] [place] [address] documented in this encounter Visit Diagnoses Diagnosis Cough- Primary Shortness of breath History of colonic polyps Personal history of colonic polyps documented in this encounter Additional Health Concerns Infection Onset Date Last Indicated Resolved Time CoV-Risk 12/05/2019 12/06/2019 12/19/2019 3:34 AM EDT CoV-Risk Comment:Per note documentation 2024 2024 9:22 PM EDT documented as of this encounter Care Teams Channel Process Plant Operator Relationship Specialty Start Date End Date Cecilia Irizarry MD, MPH [address] [place] [address] [email or web address] PCP - General Family Medicine 11/23/17 06/24/23 Cecilia Irizarry MD, MPH [address] [place] [address] [email or web address] PCP - General Family Medicine 06/25/23 documented as of this encounter Additional Source Comments The information contained in this document represents components of the legal health record. It is not the complete legal health record.[facility]
--- OUTSIDE RECORDS SUMMARY | 2025-02-19 15:50 | XMS_ITS | Encounter Summary ---
Author Organization [facility] Address [address] [facility] [address] [place] [phone] Phone Care Team Providers Care Voltmeter Operator Name Role Phone Cecilia Irizarry MD, MPH Primary Care Provider + Cecilia Irizarry MD, MPH Primary Care Provider + Encounter Details Date Type Department Care Team (Late Contact Info) Description 12/31/2020 Procedure Pass [facility], Ct Scan - [address] [address] Social History Tobacco Use Types Packs/Day Years [...] Pass [facility] Endoscopy Admitting Dept Virtual Department [address] [place] [phone] 03/12/2025 9:30 AM EDT Hospital Encounter [facility] Admitting Dept Virtual Department [address] [place] [phone] Hu Dobbs MD [address] [place] [phone] 03/12/2025 9:30 AM EDT - 03/12/2025 10:00 AM EDT Surgery [facility] Endoscopy Admitting Dept Virtual Department [address] [place] [address] Hu Dobbs MD [address] [address] [email or web address] COLONOSCOPY Scheduled Procedures Name Priority Associated Diagnoses Date/Ti me COLONOSCOPY History of colonic polyps 03/12/2025 9:30 AM EDT documented as of this encounter Visit Diagnoses Not on filedocumented in this encounter Additional Health Concerns Infection Onset Date Last Indicated Resolved Time CoV-Risk Comment:Per note documentation 2024 2024 9:22 PM EDT documented as of this encounter Care Teams Voltmeter Operator Relationship Specialty Start Date End Date Cecilia Irizarry MD, MPH [address] [place] [address] [email or web address] PCP - General Family Medicine 11/23/17 06/24/23 Cecilia Irizarry MD, MPH [address] [place] [address] [email or web address] PCP - General Family Medicine 06/25/23 documented as of this encounter Additional Source Comments The information contained in this document represents components of the legal health record. It is not the complete legal health record.[facility]
--- OUTSIDE RECORDS SUMMARY | 2025-02-19 15:51 | XMS_ITS | Encounter Summary ---
Author Organization [facility] Address [address] [facility] [address] [place] [phone] Phone Care Team Providers Care Sanding Machine Tender Automatic Name Role Phone Cecilia Irizarry MD, MPH Primary Care Provider + Cecilia Irizarry MD, MPH Primary Care Provider + Cecilia Irizarry MD, MPH Primary Care Provider + Encounter Details Date Type Department Care Team (Late st Contact Info) Description 08/01/2017 Procedure Pass [facility], Ct Scan - [address] [address] Social History Tobacco Use Types Packs/Day Years [...] Pass [facility]oscopy Admitting Dept Virtual Department [address] [place] [address] 03/12/2025 9:30 AM EDT Hospital Encounter [facility] Admitting Dept Virtual Department [address] [place] [address] Hu Dobbs MD [address] [place] [phone] 03/12/2025 9:30 AM EDT - 03/12/2025 10:00 AM EDT Surgery [facility] Endoscopy Admitting Dept Virtual Department [address] [place] [address] Hu Dobbs MD [address] [address] [email or web address] Scheduled Procedures Name Priority Associated Diagnoses [...] documented as of this encounter Care Teams Sanding Machine Tender Automatic Relationship Specialty Start Date End Date Cecilia Irizarry MD, MPH [address] [place] [address] [email or web address] PCP - General Family Medicine 04/23/17 11/22/17 Cecilia Irizarry MD, MPH [address] [place] [address] [email or web address] PCP - General Family Medicine 11/23/17 06/24/23 Cecilia Irizarry MD, MPH [address] [place] [address] [email or web address] PCP - General Family Medicine 06/25/23 documented as of this encounter Additional Source Comments The information contained in this document represents components of the legal health record. It is not the complete legal health record.[facility]
--- OUTSIDE RECORDS SUMMARY | 2025-02-19 15:51 | XMS_ITS | Encounter Summary ---
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 Role Phone Cecilia Irizarry MD, MPH Primary Care Provider + Cecilia Irizarry MD, MPH Primary Care Provider + Cecilia Irizarry MD, MPH Primary Care Provider + Reason for Referral * MRI/CAT Scan - Closed Specialty Diagnoses / Procedures Referred By Sergey kang Referred To Contact Radiology Diagnoses Screening for malignant neoplasm of respiratory organ Procedures CT Chest Lung Cancer Screening Cecilia Irizarry MD, MPH Phone: tel: fax: mailto: Referral ID Status Reason Start Date Expiration Date Visits Re quested Visits Authorized [id number] Closed 08/01/2017 10/30/2017 1 1 Encounter Details Date Type Department Care Team (Late st Contact Info) Description 08/01/2017 Ancillary Orders Virtual Department [address] [place] [address] Cecilia Irizarry MD, MPH [address] [place], [place] [phone] Screening for malignant neoplasm of respiratory organ Social History Tobacco Use Types Packs/Day Years [...] st Contact Info) Description 03/12/2025 Procedure Pass [facility] Endoscopy Admitting Dept Virtual Department [address] [place] [address] 03/12/2025 9:30 AM EDT Hospital Encounter [facility] Endoscopy Admitting Dept Virtual Department [address] [place] [address] Hu Dobbs MD [address] [facility] 2 [place] [address] [email or web address] 03/12/2025 9:30 AM EDT - 03/12/2025 10:00 AM EDT Surgery [facility] Endoscopy Admitting Dept Virtual Department [address] [place] [address] Hu Dobbs MD [address] [address] [email or web address] COLONOSCOPY Scheduled Procedures Name Priority Associated Diagnoses Date/Ti me COLONOSCOPY History of colonic polyps 03/12/2025 9:30 AM EDT documented as of this encounter Results * CT CHEST LUNG CANCER SCREENING ANNUAL (08/08/2017 11:25 AM EDT) Anatomical Region Laterality Modality Chest Computed Tomogra phy 08/08/2017 11:3 4 AM EDT Impressions 08/08/2017 11:52 AM EDT Stable appearance relative to prior imaging with emphysematous disease noted bilaterally. No pulmonary parenchymal mass lesion or acute infiltration is evident. No findings of concern for pulmonary malignancy are seen. Unchanged prominent coronary artery calcifications evident. LUNG RAD: LUNG RAD CATEGORY 1 - NEGATIVE TOTAL CTDIvol: 1.50 mGy POS [id number] Narrative 08/08/2017 11:52 AM EDT HISTORY: Low dose CT lung cancer screening. TECHNIQUE: Non-contrast, low dose axial CT with sagittal and coronal reconstructions. COMPARISON EXAM: CT chest June 23, 2016 This is a 62 year old patient referred for Low Dose CT Lung Cancer Screening (LDCT). The patient has no signs or symptoms of lung cancer and has a 30-pack year or greater history of tobacco smoking. They have quit smoking within the last 15 years and have a written order for LDCT from a qualified health professional following a lung cancer screening counseling that attests to shared decision-making having taken place before their first screening CT. The patient is also offered smoking cessation material at the time of the LDCT. Automated exposure control utilized. RESULTS: Right lung: There are emphysematous changes present similar to that seen previously. No significant nodularity or acute infiltration is seen. Minor parenchymal scarring in the right middle lobe is evident and is unchanged. Left lung: Emphysematous changes are again evident and are unchanged. No nodular mass lesion or acute infiltration is evident. Minor lingular density is stable. Mediastinum and linus: No mediastinal or hilar lymphadenopathy is seen. Coronary artery calcifications are present. Chest wall and thoracic inlet: No thyroid pathology is noted. No significant axillary lymphadenopathy is seen. Abdominal structures including liver, spleen, bowel, adrenals: Unremarkable Bones and other: Moderate degenerative changes are present in the thoracic spine. Procedure Note Yahir Lozada MD - 08/08/2017 HISTORY: Low dose CT lung cancer screening. TECHNIQUE: Non-contrast, low dose axial CT with sagittal and coronalreconstructions. COMPARISON EXAM: CT chest June 23, 2016 This is a 62 year old patient referred for Low Dose CT Lung CancerScreening (LDCT). The patient has no signs or symptoms of lung cancer andhas a 30-pack year or greater history of tobacco smoking. They have quitsmoking within the last 15 years and have a written order for LDCT from aqualified health professional following a lung cancer screening counselingthat attests to shared decision-making having taken place before theirfirst screening CT. The patient is also offered smoking cessationmaterial at the time of the LDCT. Automated exposure control utilized. RESULTS: Right lung: There are emphysematous changes present similar to that seenpreviously. No significant nodularity or acute infiltration is seen. Minorparenchymal scarring in the right middle lobe is evident and isunchanged. Left lung: Emphysematous changes are again evident and are unchanged. Nonodular mass lesion or acute infiltration is evident. Minor lingulardensity is stable. Mediastinum and linus: No mediastinal or hilar lymphadenopathy is seen.Coronary artery calcifications are present. Chest wall and thoracic inlet: No thyroid pathology is noted. Nosignificant axillary lymphadenopathy is seen. Abdominal structures including liver, spleen, bowel, adrenals:Unremarkable Bones and other: Moderate degenerative changes are present in thethoracic spine. IMPRESSION: Stable appearance relative to prior imaging with emphysematous diseasenoted bilaterally. No pulmonary parenchymal mass lesion or acuteinfiltration is evident. No findings of concern for pulmonary malignancyare seen. Unchanged prominent coronary artery calcifications evident. LUNG RAD: LUNG RAD CATEGORY 1 - NEGATIVE TOTAL CTDIvol: 1.50 mGy POS [id number] Cecilia Irizarry MD, MPH IMG CT CHEST Final Re sult documented in this encounter Visit Diagnoses Diagnosis Screening for malignant neoplasm of respiratory organ Special screening for malignant neoplasm of the respiratory organs Screening for malignant neoplasm of respiratory organ Special screening for malignant neoplasm of the respiratory organs History of colonic polyps Personal history of colonic polyps documented in this encounter Additional Health Concerns Infection Onset Date Last Indicated Resolved Time CoV-Risk 12/05/2019 12/06/2019 12/19/2019 3:34 AM EDT CoV-Risk Comment:Per note documentation 2024 2024 4 9:22 PM EDT documented as of this encounter Care Teams 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 It is not the complete legal health record.[facility]
--- OUTSIDE RECORDS SUMMARY | 2025-02-19 15:51 | XMS_ITS | Clinical Summary ---
Author Organization [facility] Address [address] [address] Phone Care Team Providers Care Account Manager [id number] Name Role Phone Cecilia Irizarry MD, MPH Primary Care Provider + Allergies Active Allergy Reactions Criticality Noted Date Comments Prednisone Other (See Comments) Low 09/21/2018 Hyperglycemia Medications metFORMIN (GLUCOPHAGE) 850 MG tablet Take 850 mg by mouth 3 (three) times a day with meals. Active sildenafil (VIAGRA) 100 mg tablet Take 100 mg by mouth daily as needed for erectile dysfunction. Active aspirin 81 MG EC tablet Take 81 mg by mouth daily. Active albuterol 90 mcg/actuation inhaler Inhale 2 puffs into the lungs every 6 (six) hours as needed for wheezing. Active moexipril (UNIVASC) 15 MG tablet Take 30 mg by mouth daily. Active chlorthalidone (HYGROTON) 50 MG tablet Take 50 mg by mouth daily. 09/03/2020 Active amLODIPine (NORVASC) 10 MG tablet Take 10 mg by mouth daily. 09/20/2020 Active LANTUS SOLOSTAR U-100 INSULIN 100 unit/mL (3 mL) InPn injection pen Inject 16 Units under the skin nightly at bedtime. 09/04/2020 Active cyanocobalamin, vitamin B-12, 1000 MCG tablet Take 1,000 mcg by mouth daily. 12/16/2020 Active BD RAYMUNDO 2ND GEN PEN NEEDLE 32 gauge x 5/32 Ndle USE TO INJECT FOUR TIMES DAILY 12/13/2020 Active latanoprost (XALATAN) 0.005 % ophthalmic solution INSTILL 1 DROP IN BOTH EYES AT BEDTIME 12/09/2021 Active FREESTYLE LITE Strp strips USE TO TEST BLOOD GLUCOSE THREE TIMES DAILY 12/28/2021 Active DEXCOM G7 SENSOR Agustina USE DIRECTED CHANGE EVERY 10 DAYS 08/09/2023 Active atorvastatin (LIPITOR) 40 MG tablet Take 40 mg by mouth nightly at bedtime. at bedtime. 07/26/2023 Active dorzolamide-vincent oloL (COSOPT) 22.3-6.8 mg/mL ophthalmic solution Place 1 drop into each eye 2 (two) times a day. 10/12/2023 Active HUMALOG KWIKPEN INSULIN 100 unit/mL kwikpen Inject 6 Units under the skin 3 (three) times a day with meals. May take up to 8 units 3 times a day for BS > 200. 01/05/2024 Active glucagon (BAQSIMI) 3 mg/actuation [place] Active TRESIBA FLEXTOUCH U-100 injection pen INJECT 16 UNITS UNDER THE SKIN EVERY NIGHT AT BEDTIME Active lisinopril (PRINIVIL,ZESTR IL) 40 MG tablet Take 1 tablet by mouth daily. Active TRELEGY ELLIPTA 200-62.5-25 mcg inhalerIndicati ons:Asthma-COPD overlap syndrome INHALE 1 PUFF BY MOUTH INTO THE LUNGS DAILY 180 each 3 01/20/2025 Active Active Problems Problem Noted Date Diagnosed Date Hypoglycemia 2024 Assessment & Plan (2024 10:01 PM EDT): Etiology is not immediately clear. No change in insulin or metformin dosing. No new medications. Had a short course of prednisone about a month ago, but no recent steroids. Also had a URI about two weeks ago, but no current symptoms suspicious for acute infectious cause for hypoglycemia. Urinalysis does show some WBC with only trace leukocyte esterase, but he is asymptomatic. Blood sugar has just started to improve on D10 infusion. Will try to d/c D10 shortly, continue to monitor blood sugar hourly over the next several hours. Will likely transition to the medical floor after several hours of stability. Continue to hold insulin and metformin for the time being. Pulmonary nodules 01/02/2022 Assessment & Plan (08/29/2023 10:43 AM EDT): These have remained stable and do not require longitudinal follow-up. Will continue with annual LDCT lung cancer screening. Assessment & Plan (05/04/2022 1:35 PM EST): Small nodules are stable. We will repeat LDCT next fall at an annual interval per lung cancer screening protocol. Assessment & Plan (01/02/2022 1:33 PM EDT): A new 4 mm left upper lobe pulmonary nodule was noted on the October 2021 LDCT at a 1 year interval (lung RADS category 3). Plan to repeat LDCT at a 6-month interval (April 2022). Asthma-COPD overlap syndrome 10/22/2020 Assessment & Plan (08/05/2024 2:06 PM EDT): Clinically stable on high-dose Trelegy, which we will continue. AEC is above 300. Will plan repeat PFT in 12 months. We discussed pulmonary rehab, patient has been active at home, climbs up a flight of stairs without difficulty and will plan to continue remaining active in the next month. Therefore, it was not felt indicated to refer him to the pulmonary rehab program today. He was educated about the availability and services offered through the pulmonary rehab program. Orders: Pulmonary Function Test Reason for Exam: Asthma, COPD; Type of PFT Test: Spirometry with bronchodilator, Lung Volumes, DLCO; Performing Location: [facility]; Future albuterol 90 mcg/actuation inhaler 2-4 puff albuterol 2.5 mg /3 mL (0.083 %) nebulizer solution 2.5 mg Assessment & Plan (2024 9:42 PM EDT): Followed by Dr. Murillo as an outpatient. Noted to have some RLL opacities on chest xray today which could represent pneumonia. However, he clinically does not have symptoms consistent with pneumonia. Could be residual findings from recent illness. Will monitor for development of fever or respiratory symptoms. Will likely require follow up outpatient chest imaging to document resolution. Assessment & Plan (08/29/2023 11:22 AM EDT): PFT have remained stable, with moderately severe fixed airflow limitation, on high-dose Trelegy which we will continue. Will plan repeat PFT and exhaled nitric oxide measurements in a year and reconvene thereafter. Assessment & Plan (05/04/2022 1:35 PM EST): We will continue high-dose Trelegy. I gave him samples to carry him through May 28. We will plan repeat PFT next fall at an annual interval and reconvene thereafter. Assessment & Plan (01/02/2022 1:59 PM EDT): He remains on high-dose Trelegy. Annual PFT were ordered but have not yet been performed, will obtain prior to follow-up visit here to try to delineate etiology of his progressive dyspnea. Assessment & Plan (12/31/2020 11:12 AM EDT): Doing very well on high-dose Trelegy, which we will continue. We will plan repeat PFT next spring at an annual interval prior to our next visit together. I have encouraged him to remain active. He is fully vaccinated against COVID-19. Assessment & Plan (10/22/2020 11:13 AM EDT): We will try switching from Flovent to high-dose Trelegy. Will consider 6-MDW vs. Walk w oximetry at next visit, and if ambulatory desaturations are noted, consider initiation of supplemental O2 (e.g. w Inogen POC), though we today discussed the results of the DUNLAP trial, which failed to demonstrate a mortality benefit in this patient population. Cough 10/22/2020 Assessment & Plan (12/31/2020 11:13 AM EDT): I suspect this may be multifactorial, but chronic bronchitis is a definite possibility. His chest CT reassuringly reveals no new lesion of concern, no bronchiectasis and no infiltrate. He denies heartburn or postnasal drip. We will continue to monitor clinically for now. Assessment & Plan (10/22/2020 11:15 AM EDT): The etiology for this is unclear. His most recent lung cancer CT was a few years ago, and was clear. Given the new cough over the past year, will obtain a diagnostic quality chest CT with IV contrast. He denies GERD or rhinitis / post-nasal drip. I do note that he is on an ANI-I, and this could be switched to an ARB, though will defer to PCP regarding this. Former smoker 10/22/2020 Overview (08/29/2023): Quit in 2010 after an 45-xyic-oslx history. Assessment & Plan (08/05/2024 2:06 PM EDT): Quit smoking in 2010 after an 63-dyqm-wbnd history. Will continue with annual lung cancer screening chest LDCT scans (recent scan was reassuring, lung RADS category 2). Orders: CT Chest Lung Cancer Screening Initial Or Annual; Future Assessment & Plan (08/29/2023 10:44 AM EDT): Will plan to continue with annual lung cancer screening chest LDCT. Recent study was interpreted as lung RADS category 2. Assessment & Plan (12/31/2020 11:13 AM EDT): We will pursue annual lung cancer screening next October, possibly for the next 4 years until he reaches 15 years since his last cigarette. Centrilobular emphysema 10/22/2020 Overview (12/31/2020): Normal alpha-1 antitrypsin phenotype (PI*MM). Assessment & Plan (08/05/2024 2:06 PM EDT): Normal alpha-1 antitrypsin phenotype (PI*MM). Assessment & Plan (10/22/2020 11:03 AM EDT): We will check A1AT phenotype. Encounters Date Type Department Care Team Description 01/19/2025 Refill [facility] [address] [place] [address] Lucius Murillo MD, MS Medication Refill 01/02/2025 11:12 AM EDT - 01/02/2025 11:59 PM EDT Hospital Encounter [facility] [address] [place] [address] Penny Serrano NP Discharge Disposition: Home or Self Care 01/02/2025 Transcribe Orders [facility] [address] [place] [address] Penny Serrano, HEIKE Hyperkalemia (Primary Dx) from Last 3 Months Immunizations Immunization Administration Dates Next Due COVID-19 (Pre-03/19) Pfizer Vaccine, mRNA, PF 03/16/2022 Influenza High-Dose Quadriva lent Preservative Free IM 03/29/2022,03/09/2021,02/27/2020,02/09 Pneumococcal conjugate PCV13 02/04/2015 Pneumococcal polysaccharide PPSV23 08/29/2021, Family History Medical History Relation Comments Diabetes Brother Lung disease Neg Hx Relation Status Comments Brother Social History Tobacco Use Types Packs/Day Years Used Date Smoking Tobacco: Former Cigarettes 2 40 1 971 - 2010 Smokeless Tobacco: Never Tobacco Cessation:Counseling Given: Not Answered Alcohol Use Standard Drinks/Week Comments Not Currently [...] with a working camera? Not on file Intimate Partner Violence Answer Date R ecorded Are you denied basic needs s uch as food, clothing, or medical care? No 2024 In the past 12 months have y ou been in a relationship with a person who hurts, threatens, or tries to control you? No 2024 Are you denied basic needs s uch as food, clothing, or medical care? No 2024 In the past 12 months have y ou been in a relationship with a person who hurts, threatens, or tries to control you? No 2024 Sex and Gender Information Value Date Recorded Sex Assigned at Not on file Legal Sex Male 9:58 PM EDT Gender Identity Not on file Sexual Orientation Not on file Last Filed Vital Signs Vital Sign Reading Time Taken Comments Blood Pressure 123/56 08/05/2024 1:31 PM EDT Pulse 87 08/05/2024 1:31 PM EDT Temperature 36.9 C (98.4 F) 08/05/2024 1:31 PM EDT Respiratory Rate 18 01/05/2024 11:35 AM EDT Oxygen Saturation 95% 08/05/2024 1:31 PM EDT Inhaled Oxygen Concentration - - Weight 70.8 kg (156 lb) 08/05/2024 1:31 PM EDT Height 167.6 cm (5' 6 ) 08/05/2024 1:31 PM EDT Body Mass Index 25.18 08/05/2024 1:31 PM EDT Plan of Treatment Upcoming Encounters Date Type Department Care Team (Late st Contact Info) Description 03/12/2025 Procedure Pass [facility] Endoscopy Admitting Dept Virtual Department [address] [place] [id number] 03/12/2025 9:30 AM EDT Hospital Encounter [facility] Endoscopy Admitting Dept Virtual Department [address] [place] [id number] Marquez Dobbs MD [address] [place] [phone] 03/12/2025 9:30 AM EDT - 03/12/2025 10:00 AM EDT Surgery [facility] Endoscopy Admitting Dept Virtual Department [address] [place] [id number] Marquez Dobbs MD [address] [place] [id number] COLONOSCOPY Scheduled Procedures Name Priority Associated Diagnoses Date/Ti me COLONOSCOPY History of colonic polyps 03/12/2025 9:30 AM EDT Health Maintenance Due Date Last Done Comments DEPRESSION SCREENING 1965 HEPATITIS C SCREENING 1971 COLOGUARD 1998 FIT TEST 1998 FOBT 1998 SIGMOIDOSCOPY 1998 VIRTUAL COLONOSCOPY 1998 RSV VACCINE (1 - Risk 60-74 years 1-dose series) 2013 LIPID PANEL 06/24/2013 06/24/2008 ABDOMINAL AORTIC ANEURYSM (AAA) SCREENING 2018 INFLUENZA VACCINE (#1) 2024 , 03/22/2023, 03/29/2022, Additional history exists COVID-19 VACCINE ( season) 2025 02/29/2024, 02/29/2024, 03/22/2023, Additional history exists LUNG CANCER SCREENING (LDCT Only) 07/29/2025 07/29/2024, 07/25/2023, 04/24/2022, Additional history exists CREATININE LEVEL 01/02/2026 01/02/2025, 02/2024, 2024, Additional history exists POTASSIUM LEVEL 01/02/2026 01/02/2025, 12/26, 2024, Additional history exists Adult Td,Tdap Booster 08/02/2027 08/01/2017, 008 COLONOSCOPY 09/09/2031 09/08/2021 COLORECTAL CANCER SCREENING 09/09/2031 ZOSTER VACCINES Completed 06/02/2019, 01/26, 09/16/2013 PNEUMOCOCCAL VACCINES (50+ years) Completed 08/29/2021, 02/04/2015, 03/23/2009 HEPATITIS A VACCINES Aged Out No long er eligible based on patient's age to complete this topic HIB VACCINES Aged Out No longer eligi ble based on patient's age to complete this topic MENINGOCOCCAL VACCINES (ACWY) Aged Out No longer eligible based on patient's age to complete this topic MENINGOCOCCAL VACCINES (B) Aged Out N o longer eligible based on patient's age to complete this topic Medical Devices Not on file Procedures Procedure Name Priority Date/Time Associated Diagnosis Comments BASIC METABOLIC PANEL Routine 01/02/2025 11:[address] CHEST LUNG CANCER SCREENING ANNUAL Routine 07/29/2024 11:27 AM EST Former smoker ENDOSCOPY, COLON 09/08/2021 9:24 AM EDT from Last 3 Months or Most Recently Relevant to Health Maintenance Results * (ABNORMAL) Basic metabolic panel (01/02/2025 11:29 AM EDT) SODIUM 139 133 - 146 mmol/L [facility] CHLORIDE 101 96 - 108 mmol/L [facility] POTASSIUM 5.4(H) 3.3 - 5.1 mmol/L [facility] Comment:Specimen slightly he molyzed, result may be falsely elevated. CO2 21 21 - 35 mmol/L [facility] BUN 25(H) 6 - 19 mg/dL [facility] CREATININE 0.90 0.5 - 1.5 mg/dL [facility] GLUCOSE 136(H) 70 - 99 mg/dL [facility] CALCIUM 9.8 8.4 - 10.3 mg/dL [facility] EGFR 91 >59 mL/min/1.7 3m2 [facility] Comment:Estimated glomerular filtration rate calculated using the CKD-EPI refit equation. ANION GAP 22(H) 10 - 20 mmol/L [facility] Blood 01/02/2025 11:2 9 AM EDT 01/02/2025 11:32 AM EDT us Penny Serrano NP LAB BLOOD ORDERABLES Final Re sult [address] [id number] * CT CHEST LUNG CANCER SCREENING ANNUAL (07/29/2024 11:27 AM EST) Anatomical Region Laterality Modality Chest Computed Tomogra phy 07/31/2024 8:50 AM EST Impressions 07/31/2024 9:11 AM EST Scattered small pulmonary nodules which are benign by size criteria (LUNG RADS Category 2). Given presence of tracheal/endobronchial secretions, suspect small parenchymal opacities or inflammatory. No lung consolidation. RECOMMENDATIONS: Continued annual screening low-dose chest CT. Narrative 07/31/2024 9:[address] CHEST LUNG CANCER SCREENING ANNUAL Referring clinician's provided indication for this examination in [facility]: Lung Cancer Screening - FORMER smoker, quit in past 15 yrs (20+ pk-yrs, age 50-80) - ICD-10 Z87.891 Review of the Electronic Medical Record reveals an additional history of: Benign-appearing small pulmonary nodules shown on previous chest CT imaging. COPD with PFTs showing moderate severity fixed area of flow limitation. Stable symptoms which are mostly triggered by insertion. Possible vascular disease status post angiography and left lower extremity stenting. TECHNIQUE: Low dose multidetector CT of the chest was performed without intravenous contrast using tailored dose modulation techniques. COMPARISON: Low-dose CT chest 07/25/2023 dating back to 08/08/2017. FINDINGS: Devices/Tubes/Lines: None. Lungs: Mild mixed attenuation to the lungs bilaterally. Mild centrilobular emphysematous changes. Chronic ozin-dm-whzqvzxe bronchial thickening bilaterally remains evident. There are scattered small parenchymal opacities bilaterally affecting left upper lobe posterior segment (series 4 image 98), left lower lobe superior segment (series 4 image 105) lower right upper lobe anterior segment series 4 image 162 and image 160) measuring 3.8, 3.3, 4.1 and 4.5 mm mean diameter respectively. Focal tracheal and left proximal endobronchial secretions evident. No spiculated mass. No mass which would warrant follow-up by size criteria. Linear opacities evident most confluent within the right middle lobe lateral segment and anterior inferior right upper lobe anterior segment. No lung consolidation. Pleura: Normal. No pleural effusion, focal pleural thickening or pneumothorax. Mediastinum: Stable. Coronary artery calcification, most confluent within the proximal LAD. No mediastinal mass, focal fluid collection or pericardial effusion. Lymph Nodes: Normal. No enlarged supraclavicular, axillary, mediastinal, or hilar lymph nodes. Upper Abdomen: Normal. Absence of intravenous contrast and low dose technique limits sensitivity for detecting small lesions, solid organ and vascular findings. No abnormality detected in the visualized upper abdomen. Chest Wall: Normal. No subcutaneous mass or fluid collection. Bones: No acute bony abnormality. Procedure Note Amarjit Baron MD - 07/31/2024 CT CHEST LUNG CANCER SCREENING ANNUAL Referring clinician's provided indication for this examination in [facility]:Lung Cancer Screening - FORMER smoker, quit in past 15 yrs (20+ pk-yrs,age 50-80) - ICD-10 Z87.891 Review of the Electronic Medical Record reveals an additional history of:Benign-appearing small pulmonary nodules shown on previous chest CTimaging. COPD with PFTs showing moderate severity fixed area of flowlimitation. Stable symptoms which are mostly triggered by insertion.Possible vascular disease status post angiography and left lower extremitystenting. TECHNIQUE: Low dose multidetector CT of the chest was performed withoutintravenous contrast using tailored dose modulation techniques. COMPARISON: Low-dose CT chest 07/25/2023 dating back to 08/08/2017. FINDINGS: Devices/Tubes/Lines: None. Lungs: Mild mixed attenuation to the lungs bilaterally. Mild centrilobularemphysematous changes. Chronic pkly-ad-sgomggfq bronchial thickeningbilaterally remains evident. There are scattered small parenchymalopacities bilaterally affecting left upper lobe posterior segment (series4 image 98), left lower lobe superior segment (series 4 image 105) lowerright upper lobe anterior segment series 4 image 162 and image 160)measuring 3.8, 3.3, 4.1 and 4.5 mm mean diameter respectively. Focaltracheal and left proximal endobronchial secretions evident. No spiculatedmass. No mass which would warrant follow-up by size criteria. Linearopacities evident most confluent within the right middle lobe lateralsegment and anterior inferior right upper lobe anterior segment. No lungconsolidation. Pleura: Normal. No pleural effusion, focal pleural thickening orpneumothorax. Mediastinum: Stable. Coronary artery calcification, most confluent withinthe proximal LAD. No mediastinal mass, focal fluid collection orpericardial effusion. Lymph Nodes: Normal. No enlarged supraclavicular, axillary, mediastinal,or hilar lymph nodes. Upper Abdomen: Normal. Absence of intravenous contrast and low dosetechnique limits sensitivity for detecting small lesions, solid organ andvascular findings. No abnormality detected in the visualized upperabdomen. Chest Wall: Normal. No subcutaneous mass or fluid collection. Bones: No acute bony abnormality. IMPRESSION: Scattered small pulmonary nodules which are benign by size criteria (LUNGRADS Category 2). Given presence of tracheal/endobronchial secretions,suspect small parenchymal opacities or inflammatory. No lung consolidation. RECOMMENDATIONS: Continued annual screening low-dose chest CT. us Lucius Murillo MD, MS IMG CT CHEST Final Re sult * ENDOSCOPY, COLON (09/08/2021 9:24 AM EDT) Narrative Transcriptions Marquez Dobbs MD - 09/08/2021 9:24 AM EDT Patient Name: Kedar Mccord Attending MD:: MARQUEZ DOBBS MD Procedure Date: 09/08/2021 9:24 AM Date of : 1955 Age: 66 Admit Type: Outpatient Gender: Male Room: [place] [address] Referring MD: Cecilia Irizarry MD Exam Type: Colonoscopy Indications: High risk colon cancer surveillance: Personalhistory of colonic polyps, Last colonoscopy: January2016 Medications: Propofol per Anesthesia Procedure: Informed consent was obtained from the patientafter discussion of the indications, limitations, alternatives, benefits, and risks of the procedure. Risks specifically discussed include but are not limited to medication reactions, missed lesions, bleeding, perforation, or the need for emergent surgery. Throughout the procedure, the patient's blood pressure, pulse, end-tidal CO2, and oxygensaturations were monitored continuously. The Olympus adult variable colonoscope CF-[id number] #2 was introduced through the anus and advanced to the terminal ileum, with identification of theappendiceal orifice and IC valve. The terminal ileum, ileocecal valve, appendiceal orifice, and rectum were photographed. The colonoscopy was performed without difficulty. The patient tolerated the procedurewell. The quality of the bowel preparation was good. The bowel preparation used was GoLYTELY via split dose instruction. Complications: No immediate complications. Estimated blood loss:None. Findings: The perianal and digital rectal examinations were normal. Pertinent negatives include normal prostate (size, shape, and consistency). The retroflexed view of the distal rectum and anal verge was normal and showed no anal or rectal abnormalities. The colon (entire examined portion) wassignificantly redundant. A small polyp was found in the sigmoid colon. The polyp was sessile. The polyp was removed with acold snare. Resection and retrieval were complete. Two sessile polyps were found in the splenicflexure and transverse colon. The polyps were 12 to 14 mmin size. These polyps were removed with a hot snare. Resection and retrieval were complete. The exam was otherwise without abnormality. The terminal ileum appeared normal. Retroflexion in the right colon was performed. Impression: - The distal rectum and anal verge are normal on retroflexion view. - Redundant colon. - One small polyp in the sigmoid colon, removedwith a cold snare. Resected and retrieved. - Two 12 to 14 mm polyps at the splenic flexure andin the transverse colon, removed with a hot snare. Resected and retrieved. - The examination was otherwise normal. - The examined portion of the ileum was normal. Recommendation: - No aspirin, ibuprofen, naproxen, or other non-steroidal anti-inflammatory drugs for 2 weeks after polyp removal. - If the pathology report reveals adenomatoustissue, then repeat the colonoscopy for surveillance in 3 years. - If the pathology report reveals no adenomatous tissue, then repeat the colonoscopy forsurveillance in 5 years. MARQUEZ DOBBS MD 09/08/2021 10:01:01 AM This report has been signed electronically. Number of Addenda: 0 Note Initiated On: 09/08/2021 9:24 AM Procedure Code(s): --- Professional --- 26173, Colonoscopy, flexible; with removal of tumor(s), polyp(s), or other lesion(s) by snare technique --- Technical --- 34089, Colonoscopy, flexible; with removal of tumor(s), polyp(s), or other lesion(s) by snare technique Diagnosis Code(s): --- Professional --- K63.5, Polyp of colon Z86.010, Personal history of colonic polyps Q43.8, Other specified congenital malformations of intestine --- Technical --- K63.5, Polyp of colon Z86.010, Personal history of colonic polyps Q43.8, Other specified congenital malformations of intestine CPT copyright 2020 [employer]. All rights reserved. The codes documented in this report are preliminary and upon kerfer machine operator reviewmay be revised to meet current compliance requirements. Procedure Date: 09/08/2021 9:24:[address] [place] [id number] Cecilia Irizarry MD, MPH GI PROCEDURE ORDERABLES Final Result from Last 3 Months or Most Recently Relevant to Health Maintenance Insurance [employer] MEDEX SUPPLEMENT [facility] Address: [facility] [id number] [place] [address] MEDICARE PART A & B [employer] CROSS MEDEX SUPPLEMENT MEDICARE PART A & B [employer] CROSS MEDEX SUPPLEMENT MEDICARE PART A & B [employer] MEDEX SUPPLEMENT MEDICARE PART A & B [employer] SUPPLEMENT MEDICARE PART A & B [employer] MED[employer] SUPPLEMENT MEDICARE PART A & B [employer] MEDEX SUPPLEMENT MEDICARE PART A & B ([place]) [address] MEDEX SUPPLEMENT MEDICARE PART A & B BLUE CROSS MEDEX SUPPLEMENT MEDICARE PART A & B Advance Directives For more information, please contact: [phone] (9AM - 5PM Deborah/[facility], Sunday-Sunday) * Full Code (Latest Code Status on File) Date Activated Date Inactivated Comments 2024 9:29 PM Question Answer Comments Code Status Confirmed With: Patient Care Teams Account Manager B2B Relationship Specialty Start Date End Date Cecilia Irizarry MD, MPH [address] [place] [phone] PCP - General Family Medicine 06/25/23 Additional Source Comments The information contained in this document represents components of the legal health record. It is not the complete legal health record.[facility]
== END 2025-02-19 11:09 | disposition home or self-care (01) ==
LOC: HO.10HDL 11:08
PROVIDERS: Visit Provider Physician Assistant Medical
DX: E78.5 Hyperlipidemia, unspecified (principal); E11.51 Type 2 diabetes mellitus with diabetic peripheral angiopathy without gangrene; Z91.89 Other specified personal risk factors, not elsewhere classified; Z79.4 Long term (current) use of insulin
CPT/HCPCS: 36415; 80061; 82565; 82607; 83036; 84450; 84460

== ENCOUNTER 2025-03-03 12:36 | Outpatient (AMB) | payer MEDICARE, SELFPAY ==
--- OUTSIDE RECORDS SUMMARY | 2025-02-26 11:15 | XMS_ITS | Encounter Summary ---
Author Organization [facility] Address [address] [facility] [address] [place] [address] Phone Care Team Providers Care Shoe Laster Name Role Phone Cecilia Irizarry MD, MPH Primary Care Provider + Encounter Details Date Type Department Care Team ([facility] st Contact Info) Description 02/26/2025 11:15 AM EDT Pre-Admission Testing Pre Procedure Evaluation [address] [place] [address] Hu Dobbs MD [address] [place] [id number] [email or web address] Social History Tobacco Use Types Packs/Day Years [...] as food, clothing, or medical care? No 02/26/2025 In the past 12 months have y ou been in a relationship with a person who hurts, threatens, or tries to control you? No 02/26/2025 Are you denied basic needs s uch as food, clothing, or medical care? No 02/26/2025 In the past 12 months have y ou been in a relationship with a person who hurts, threatens, or tries to control you? No 02/26/2025 Sex and Gender Information Value Date Recorded Sex Assigned at Not on file Legal Sex Male 9:58 PM EDT Gender Identity Not on file Sexual Orientation Not on file documented as of this encounter Last Filed Vital Signs Vital Sign Reading Time Taken Comments Blood Pressure - - Pulse - - Temperature - - Respiratory Rate - - Oxygen Saturation - - Inhaled Oxygen Concentration - - Weight 70.8 kg (156 lb) 02/26/2025 11:36 AM EDT Height 167.6 cm (5' 6 ) 02/26/2025 11:36 AM EDT Body Mass Index 25.18 02/26/2025 11:36 AM EDT documented in this encounter Progress Notes * Nery Mcmahan RN - 02/26/2025 11:15 AM EDT This preprocedure call occurred on February 26, 2025. Reviewed following Pre Procedure Covid Instructions: To avoid spreading infection to others in household and community: - Keep your distance from others (about 6 feet or 2 meters). - Separate yourself from other people and animals in your home. This includes staying in a single room and using a separate bathroom if available (Wear a facemask, if available, when you are around other people). - Cover your coughs and sneezes. - Wash your hands frequently. - Avoid sharing personal household items, including eating and drinking utensils, towels, or bedding. - Clean all high-touch surfaces (such as counters, tabletops, doorknobs, phones, toilets, keyboards) every day with household cleaning spray or wipes. Reviewed prep instructions. All questions answered. Ride home arranged. Patient verbalized understanding Case Request: No orders of the defined types were placed in this encounter. * Nery Mcmahan RN - 02/26/2025 11:15 AM EDT States he is just getting over a cold-denies any fever or prod cough. Instructed to call office is symptoms worsen or don't improve, he gets a fever, or gets dx with pneumonia documented in this encounter Plan of Treatment Upcoming Encounters Date Type Department Care Team (Late st Contact Info) Description 03/12/2025 Procedure Pass [facility] Endoscopy Admitting Dept Virtual Department [address] [place] [phone] 03/12/2025 9:30 AM EDT Hospital Encounter [facility] Endoscopy Admitting Dept Virtual Department [address] [place] [phone] Hu Dobbs MD [address] [address] [email or web address] 03/12/2025 9:30 AM EDT - 03/12/2025 10:00 AM EDT Surgery [facility] Endoscopy Admitting Dept Virtual Department [address] [place] [phone] Hu Dobbs MD [address] [address] [email or web address] COLONOSCOPY Scheduled Procedures Name Priority Associated Diagnoses Date/Ti me COLONOSCOPY History of colonic polyps 03/12/2025 9:30 AM EDT documented as of this encounter Visit Diagnoses Not on filedocumented in this encounter Care Teams Shoe Laster Relationship Specialty Start Date End Date Cecilia Irizarry MD, MPH [address] [place] [address] PCP - General Family Medicine 06/25/23 documented as of this encounter Additional Source Comments The information contained in this document represents components of the legal health record. It is not the complete legal health record.[facility]
--- NOTE | 2025-03-03 12:47 | A.OFFVIS_ITS ---
Vital Signs 03/03/25 12:48 03/03/25 13:13 Weight 154 lb 5.177 oz BP 120/68 Blood Pressure Location Rt brachial Position Sitting Pulse 87 Pulse Source Pulse Oximeter Pulse Oximetry (%) 92 94 Oxygen Delivery Method Room Air Intake Visit Reasons: Type II diabetes Intake Note: Patient present today to follow up on Type 2 Diabetes Mellitus. Last Diabetic Eye exam: 09/2024 Last Podiatry Visit: Does not see a Closing Machine Operator Random Glucose: 188 mg/dL Hgb A1C: 7.6% 02/19/2025 Aluminum Boat Assembly Supervisor Required: No Accompanied by: Self / Same As Patient Allergies oxycodone (From Percodan) Adverse Reaction (Intermediate, Verified 03/03/25 12:50) hyperglycemia Seasonal Allergy (Unknown, Uncoded 03/03/25 12:50) Sneezing Medication List - Last Reconciled 03/03/25 by SHEREE Pérez albuterol sulfate 90 mcg/actuation 2 puffs inhalation Q4H PRN amlodipine 10 mg PO DAILY aspirin (Adult Aspirin Regimen) 81 mg PO DAILY atorvastatin 40 mg PO BEDTIME blood sugar diagnostic As directed blood sugar diagnostic (FreeStyle Lite Strips) As directed to check glucose up to 5 times daily blood-glucose meter (FreeStyle Lite Meter kit) as directed to monitor blood glucose blood-glucose sensor (Numote G7 Sensor device) USE DIRECTED, CHANGE SENSOR EVERY 10 DAYS chlorthalidone 50 mg PO DAILY cyanocobalamin (vitamin B-12) 1,000 mcg PO DAILY dorzolamide-timolol 22.3-6.8 mg/mL 1 drp ophthalmic (eye) BID gvfmsxentql-jrncoogtv-mkwsmlzc 200-62.5-25 mcg (Trelegy Ellipta) 1 inh inhalation DAILY glucagon 3 mg/actuation (Baqsimi) 3 mg intranasal ONCE glucose (Dex4 Glucose Quick Dissolve) 16 grams (4 x 4 gram) PO Q15M PRN insulin admin supplies (InPen (for Humalog) subcutaneous) As directed insulin degludec (Tresiba FlexTouch U-100 insulin) 16 units (0.16 mL) subcut BEDTIME insulin lispro (Humalog KwikPen (U-100) Insulin) 1 sliding scale dose subcut USEASDIRECTD lancets (FreeStyle Lancets) Use as directed to monitor glucose up to 5 times daily losartan 100 mg PO DAILY metformin 850 mg PO TID pen needle, diabetic As directed to inject insulin four times daily sildenafil 100 mg PO DAILY PRN sodium polystyrene sulfonate 15 grams PO DAILY 2 days HPI Comments Details: This is a 69-year-old male with a past medical history of CAD, PAD and type 2 diabetes presenting for diabetic management. His brother and sister had type 2 diabetes. Patient diagnosed in his 40s with Type II DM. Reviewed Dexcom data See GMI 7.5% 11% very high 31% high 58% in range 0% hypoglycemia My interpretation is that he is having nocturnal hypoglycemia. He admits that he is having a late night snack of crackers and cheese every night. Hemoglobin A1c 7.6%. Current medication regimen: Tresiba 16 units evening, humalog sliding scale before meals, metformin 850 mg 3 times a day. Blood sugar under 150: no humalog Blood sugar 150-199 mg/dL take 2 units Blood sugar 200-249 mg/dL take 4 units Blood sugar 250-299 mg/dL take 8 units Blood sugar 300-349 mg/dL take 10 units Blood sugar 350-399 mg/dL take 12 units Blood sugar >/=400 mg /dL take 14 units Compliance issues: None. Hypoglycemia symptoms: shaky and weak, corrects with juice. 1-2 episodes per month. He had a profound episode of hypoglycemia resulting in seizure and unresponsive ness over the Summer of 2023. Insurance covered [employer]. He also has glucose tablets. Hyperglycemia symptoms: none Eye exam: Up-to-date Microvascular complications: none Macrovascular complications: CAD, PAD (iliac stents). Hypertension: treated with Lisinopril 40 mg, amlodipine 10 mg daily, chlorthalidone 50 mg daily. His blood pressure is well-controlled. Hyperlipidemia: treated with atorvastatin 40 mg daily. LDL is less than 70. ROS: Constitutional: No unexplained weight loss, fever, chills, fatigue or night sweats. Eyes: No vision changes, blurry vision, double vision, eye pain, eye redness, eye discharge. Respiratory: No shortness of breath Neurologic: Denies numbness or tingling or pain in the extremities. Cardiovascular: No chest pain, Skin: No rash or open wounds. Endocrine: No cold or heat intolerance. No polyuria or polydipsia. Physical exam: Constitutional: Alert, in no distress. Eyes: Pupils are equal, round and reactive to light. Extraocular muscles intact. Neck: Supple, Full range of motion. No lymphadenopathy. No palpable thyroid masses. Respiratory: Clear to auscultation. Cardiovascular: S1 S2 regular. No murmurs. Right foot: Warm and well perfused. No clubbing, cyanosis or edema. Intact DP pulse. Decreased vibratory sensation. Intact sensation to monofilament. No open wounds. Left foot: Warm and well perfused. No clubbing, cyanosis or edema. Intact DP pulse. Decreased vibratory sensation. Intact sensation to monofilament. No open wounds. [facility] Medical History (Updated 03/03/25 @ 13:23 by SHEREE Pérez) Elevated vitamin B12 level Hypoglycemia Type 2 diabetes mellitus with circulatory disorder, with long-term current use of insulin Carotid stenosis Diabetes Surgical History S/P angiogram of extremity (12/27/22) History of cardiac cath History of CEA (carotid endarterectomy) Family History Father No problems noted. Mother No problems noted. Daughter No problems noted. Son No problems noted. Social History Alcohol intake: former Year quit: 1998 Patient Tobacco Use Status: Former Tobacco user Tobacco use type: Cigarette Years Smoked: 35 +/- Physical Exam Vital Signs: Last Vital Signs Pulse 87 03/03/25 12:48 BP 120/68 03/03/25 12:48 Pulse Ox 92 03/03/25 12:48 Oxygen Delivery Method Room Air 03/03/25 12:48 Office Procedures Glucose Monitoring Details Details: See HPI 52919 - Glucose monitoring, continuous-physician I&R Procedure code (CPT) selection complete Results Reviewed Results Reviewed: Laboratory Last Values Glucose (Clinic) 188 mg/dL (60-115) H 03/03/25 12:52 Laboratory Tests 02/19/25 11:15 Creatinine 1.10 Estimated GFR > 60 Hemoglobin A1c % 7.6 H AST 24 ALT 16 Triglycerides 54 Cholesterol 121 LDL Cholesterol, Calc 62 HDL Cholesterol 49 Vitamin B12 1342 H Assessment & Plan Assessment & Plan (1) Type 2 diabetes mellitus with circulatory disorder, with long-term current use of insulin: Code(s): E11.59 - Type 2 diabetes mellitus with other circulatory complications; Z79.4 - longterm (current) use of insulin Category: Medical Qualifiers: Diabetes mellitus complication detail: with peripheral angiopathy without gangrene Qualified Code(s): E11.51 - Type 2 diabetes mellitus with diabetic peripheral angiopathy without gangrene; Z79.4 - 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 transplanted heart: [place] heart Associated angina: without angina Qualified Code(s): I25.10 - Atherosclerotic heart disease of [place] coronary artery without angina pectoris (4) Elevated vitamin B12 level: Code(s): R79.89 - Other specified abnormal findings of blood chemistry Category: Medical Plan: Decreased vitamin B12 supplement to every 1000 mcg other day. Plan In summary this is a 70-year-old male with suboptimally controlled type 2 diabetes basal-bolus insulin regimen and metformin. He has glucose tablets at home and Baqsimi. We reviewed treatment of hypoglycemia. Current medication regimen: Tresiba 16 units evening, humalog sliding scale before meals, metformin 850 mg 3 times a day. Blood sugar under 150: no humalog Blood sugar 150-199 mg/dL take 2 units Blood sugar 200-249 mg/dL take 4 units Blood sugar 250-299 mg/dL take 8 units Blood sugar 300-349 mg/dL take 10 units Blood sugar 350-399 mg/dL take 12 units Blood sugar >/=400 mg /dL take 14 units We discussed decreasing carbs and sugars in the evening at his last appointment, but he did not implement this change therefore he will administer 2 units of Humalog 15 minutes before the late night snack. If his blood sugar is 1 to 2 hours after the late night snack or still greater than 180 he will increase to 3-4 units before the snack. I also gave him a list of diabetic friendly snacks from the [place] [employer]. We discussed SGLT2 and GLP 1 medications given his history of cardiovascular disease. We discussed addition of these medications may further decrease his insulin requirement, but he declined changing his medication regimen. He is followed by Cardiology. He denies anginal symptoms. His blood pressure and cholesterol are well-controlled. Continue current regimen. Follow up in 3 months for type 2 diabetes. Orders: Orders AMB Glucose Monitoring Today E11.9 - Type 2 diabetes mellitus without complications Patient Instructions: Current medication regimen: Tresiba 16 units evening, humalog sliding scale bef ore meals, metformin 850 mg 3 times a day. Blood sugar under 150: no humalog Blood sugar 150-199 mg/dL take 2 units Blood sugar 200-249 mg/dL take 4 units Blood sugar 250-299 mg/dL take 8 units Blood sugar 300-349 mg/dL take 10 units Blood sugar 350-399 mg/dL take 12 units Blood sugar >/=400 mg /dL take 14 units Please try taking 2 units of humalog 15 minutes before your late night snack. If your blood sugars 1-2 hours after late night snack are still over 180, increase to 3 to 4 units before the snack. Coding Level of Care Code Est Pt Level 4 (34129) Diagnoses Type 2 diabetes mellitus with diabetic peripheral angiopathy without gangrene, with long-term current use of insulin E11.51; Z79.4 Diabetes mellitus complication detail: with peripheral angiopathy without gangrene Hypoglycemia E16.2 Coronary artery disease involving [place] coronary artery of [place] heart without angina pectoris I25.10 Coronary Disease-Associated Artery/Lesion type: [place] artery [place] vs. transplanted heart: [place] heart Associated angina: without angina Elevated vitamin B12 level R79.89 CPT Codes Details - CPT: 68744 - Glucose monitoring, continuous-physician I&R ([id number])
[2025-03-03 12:48] VITALS: BP 120/68; PULSE 87; O2SAT 92
[2025-03-03 12:57] LABS: Glucose, Whole Blood 188 mg/dL (60-115)
[2025-03-03 13:13] VITALS: O2SAT 94
--- OUTSIDE RECORDS SUMMARY | 2025-03-03 15:27 | XMS_ITS | Encounter Summary ---
Author Organization [facility] Address [address] [facility] [address] [place] [phone] Phone Care Team Providers Care Heavy Antiarmor Weapons Infantryman Name Role Phone Cecilia Irizarry MD, MPH Primary Care Provider + Cecilia Irizarry MD, MPH Primary Care Provider + Encounter Details Date Type Department Care Team (Late st Contact Info) Description 10/06/2020 Transcribe Orders [facility]FT [facility] [address] [place] [address] Cecilia Irizarry MD, MPH [address] [place], [place] [phone] [email or web address] Social History Tobacco Use Types Packs/Day Years [...] Pass [facility] Endoscopy Admitting Dept Virtual Department [address] [place] [address] 03/12/2025 9:30 AM EDT Hospital Encounter [facility] Endoscopy Admitting Dept Virtual Department [address] [place] [address] Hu Dobbs MD [address] [place] [address] [phone] 03/12/2025 9:30 AM EDT - 03/12/2025 10:00 AM EDT Surgery [facility] Endoscopy Admitting Dept Virtual Department [address] [place] [address] Hu Dobbs MD [address] [address] COLONOSCOPY Scheduled Procedures Name Priority Associated Diagnoses Date/Ti me COLONOSCOPY History of colonic polyps 03/12/2025 9:30 AM EDT documented as of this encounter Visit Diagnoses Not on filedocumented in this encounter Additional Health Concerns Infection Onset Date Last Indicated Resolved Time CoV-Risk Comment:Per note documentation 2024 2024 9:22 PM EDT documented as of this encounter Care Teams Heavy Antiarmor Weapons Infantryman Relationship Specialty Start Date End Date Cecilia Irizarry MD, MPH [address] [place] [address] [email or web address] PCP - General Family Medicine 11/23/17 06/24/23 Cecilia Irizarry MD, MPH [address] [place] [address] [email or web address] PCP - General Family Medicine 06/25/23 documented as of this encounter Additional Source Comments The information contained in this document represents components of the legal health record. It is not the complete legal health record.[facility]
--- OUTSIDE RECORDS SUMMARY | 2025-03-03 15:27 | XMS_ITS | Encounter Summary ---
Author Organization [facility] Address [address] [address] Phone Care Team Providers Care Soldering Machine Feeder Name Role Phone Cecilia Irizarry MD, MPH Primary Care Provider + Cecilia Irizarry MD, MPH Primary Care Provider + Reason for Referral * Consultation (Elective) - Closed Specialty Diagnoses / Procedures Referred By Contac t Referred To Contact Pulmonary Disease Cecilia Irizarry MD, MPH Phone: tel: fax: [email or web address] [facility] [address] [place] [address] Phone: tel: Referral ID Status Reason Start Date Expiration Date Visits Re quested Visits Authorized [id number] Closed 09/08/2020 09/08/2021 1 1 Encounter Details Date Type Department Care Team (Late st Contact Info) Description 09/08/2020 Transcribe Orders [facility] Pulmonary, Allergy and Critical Care Medicine 10 [place] [address] Cecilia Irizarry MD, MPH [address] [place], [place] [phone] [email or web address] Social History Tobacco Use Types Packs/Day Years [...] st Contact Info) Description 03/12/2025 Procedure Pass [facility] Endoscopy Admitting Dept Virtual Department [address] [place] [phone] 03/12/2025 9:30 AM EDT Hospital Encounter [facility] Endoscopy Admitting Dept Virtual Department [address] [place] [address] Hu Dobbs MD [address] [address] 03/12/2025 9:30 AM EDT - 03/12/2025 10:00 AM EDT Surgery [facility] Endoscopy Admitting Dept Virtual Department [address] [place] [address] Hu Dobbs MD [address] [place] [address] COLONOSCOPY Scheduled Procedures Name Priority Associated Diagnoses Date/Ti me COLONOSCOPY History of colonic polyps 03/12/2025 9:30 AM EDT Scheduled Referrals Name Type Priority Associated Diagnoses Order Schedule Ambulatory referral to [facility] Pulmonology Outpatient Referral Routine Ordered: 09/08/2020 documented as of this encounter Visit Diagnoses Not on filedocumented in this encounter Additional Health Concerns Infection Onset Date Last Indicated Resolved Time CoV-Risk Comment:Per note documentation 2024 2024 9:22 PM EDT documented as of this encounter Care Teams Soldering Machine Feeder Relationship Specialty Start Date End Date Cecilia Irizarry MD, MPH [address] [place] [address] PCP - General Family Medicine 11/23/17 06/24/23 Cecilia Irizarry MD, MPH [address] [place] [address] [email or web address] PCP - General Family Medicine 06/25/23 documented as of this encounter Additional Source Comments The information contained in this document represents components of the legal health record. It is not the complete legal health record.[facility]
--- OUTSIDE RECORDS SUMMARY | 2025-03-03 15:27 | XMS_ITS | Encounter Summary ---
Author Organization [facility] Address [address] [facility] [address] [place] [phone] Phone Care Team Providers Care Deputy Clerk Name Role Phone Cecilia Irizarry MD, MPH Primary Care Provider + Cecilia Irizarry MD, MPH Primary Care Provider + Encounter Details Date Type Department Care Team (Late Contact Info) Description 05/04/2022 Procedure Pass [facility], Ct Scan - [address] [address] Social History Tobacco Use Types Packs/Day Years [...] Pass [facility] Endoscopy Admitting Dept Virtual Department [address] [place] [phone] 03/12/2025 9:30 AM EDT Hospital Encounter [facility] Endoscopy Admitting Dept Virtual Department [address] [place] [phone] Hu Dobbs MD [address] [place] [phone] 03/12/2025 9:30 AM EDT - 03/12/2025 10:00 AM EDT Surgery [facility] Endoscopy Admitting Dept Virtual Department [address] [place] [address] Hu Dobbs MD [address] [address] [email or web address] COLONOSCOPY Scheduled Procedures Name Priority Associated Diagnoses Date/Ti me COLONOSCOPY History of colonic polyps 03/12/2025 9:30 AM EDT documented as of this encounter Visit Diagnoses Not on filedocumented in this encounter Additional Health Concerns Infection Onset Date Last Indicated Resolved Time CoV-Risk Comment:Per note documentation 2024 2024 9:22 PM EDT documented as of this encounter Care Teams Deputy Clerk Relationship Specialty Start Date End Date Cecilia Irizarry MD, MPH [address] [place] [address] [email or web address] PCP - General Family Medicine 11/23/17 06/24/23 Cecilia Irizarry MD, MPH [address] [place] [address] [email or web address] PCP - General Family Medicine 06/25/23 documented as of this encounter Additional Source Comments The information contained in this document represents components of the legal health record. It is not the complete legal health record.[facility]
--- OUTSIDE RECORDS SUMMARY | 2025-03-03 15:27 | XMS_ITS | Encounter Summary ---
Author Organization [facility] Address [address] [facility] [address] [place] [address] Phone Care Team Providers Care Fire Lieutenant Marine Name Role Phone Cecilia Irizarry MD, MPH Primary Care Provider + Encounter Details Date Type Department Care Team (Late Contact Info) Description 08/29/2023 Procedure Pass [facility], Ct Scan - [facility] [address] [place] [address] Social History Tobacco Use Types Packs/Day Years [...] Pass [facility] Endoscopy Admitting Dept Virtual Department [address] [place] [address] 03/12/2025 9:30 AM EDT Hospital Encounter [facility] Endoscopy Admitting Dept Virtual Department 30 [place] [address] Hu Dobbs MD [address] [address] [email or web address] 03/12/2025 9:30 AM EDT - 03/12/2025 10:00 AM EDT Surgery [facility] Endoscopy Admitting Dept Virtual Department 30 [place] [address] Hu Dobbs MD [address] [address] [email or web address] COLONOSCOPY Scheduled Procedures Name Priority Associated Diagnoses Date/Ti me COLONOSCOPY History of colonic polyps 03/12/2025 9:30 AM EDT documented as of this encounter Visit Diagnoses Not on filedocumented in this encounter Additional Health Concerns Infection Onset Date Last Indicated Resolved Time CoV-Risk Comment:Per note documentation 2024 2024 9:22 PM EDT documented as of this encounter Care Teams Fire Lieutenant Marine Relationship Specialty Start Date End Date Cecilia Irizarry MD, MPH [address] [place] [address] [email or web address] PCP - General Family Medicine 06/25/23 documented as of this encounter Additional Source Comments The information contained in this document represents components of the legal health record. It is not the complete legal health record.[facility]
--- OUTSIDE RECORDS SUMMARY | 2025-03-03 15:27 | XMS_ITS | Encounter Summary ---
Author Organization [facility] Address [address] [facility] [address] [place] [address] Phone Care Team Providers Care Flatwork Supervisor Name Role Phone Cecilia Irizarry MD, MPH Primary Care Provider + Cecilia Irizarry MD, MPH Primary Care Provider + Encounter Details Date Type Department Care Team (Latest Contact Info) Description 10/11/2022 Transcribe Orders Virtual Department 30 [place] [address] Cecilia Irizarry MD, MPH 70 [place] [address] [email or web address] Peripheral vascular disease, unspecified (Primary Dx) Social [...] [facility] Endoscopy Admitting Dept Virtual Department 30 [place] [address] 03/12/2025 9:30 AM EDT Hospital Encounter [facility] Endoscopy Admitting Dept Virtual Department 30 [place] [address] Hu Dobbs MD [address] [address] [email or web address] 03/12/2025 9:30 AM EDT - 03/12/2025 10:00 AM EDT Surgery [facility] Endoscopy Admitting Dept Virtual Department 30 [place] [address] Hu Dobbs MD [address] [address] [email or web address] COLONOSCOPY Scheduled Procedures Name Priority [...] documented as of this encounter Care Teams Flatwork Supervisor Relationship Specialty Start Date End Date Cecilia Irizarry MD, MPH [address] [place] [address] [email or web address] PCP - General Family Medicine 11/23/17 06/24/23 Cecilia Irizarry MD, MPH 70 [place] [address] [email or web address] PCP - General Family Medicine 06/25/23 documented as of this encounter Additional Source Comments The information contained in this document represents components of the legal health record. It is not the complete legal health record.[facility]
--- OUTSIDE RECORDS SUMMARY | 2025-03-03 15:27 | XMS_ITS | Encounter Summary ---
Author Organization [facility] Address [address] [facility] [address] [place] [address] Phone Care Team Providers Care End Matcher Name Role Phone Cecilia Irizarry MD, MPH Primary Care Provider + Cecilia Irizarry MD, MPH Primary Care Provider + Encounter Details Date Type Department Care Team (Late Contact Info) Description 10/22/2020 Procedure Pass [facility], Ct Scan - [address] [address] Social History Tobacco Use Types Packs/Day Years [...] Pass [facility] Endoscopy Admitting Dept Virtual Department [address] [place] [address] 03/12/2025 9:30 AM EDT Hospital Encounter [facility] Endoscopy Admitting Dept Virtual Department [address] [place] [address] Hu Dobbs MD [address] [place] [address] 03/12/2025 9:30 AM EDT - 03/12/2025 10:00 AM EDT Surgery [facility] Endoscopy Admitting Dept Virtual Department 30 [place] [address] Hu Dobbs MD [address] [address] [email or web address] COLONOSCOPY Scheduled Procedures Name Priority Associated Diagnoses Date/Ti me COLONOSCOPY History of colonic polyps 03/12/2025 9:30 AM EDT documented as of this encounter Visit Diagnoses Not on filedocumented in this encounter Additional Health Concerns Infection Onset Date Last Indicated Resolved Time CoV-Risk Comment:Per note documentation 2024 2024 9:22 PM EDT documented as of this encounter Care Teams End Matcher Relationship Specialty Start Date End Date Cecilia Irizarry MD, MPH 70 [place] [address] [email or web address] PCP - General Family Medicine 11/23/17 06/24/23 Cecilia Irizarry MD, MPH 70 [place] [address] [email or web address] PCP - General Family Medicine 06/25/23 documented as of this encounter Additional Source Comments The information contained in this document represents components of the legal health record. It is not the complete legal health record.[facility]
--- OUTSIDE RECORDS SUMMARY | 2025-03-03 15:27 | XMS_ITS | Encounter Summary ---
Author Organization [facility] Address [address] [facility] [address] [place] [address] Phone Care Team Providers Care Career Specialist Name Role Phone Cecilia Irizarry MD, MPH Primary Care Provider + Cecilia Irizarry MD, MPH Primary Care Provider + Encounter Details Date Type Department Care Team (Latest Contact Info) Description 09/19/2020 Transcribe Orders Virtual Department [address] [place] [address] Cecilia Irizarry MD, MPH 70 [place], [place] [phone] [email or web address] Chronic obstructive pulmonary disease, unspecified COPD type [...] Pass [facility] Endoscopy Admitting Dept Virtual Department [address] [place] [address] 03/12/2025 9:30 AM EDT Hospital Encounter [facility] Endoscopy Admitting Dept Virtual Department 30 [place] [address] Hu Dobbs MD [address] [place] [address] [email or web address] 03/12/2025 9:30 AM EDT - 03/12/2025 10:00 AM EDT Surgery [facility] Endoscopy Admitting Dept Virtual Department 30 [place] [address] Hu Dobbs MD [address] [place] [address] [address] [address] [email or web address] COLONOSCOPY Scheduled Procedures Name Priority Associated Diagnoses Date/Ti me COLONOSCOPY History of colonic polyps 03/12/2025 9:30 AM EDT documented as of this encounter Results * Pulmonary Function Test Reason for Exam: Other (specify) (CHRONIC OBSTRUCTIVE LUNG DISEASE); Type of PFT Test: Lung Volumes, DLCO, Spirometry with bronchodilator; Performing Location: [facility] (112:56 PM EDT) FEV1 0.84 liters FVC [...] documented as of this encounter Care Teams Career Specialist Relationship Specialty Start Date End Date Cecilia Irizarry MD, MPH 70 [place] [address] PCP - General Family Medicine 11/23/17 06/24/23 Cecilia Irizarry MD, MPH 70 [place] [address] PCP - General Family Medicine 06/25/23 documented as of this encounter Additional Source Comments The information contained in this document represents components of the legal health record. It is not the complete legal health record.[facility]
--- OUTSIDE RECORDS SUMMARY | 2025-03-03 15:28 | XMS_ITS | Encounter Summary ---
Author Organization [facility] Address [address] [facility] [address] [place] [address] Phone Care Team Providers Care Custom Bike Builder Name Role Phone Cecilia Irizarry MD, MPH Primary Care Provider + Cecilia Irizarry MD, MPH Primary Care Provider + Encounter Details Date Type Department Care Team (Late Contact Info) Description 09/08/2021 Procedure Pass [facility] Endoscopy Admitting Dept Virtual Department [address] [place] [address] Social History Tobacco Use Types Packs/Day Years [...] Pass [facility] Endoscopy Admitting Dept Virtual Department [address] [place] [address] 03/12/2025 9:30 AM EDT Hospital Encounter [facility] Endoscopy Admitting Dept Virtual Department [address] [place] [address] Hu Dobbs MD [address] [place] [address] 03/12/2025 9:30 AM EDT - 03/12/2025 10:00 AM EDT Surgery [facility] Endoscopy Admitting Dept Virtual Department 30 [place] [address] Hu Dobbs MD [address] [address] [email or web address] COLONOSCOPY Scheduled Procedures Name Priority Associated Diagnoses Date/Ti me COLONOSCOPY History of colonic polyps 03/12/2025 9:30 AM EDT documented as of this encounter Visit Diagnoses Not on filedocumented in this encounter Additional Health Concerns Infection Onset Date Last Indicated Resolved Time CoV-Risk Comment:Per note documentation 2024 2024 9:22 PM EDT documented as of this encounter Care Teams Custom Bike Builder Relationship Specialty Start Date End Date Cecilia Irizarry MD, MPH 70 [place] [address] [email or web address] PCP - General Family Medicine 11/23/17 06/24/23 Cecilia Irizarry MD, MPH 70 [place] [address] [email or web address] PCP - General Family Medicine 06/25/23 documented as of this encounter Additional Source Comments The information contained in this document represents components of the legal health record. It is not the complete legal health record.[facility]
--- OUTSIDE RECORDS SUMMARY | 2025-03-03 15:28 | XMS_ITS | Encounter Summary ---
Author Organization [facility] Address 399 [facility] [address] [place] [address] Phone Care Team Providers Care Winterizer Name Role Phone Cecilia Irizarry MD, MPH Primary Care Provider + Cecilia Irizarry MD, MPH Primary Care Provider + Cecilia Irizarry MD, MPH Primary Care Provider + Encounter Details Date Type Department Care Team (Late st Contact Info) Description 08/01/2017 Procedure Pass [facility], Ct Scan - [address] [address] Social History Tobacco Use Types Packs/Day Years [...] [facility] Endoscopy Admitting Dept Virtual Department [address] [place] [address] 03/12/2025 9:30 AM EDT Hospital Encounter [facility] Endoscopy Admitting Dept Virtual Department 30 [place] [address] Hu Dobbs MD [address] [place] [address] 03/12/2025 9:30 AM EDT - 03/12/2025 10:00 AM EDT Surgery [facility] Endoscopy Admitting Dept Virtual Department 30 [place] [address] Hu Dobbs MD [address] [address] [email or web address] COLONOSCOPY Scheduled Procedures Name Priority Associated Diagnoses [...] documented as of this encounter Care Teams Winterizer Relationship Specialty Start Date End Date Cecilia Irizarry MD, MPH [address] [place] [address] [email or web address] PCP - General Family Medicine 04/23/17 11/22/17 Cecilia Irizarry MD, MPH [address] [place] [address] [email or web address] PCP - General Family Medicine 11/23/17 06/24/23 Cecilia Irizarry MD, MPH 70 [place] [address] [email or web address] PCP - General Family Medicine 06/25/23 documented as of this encounter Additional Source Comments The information contained in this document represents components of the legal health record. It is not the complete legal health record.[facility]
--- OUTSIDE RECORDS SUMMARY | 2025-03-03 15:28 | XMS_ITS | Encounter Summary ---
Author Organization [facility] Address [address] [facility] [address] [place] [address] Phone Care Team Providers Care Team Otr Truck Driver Name Role Phone Cecilia Irizarry MD, [...] Expiration Date Visits Re quested Visits Authorized [id number] Closed 08/01/2017 10/30/2017 1 1 Encounter Details Date Type Department Care Team (Late st Contact Info) Description 08/01/2017 Ancillary Orders Virtual Department 30 [place] [address] Cecilia Irizarry MD, MPH 70 [place], [place] [phone] Screening for malignant neoplasm of respiratory organ [...] st Contact Info) Description 03/12/2025 Procedure Pass [facility] Endoscopy Admitting Dept Virtual Department 30 [place] [address] 03/12/2025 9:30 AM EDT Hospital Encounter [facility] Endoscopy Admitting Dept Virtual Department 30 [place] [address] Hu Dobbs MD 10 [facility] 2 [place] [address] [email or web address] 03/12/2025 9:30 AM EDT - 03/12/2025 10:00 AM EDT Surgery [facility] Endoscopy Admitting Dept Virtual Department 30 [place] [address] Hu Dobbs MD [address] [address] [email or web address] COLONOSCOPY Scheduled Procedures Name Priority Associated Diagnoses [...] documented as of this encounter Care Teams Team Otr Truck Driver Relationship Specialty Start Date End Date Cecilia Irizarry MD, MPH [address] [place] [address] [email or web address] PCP - General Family Medicine 04/23/17 11/22/17 Cecilia Irizarry MD, MPH [address] [place] [address] [email or web address] PCP - General Family Medicine 11/23/17 06/24/23 Cecilia Irizarry MD, MPH [address] [place] [address] [email or web address] PCP - General Family Medicine 06/25/23 documented as of this encounter Additional Source Comments The information contained in this document represents components of the legal health record. It is not the complete legal health record.[facility]
--- OUTSIDE RECORDS SUMMARY | 2025-03-03 15:28 | XMS_ITS | Clinical Summary ---
Author Organization [facility] Address [address] [address] Phone Care Team Providers Care Optometric Assistant Name Role Phone Cecilia Irizarry MD, MPH [...] 200. 01/05/2024 Active glucagon (BAQSIMI) 3 mg/actuation [place] Active TRESIBA FLEXTOUCH U-100 injection pen INJECT 16 UNITS UNDER THE SKIN EVERY NIGHT AT BEDTIME Active lisinopril (PRINIVIL,ZESTR IL) 40 MG tablet Take 1 tablet by mouth daily. Active TRELEGY ELLIPTA 200-62.5-25 mcg inhalerIndicati ons:Asthma-COPD overlap syndrome INHALE 1 PUFF BY MOUTH INTO THE LUNGS DAILY 180 each 3 01/20/2025 Active losartan (COZAAR) 100 MG tablet Take 1 tablet by mouth every morning. 02/19/2025 Active Active Problems Problem Noted Date Diagnosed [...] with bronchodilator, Lung Volumes, DLCO; Performing Location: [facility]; Future albuterol 90 mcg/actuation inhaler 2-4 [...] Overview (08/29/2023): Quit in 2010 after an 48-fzvm-ljfl history. Assessment & Plan (08/05/2024 2:06 PM EDT): Quit smoking in 2010 after an 38-ujfl-mvhi history. Will continue with annual lung cancer [...] Encounters Date Type Department Care Team Description 02/26/2025 11:15 AM EDT Pre-Admission Testing Pre Procedure Evaluation 30 [place] [address] Marquez Dobbs MD 01/19/2025 Refill [facility] Pulmonary, Allergy [facility] Critical [facility] Medicine [address] [place] [address] [place] [address] Lucius Murillo MD, MS Medication Refill 01/02/2025 11:12 AM EDT - 01/02/2025 11:59 PM EDT Hospital Encounter [facility] Laboratory 30 [place] [address] Penny Serrano NP Discharge Disposition: Home or Self Care 01/02/2025 Transcribe Orders [facility] Laboratory [address] [place] [address] Penny Serrano, HEIKE Hyperkalemia (Primary Dx) from [...] Mass Index 25.18 02/26/2025 11:36 AM EDT Plan of Treatment Upcoming Encounters Date Type Department Care Team (Late st Contact Info) Description 03/12/2025 Procedure Pass [facility] Endoscopy Admitting Dept Virtual Department [address] [place] [address] 03/12/2025 9:30 AM EDT Hospital Encounter [facility] Endoscopy Admitting Dept Virtual Department [address] [place] [address] Marquez Dobbs MD [address] [place] [address] 03/12/2025 9:30 AM EDT - 03/12/2025 10:00 AM EDT Surgery [facility] Endoscopy Admitting Dept Virtual Department [address] [place] [address] Marquez Dobbs MD [address] [place] [address] [email or web address] COLONOSCOPY [...] EDT) SODIUM 139 133 - 146 mmol/L [facility] CHLORIDE 101 96 - 108 mmol/L [facility] POTASSIUM 5.4(H) 3.3 - 5.1 mmol/L [facility] Comment:Specimen slightly he molyzed, result may be falsely elevated. CO2 21 21 - 35 mmol/L [facility] BUN 25(H) 6 - 19 mg/dL [facility] CREATININE 0.90 0.5 - 1.5 mg/dL [facility] GLUCOSE 136(H) 70 - 99 mg/dL [facility] CALCIUM 9.8 8.4 - 10.3 mg/dL [facility] EGFR 91 >59 mL/min/1.7 3m2 [facility] Comment:Estimated glomerular filtration rate calculated using the CKD-EPI refit equation. ANION GAP 22(H) 10 - 20 mmol/L [facility] Blood 01/02/2025 11:2 9 AM EDT 01/02/2025 11:32 AM EDT us Penny Serrano NP LAB BLOOD ORDERABLES Final Re sult [facility] 30 [place] [address] * CT CHEST LUNG CANCER SCREENING ANNUAL [...] clinician's provided indication for this examination in [facility]: Lung Cancer Screening - FORMER smoker, [...] lungs bilaterally. Mild centrilobular emphysematous changes. Chronic ywcl-rz-xblevgzq bronchial thickening bilaterally remains evident. There are [...] clinician's provided indication for this examination in [facility]:Lung Cancer Screening - FORMER smoker, quit [...] the lungs bilaterally. Mild centrilobularemphysematous changes. Chronic ezyt-mg-epnrcpgb bronchial thickeningbilaterally remains evident. There are scattered [...] 68 Admit Type: Outpatient Gender: Male Room: [place] [address] Referring MD: Cecilia Irizarry MD Exam Type: [...] monitored continuously. The Olympus adult variable colonoscope [id number] #2 was introduced through the anus and [...] 9:24 AM Procedure Code(s): --- Professional --- 85870, Colonoscopy, flexible; with removal of tumor(s), polyp(s), or other lesion(s) by snare technique --- Technical --- 07683, Colonoscopy, flexible; with removal of tumor(s), polyp(s), or other lesion(s) by snare technique Diagnosis Code(s): --- Professional --- K63.5, Polyp of colon Z86.010, Personal history of colonic polyps Q43.8, Other specified congenital malformations of intestine --- Technical --- K63.5, Polyp of colon Z86.010, Personal history of colonic polyps Q43.8, Other specified congenital malformations of intestine CPT copyright 2020 [employer]. All rights reserved. The codes documented in this report are preliminary and upon secretary board of commissioners reviewmay be revised to meet current compliance requirements. Procedure Date: 09/08/2021 9:24:[address] [place] [address] Cecilia Irizarry MD, MPH GI PROCEDURE ORDERABLES Final Result from Last 3 Months or Most Recently Relevant to Health Maintenance Insurance [employer] SUPPLEMENT MEDICARE PART A & B [place] MED[employer] SUPPLEMENT MEDICARE PART A & B [employer] [employer] SUPPLEMENT MEDICARE PART A & B [employer] [employer] SUPPLEMENT MEDICARE PART A & B [place] [employer] SUPPLEMENT MEDICARE PART A & [place] [address] [place] [address] MEDEX SUPPLEMENT MEDICARE PART A & B [employer]OSS MEDEX SUPPLEMENT MEDICARE PART A & B [employer] CROSS MEDEX SUPPLEMENT MEDICARE PART A & B [employer] CROSS MEDEX SUPPLEMENT MEDICARE PART A & B Advance Directives For more information, please contact: [phone] (9AM - 5PM [facility], Sunday-Sunday) * Full Code (Latest Code Status on File) Date Activated Date Inactivated Comments 2024 9:29 PM Question Answer Comments Code Status Confirmed With: Patient Care Teams Optometric Assistant Relationship Specialty Start Date End Date Cecilia Irizarry MD, MPH [address] [place] [address] [email or web address] PCP - General Family Medicine 06/25/23 Additional Source Comments The information contained in this document represents components of the legal health record. It is not the complete legal health record.[facility]
--- OUTSIDE RECORDS SUMMARY | 2025-03-03 15:28 | XMS_ITS | Encounter Summary ---
Author Organization [facility] Address [address] [facility] [address] [place] [address] Phone Care Team Providers Care Speech Therapist Early Intervention Name Role Phone Cecilia Irizarry MD, MPH Primary Care Provider + Cecilia Irizarry MD, MPH Primary Care Provider + Encounter Details Date Type Department Care Team (Late st Contact Info) Description 06/18/2023 Transcribe Orders [facility] PFT Lab 30 [place] [address] Lucius Murillo MD, MS [address] [address] [email or web address] Social History Tobacco [...] [facility] Endoscopy Admitting Dept Virtual Department 30 [place] [address] 03/12/2025 9:30 AM EDT Hospital Encounter [facility] Endoscopy Admitting Dept Virtual Department 30 [place] [address] Hu Dobbs MD [address] [address] 03/12/2025 9:30 AM EDT - 03/12/2025 10:00 AM EDT Surgery [facility] Endoscopy Admitting Dept Virtual Department 30 [place] [address] Hu Dobbs MD [address] [address] [email or web address] COLONOSCOPY Scheduled Procedures Name Priority Associated Diagnoses Date/Ti me COLONOSCOPY History of colonic polyps 03/12/2025 9:30 AM EDT documented as of this encounter Visit Diagnoses Not on filedocumented in this encounter Additional Health Concerns Infection Onset Date Last Indicated Resolved Time CoV-Risk Comment:Per note documentation 2024 2024 9:22 PM EDT documented as of this encounter Care Teams Speech Therapist Early Intervention Relationship Specialty Start Date End Date Cecilia Irizarry MD, MPH 70 [place] [address] [email or web address] PCP - General Family Medicine 11/23/17 06/24/23 Cecilia Irizarry MD, MPH 70 [place] [address] [email or web address] PCP - General Family Medicine 06/25/23 documented as of this encounter Additional Source Comments The information contained in this document represents components of the legal health record. It is not the complete legal health record.[facility]
--- OUTSIDE RECORDS SUMMARY | 2025-03-03 15:28 | XMS_ITS | Encounter Summary ---
Author Organization [facility] Address [address] [facility] [address] [place] [address] Phone Care Team Providers Care Cafe Or Restaurant Manager Name Role Phone Cecilia Irizarry MD, MPH Primary Care Provider + Cecilia Irizarry MD, MPH Primary Care Provider + Cecilia Irizarry MD, MPH Primary Care Provider + Encounter Details Date Type Department Care Team (Late Contact Info) Description 04/17/2017 Ancillary Orders Virtual Department [address] [place] [address] Cecilia Irizarry MD, MPH 70 [place] [address] [email or web address] Retinal hemorrhage, unspecified laterality Social History [...] Pass [facility] Endoscopy Admitting Dept Virtual Department [address] [place] [address] 03/12/2025 9:30 AM EDT Hospital Encounter [facility] Endoscopy Admitting Dept Virtual Department 30 [place] [address] Hu Dobbs MD [address] [place] [address] 03/12/2025 9:30 AM EDT - 03/12/2025 10:00 AM EDT Surgery [facility] Endoscopy Admitting Dept Virtual Department 30 [place] [address] Hu Dobbs MD [address] [place] [address] 2 [place] [address] [email or web address] COLONOSCOPY Scheduled Procedures Name Priority Associated Diagnoses Date/Ti ga COLONOSCOPY History of colonic polyps 03/12/2025 9:30 [...] documented as of this encounter Care Teams Cafe Or Restaurant Manager Relationship Specialty Start Date End Date Cecilia Irizarry MD, MPH 70 [place] [address] [email or web address] PCP - General Family Medicine 04/23/17 11/22/17 Cecilia Irizarry MD, MPH 70 [place] [address] [email or web address] PCP - General Family Medicine 11/23/17 06/24/23 Cecilia Irizarry MD, MPH [address] [place] [address] [email or web address] PCP - General Family Medicine 06/25/23 documented as of this encounter Additional Source Comments The information contained in this document represents components of the legal health record. It is not the complete legal health record.[facility]
--- OUTSIDE RECORDS SUMMARY | 2025-03-03 15:28 | XMS_ITS | Encounter Summary ---
Author Organization [facility] Address [address] [facility] [address] [place] [address] Phone Care Team Providers Care Committee Member Name Role Phone Cecilia Irizarry MD, MPH Primary Care Provider + Cecilia Irizarry MD, MPH Primary Care Provider + Encounter Details Date Type Department Care Team (Latest Contact Info) Description 12/05/2019 Transcribe Orders Virtual Department [address] [place] [address] Cynthia Rondon HANDER IN [address] [place] [address] Cough (Primary Dx); Shortness of breath Social [...] Pass [facility] Endoscopy Admitting Dept Virtual Department [address] [place] [address] 03/12/2025 9:30 AM EDT Hospital Encounter [facility] Endoscopy Admitting Dept Virtual Department 30 [place] [address] Hu Dobbs MD [address] [place] [address] 03/12/2025 9:30 AM EDT - 03/12/2025 10:00 AM EDT Surgery [facility] Endoscopy Admitting Dept Virtual Department 30 [place] [address] Hu Dobbs MD [address] [place] [address] [email or web address] COLONOSCOPY Scheduled Procedures Name Priority Associated Diagnoses Date/Ti me COLONOSCOPY History of colonic polyps 03/12/2025 9:30 AM EDT documented as of this encounter Results * COVID-19 PCR Order (12/06/2019 9:54 AM EDT) Specimen Source NASOPHARYNGEAL SWAB (HANDER IN) [facility] COVID Testing Status Sent to [facility] Other 12/06/2019 9:54 AM EDT 12/06/2019 10:20 AM EDT us Cynthia Rondon HANDER IN BODY FLUIDS AND STOOLS ORDERABL ES Final Result [facility] 30 [place] [address] documented in this encounter Visit Diagnoses Diagnosis Cough- Primary Shortness of breath History of colonic polyps Personal history of colonic polyps documented in this encounter Additional Health Concerns Infection Onset Date Last Indicated Resolved Time CoV-Risk 12/05/2019 12/06/2019 12/19/2019 3:34 AM EDT CoV-Risk Comment:Per note documentation 2024 2024 9:22 PM EDT documented as of this encounter Care Teams Committee Member Relationship Specialty Start Date End Date Cecilia Irizarry MD, MPH 70 [place] [address] [email or web address] PCP - General Family Medicine 11/23/17 06/24/23 Cecilia Irizarry MD, MPH 70 [place] [address] [email or web address] PCP - General Family Medicine 06/25/23 documented as of this encounter Additional Source Comments The information contained in this document represents components of the legal health record. It is not the complete legal health record.[facility]
--- OUTSIDE RECORDS SUMMARY | 2025-03-03 15:28 | XMS_ITS | Encounter Summary ---
Author Organization [facility] Address [address] [facility] [address] [place] [address] Phone Care Team Providers Care Communications Director Name Role Phone Cecilia Irizarry MD, MPH Primary Care Provider + Cecilia Irizarry MD, MPH Primary Care Provider + Encounter Details Date Type Department Care Team (Late Contact Info) Description 12/03/2017 Ancillary Orders Virtual Department [address] [place] [address] Cecilia Irizarry MD, MPH 70 [place] [address] Social History Tobacco Use Types Packs/Day Years [...] Pass [facility] Endoscopy Admitting Dept Virtual Department [address] [place] [address] 03/12/2025 9:30 AM EDT Hospital Encounter [facility] Endoscopy Admitting Dept Virtual Department 30 [place] [address] Hu Dobbs MD [address] [place] [address] 03/12/2025 9:30 AM EDT - 03/12/2025 10:00 AM EDT Surgery [facility] Endoscopy Admitting Dept Virtual Department 30 [place] [address] Hu Dobbs MD [address] [place] [address] [email or web address] COLONOSCOPY Scheduled Procedures Name Priority Associated Diagnoses [...] documented as of this encounter Care Teams Communications Director Relationship Specialty Start Date End Date Cecilia Irizarry MD, MPH [address] [place] [address] [email or web address] PCP - General Family Medicine 11/23/17 06/24/23 Cecilia Irizarry MD, MPH [address] [place] [address] [email or web address] PCP - General Family Medicine 06/25/23 documented as of this encounter Additional Source Comments The information contained in this document represents components of the legal health record. It is not the complete legal health record.[facility]
--- OUTSIDE RECORDS SUMMARY | 2025-03-03 15:28 | XMS_ITS | Encounter Summary ---
Author Organization [facility] Address [address] [facility] [address] [place] [address] Phone Care Team Providers Care White Lead Grinder Name Role Phone Cecilia Irizarry MD, MPH Primary Care Provider + Cecilia Irizarry MD, MPH Primary Care Provider + Encounter Details Date Type Department Care Team (Late st Contact Info) Description 04/24/2022 Transcribe Orders [facility] PFT Lab 30 [place] [address] Lucius Murillo MD, MS [address] [address] [email or web address] Social History Tobacco Use Types Packs/Day Years [...] [facility] Endoscopy Admitting Dept Virtual Department 30 [place] [address] 03/12/2025 9:30 AM EDT Hospital Encounter [facility] Endoscopy Admitting Dept Virtual Department 30 [place] [address] Hu Dobbs MD [address] [place] [address] [phone] 03/12/2025 9:30 AM EDT - 03/12/2025 10:00 AM EDT Surgery [facility] Endoscopy Admitting Dept Virtual Department 30 [place] [address] Hu Dobbs MD [address] [place] [address] [email or web address] COLONOSCOPY Scheduled Procedures Name Priority Associated Diagnoses Date/Ti me COLONOSCOPY History of colonic polyps 03/12/2025 9:30 AM EDT documented as of this encounter Visit Diagnoses Not on filedocumented in this encounter Additional Health Concerns Infection Onset Date Last Indicated Resolved Time CoV-Risk Comment:Per note documentation 2024 2024 9:22 PM EDT documented as of this encounter Care Teams White Lead Grinder Relationship Specialty Start Date End Date Cecilia Irizarry MD, MPH 70 [place] [address] [email or web address] PCP - General Family Medicine 11/23/17 06/24/23 Cecilia Irizarry MD, MPH 70 [place] [address] [email or web address] PCP - General Family Medicine 06/25/23 documented as of this encounter Additional Source Comments The information contained in this document represents components of the legal health record. It is not the complete legal health record.[facility]
--- OUTSIDE RECORDS SUMMARY | 2025-03-03 15:28 | XMS_ITS | Encounter Summary ---
Author Organization [facility] Address [address] [facility] [address] [place] [address] Phone Care Team Providers Care Legal Contracts Specialist Name Role Phone Cecilia Irizarry MD, MPH Primary Care Provider + Cecilia Irizarry MD, MPH Primary Care Provider + Encounter Details Date Type Department Care Team (Late Contact Info) Description 12/31/2020 Procedure Pass [facility], Ct Scan - [address] [address] Social History Tobacco Use Types Packs/Day Years [...] Pass [facility] Endoscopy Admitting Dept Virtual Department [address] [place] [address] 03/12/2025 9:30 AM EDT Hospital Encounter [facility] Endoscopy Admitting Dept Virtual Department [address] [place] [address] Hu Dobbs MD [address] [place] [address] 03/12/2025 9:30 AM EDT - 03/12/2025 10:00 AM EDT Surgery [facility] Endoscopy Admitting Dept Virtual Department 30 [place] [address] Hu Dobbs MD [address] [address] [email or web address] [...] documented as of this encounter Care Teams Legal Contracts Specialist Relationship Specialty Start Date End Date Cecilia Irizarry MD, MPH 70 [place] [address] [email or web address] PCP - General Family Medicine 11/23/17 06/24/23 Cecilia Irizarry MD, MPH 70 [place] [address] [email or web address] PCP - General Family Medicine 06/25/23 documented as of this encounter Additional Source Comments The information contained in this document represents components of the legal health record. It is not the complete legal health record.[facility]
--- OUTSIDE RECORDS SUMMARY | 2025-03-03 15:28 | XMS_ITS | Encounter Summary ---
Author Organization [facility] Address [address] [facility] [address] [place] [address] Phone Care Team Providers Care French Drawer Name Role Phone Cecilia Irizarry MD, MPH Primary Care Provider + Cecilia Irizarry MD, MPH Primary Care Provider + Cecilia Irizarry MD, MPH Primary Care Provider + Encounter Details Date Type Department Care Team (Late Contact Info) Description 11/15/2017 Ancillary Orders Virtual Department [address] [place] [address] Cecilia Irizarry MD, MPH 70 [place] [address] Chest pain, unspecified type Social History Tobacco [...] Pass [facility] Endoscopy Admitting Dept Virtual Department [address] [place] [address] 03/12/2025 9:30 AM EDT Hospital Encounter [facility] Endoscopy Admitting Dept Virtual Department 30 [place] [address] Hu Dobbs MD [address] [place] [address] [email or web address] 03/12/2025 9:30 AM EDT - 03/12/2025 10:00 AM EDT Surgery [facility] Endoscopy Admitting Dept Virtual Department 30 [place] [address] Hu Dobbs MD 10 [facility] 2 [place] [address] [email or web address] COLONOSCOPY Scheduled Procedures Name Priority Associated Diagnoses Date/Ti me COLONOSCOPY History of colonic polyps 03/12/2025 9:30 AM EDT documented as of this encounter Results * Stress Test Exercise (11/26/2017 11:55 AM EDT) Max BP Systolic 210 mmHg [facility] Max BP Diastolic 80 mmHg [facility] Max HR 142 BPM [facility] Resting HR 88 BPM [facility] Resting BP Systolic 134 mmHg [facility] Resting BP Diastolic 60 mmHg [facility] Peak METS 6.5 METS [facility] Peak HR 139 BPM [facility] Anatomical Region Laterality Modality Heart Other 11/26/2017 [...] documented as of this encounter Care Teams French Drawer Relationship Specialty Start Date End Date Cecilia Irizarry MD, MPH 70 [place] [address] PCP - General Family Medicine 04/23/17 11/22/17 Cecilia Irizarry MD, MPH 70 [place] [address] PCP - General Family Medicine 11/23/17 06/24/23 Cecilia Irizarry MD, MPH [address] [place] [address] [email or web address] PCP - General Family Medicine 06/25/23 documented as of this encounter Additional Source Comments The information contained in this document represents components of the legal health record. It is not the complete legal health record.[facility]
--- OUTSIDE RECORDS SUMMARY | 2025-03-03 15:28 | XMS_ITS | Encounter Summary ---
Author Organization [facility] Address [address] [facility] [address] [place] [address] Phone Care Team Providers Care Electrical Equipment Technician Name Role Phone Cecilia Irizarry MD, MPH Primary Care Provider + Cecilia Irizarry MD, MPH Primary Care Provider + Encounter Details Date Type Department Care Team (Late Contact Info) Description 12/03/2017 Ancillary Orders Virtual Department [address] [place] [address] Cecilia Irizarry MD, MPH 70 [place] [address] Social History Tobacco Use Types Packs/Day Years [...] [facility] Endoscopy Admitting Dept Virtual Department [address] [place] [address] 03/12/2025 9:30 AM EDT Hospital Encounter [facility] Endoscopy Admitting Dept Virtual Department 30 [place] [address] Hu Dobbs MD [address] [place] [address] 03/12/2025 9:30 AM EDT - 03/12/2025 10:00 AM EDT Surgery [facility] Endoscopy Admitting Dept Virtual Department 30 [place] [address] Hu Dobbs MD [address] [place] [address] [email or web address] COLONOSCOPY Scheduled Procedures Name Priority [...] documented as of this encounter Care Teams Electrical Equipment Technician Relationship Specialty Start Date End Date Cecilia Irizarry MD, MPH 70 [place] [address] [email or web address] PCP - General Family Medicine 11/23/17 06/24/23 Cecilia Irizarry MD, MPH 70 [place] [address] [email or web address] PCP - General Family Medicine 06/25/23 documented as of this encounter Additional Source Comments The information contained in this document represents components of the legal health record. It is not the complete legal health record.[facility]
--- OUTSIDE RECORDS SUMMARY | 2025-03-03 15:28 | XMS_ITS | Encounter Summary ---
Author Organization [facility] Address [address] [facility] [address] [place] [address] Phone Care Team Providers Care Pacs Specialist Name Role Phone Cecilia Irizarry MD, MPH Primary Care Provider + Cecilia Irizarry MD, MPH Primary Care Provider + Encounter Details Date Type Department Care Team (Late Contact Info) Description 01/02/2022 Procedure Pass [facility], Ct Scan - [address] [address] Social History Tobacco Use Types Packs/Day Years [...] Pass [facility] Endoscopy Admitting Dept Virtual Department [address] [place] [address] 03/12/2025 9:30 AM EDT Hospital Encounter [facility] Endoscopy Admitting Dept Virtual Department [address] [place] [address] Hu Dobbs MD [address] [place] [address] 03/12/2025 9:30 AM EDT - 03/12/2025 10:00 AM EDT Surgery [facility] Endoscopy Admitting Dept Virtual Department 30 [place] [address] Hu Dobbs MD [address] [address] [email or web address] COLONOSCOPY Scheduled Procedures Name Priority Associated Diagnoses Date/Ti me COLONOSCOPY History of colonic polyps 03/12/2025 9:30 AM EDT documented as of this encounter Visit Diagnoses Not on filedocumented in this encounter Additional Health Concerns Infection Onset Date Last Indicated Resolved Time CoV-Risk Comment:Per note documentation 2024 2024 9:22 PM EDT documented as of this encounter Care Teams Pacs Specialist Relationship Specialty Start Date End Date Cecilia Irizarry MD, MPH 70 [place] [address] [email or web address] PCP - General Family Medicine 11/23/17 06/24/23 Cecilia Irizarry MD, MPH [address] [place] [address] [email or web address] PCP - General Family Medicine 06/25/23 documented as of this encounter Additional Source Comments The information contained in this document represents components of the legal health record. It is not the complete legal health record.[facility]
== END 2025-03-03 13:19 | disposition home or self-care (01) ==
LOC: HO.ENCR 12:37
PROVIDERS: PCP Family Medicine; Visit Provider Physician Assistant Medical
DX: E11.51 Type 2 diabetes mellitus with diabetic peripheral angiopathy without gangrene (principal); Z79.4 Long term (current) use of insulin; E16.2 Hypoglycemia, unspecified; I25.10 Atherosclerotic heart disease of native coronary artery without angina pectoris; R79.89 Other specified abnormal findings of blood chemistry

== ENCOUNTER → 2025-03-03 12:36 | Outpatient (BNVA) | payer MEDICARE, SELFPAY | PROVIDERS: PCP Family Medicine; Visit Provider Physician Assistant Medical | DX: E11.51 Type 2 diabetes mellitus with diabetic peripheral angiopathy without gangrene (principal); E16.2 Hypoglycemia, unspecified; I25.10 Atherosclerotic heart disease of native coronary artery without angina pectoris; R79.89 Other specified abnormal findings of blood chemistry; Z79.4 Long term (current) use of insulin; Z87.891 Personal history of nicotine dependence | CPT/HCPCS: 82947; 99212 ==

== ENCOUNTER 2025-03-25 13:07 | Outpatient (REF) | payer MEDICARE, SELFPAY ==
--- NOTE | ~2025-03-25 | US_ITS ---
EXAMINATION: Noninvasive assessment of the bilateral lower extremities with ARTERIAL DUPLEX, ANKLE BRACHIAL INDICES (ABIs), and PULSE VOLUME RECORDINGS (PVRs). CLINICAL INFORMATION: I73.9. TECHNIQUE: Duplex Doppler techniques with waveform analysis and measurement of velocities in the bilateral common femoral, profunda femoris, superficial femoral, popliteal and tibial arteries were performed. Additionally, ankle pulse volume recordings, ankle pressure measurements and ankle brachial indices were obtained of the lower extremity arterial system bilaterally. The study was performed only at rest. COMPARISON: November 12, 2023. FINDINGS: Arrhythmia episodes. Calcified plaques. DIRECT DUPLEX DOPPLER FINDINGS: RIGHT LEG: Common femoral artery: 188 cm/s, phasicity: Biphasic. Profunda femoris artery: 215 cm/s, phasicity: Biphasic. Spectral broadening. Superficial femoral artery (proximal): 68 cm/s, phasicity: Biphasic. Spectral broadening. Superficial femoral artery (mid): 82 cm/s, phasicity: Biphasic. Spectral broadening. Superficial femoral artery (distal): 135 cm/s, phasicity: Biphasic. Spectral broadening. Popliteal artery: 71 cm/s, phasicity: Biphasic. Posterior tibial artery: 32 cm/s, phasicity: Biphasic. Spectral broadening. Peroneal artery: 37 cm/s, phasicity: Monophasic. Spectral broadening. Reversal. Anterior tibial artery: 30 cm/s, phasicity: Monophasic. Spectral broadening. Dorsalis pedis artery: 38 cm/s, phasicity:Biphasic. Spectral broadening. LEFT LEG: Common femoral artery: 213 cm/s, phasicity: Biphasic. Spectral broadening. Profunda femoris artery: 220 cm/s, phasicity: Biphasic. Spectral broadening. Superficial femoral artery (proximal): 92 cm/s, phasicity: Biphasic. Spectral broadening. Superficial femoral artery (mid): 119 cm/s, phasicity: Triphasic. Spectral broadening. Superficial femoral artery (distal): 172 cm/s, phasicity: Triphasic. Spectral broadening. Popliteal artery: 160 cm/s, phasicity: Biphasic. Spectral broadening. Posterior tibial artery: 54 cm/s, phasicity: Biphasic. Spectral broadening. Peroneal artery: 39 cm/s, phasicity: Biphasic. Spectral broadening. Anterior tibial artery: 57 cm/s, phasicity: Biphasic. Spectral broadening. Dorsalis pedis artery: 80 cm/s, phasicity: Biphasic. Spectral broadening. BRACHIAL PRESSURES: Right: 150 Left: 146 ANKLE PRESSURES: Right: PT 109, DP 101 Left: PT 124, DP 102 ANKLE-BRACHIAL INDEX: Right: 0.73 Left: 0.83 ANKLE PVR WAVEFORMS: Right: Abnormal. Left: Abnormal US/US arterial duplex BI w/ AMELIA IMPRESSION: Right leg: Moderate inflow disease throughout the interrogated arteries more prominent on the peroneal and anterior tibialis arteries. Left leg: Moderate inflow disease throughout the interrogated arteries. AMELIA Reference: - >1.4 = calcified vessels - 0.9 - 1.4 = normal - no significant arterial disease - 0.7 - 0.89 = mild peripheral arterial disease - 0.51 - 0.69 = moderate peripheral arterial disease - 0.50 = severe peripheral arterial disease - < .30 = critical arterial disease Electronically signed by: Forrest Alberts MD 03/25/2025 02:37 PM EDT
--- OUTSIDE RECORDS SUMMARY | 2025-03-25 16:43 | XMS_ITS | Encounter Summary ---
Author Organization [facility] Address [address] [facility] [address] [place] [address] Phone Care Team Providers Care Director Emergency Services Name Role Phone Cecilia Irizarry MD, MPH Primary Care Provider + Cecilia Irizarry MD, MPH Primary Care Provider + Encounter Details Date Type Department Care Team (Late st Contact Info) Description 05/04/2022 Procedure Pass [facility], Ct Scan - [address] [address] Social History Tobacco Use Types Packs/Day Years [...] as of this encounter Plan of Treatment Not on file documented as of this encounter Visit Diagnoses Not on filedocumented in this encounter Additional Health Concerns Infection Onset Date Last Indicated Resolved Time CoV-Risk Comment:Per note documentation 2024 2024 9:22 PM EDT documented as of this encounter Care Teams Director Emergency Services Relationship Specialty Start Date End Date Cecilia Irizarry MD, MPH [address] [place] [address] PCP - General Family Medicine 11/23/17 06/24/23 Cecilia Irizarry MD, [place] [address] [email or web address] PCP - General Family Medicine 06/25/23 documented as of this encounter Additional Source Comments The information contained in this document represents components of the legal health record. It is not the complete legal health record.[facility]
--- OUTSIDE RECORDS SUMMARY | 2025-03-25 16:43 | XMS_ITS | Encounter Summary ---
Author Organization [facility] Address [address] [facility] [address] [place] [address] Phone Care Team Providers Care Director Of Marketing Operations Name Role Phone Cecilia Irizarry MD, MPH Primary Care Provider + Cecilia Irizarry MD, MPH Primary Care Provider + Encounter Details Date Type Department Care Team (Late st Contact Info) Description 10/06/2020 Transcribe Orders [facility] PFT Lab 30 [place] [address] Cecilia Irizarry MD, MPH 70 [place] [address] Social History Tobacco Use Types Packs/Day Years [...] as of this encounter Care Teams Director Of Marketing Operations Relationship Specialty Start Date End Date Cecilia Irizarry MD, MPH [address] [place], [place] [phone] [email or web address] PCP - General Family Medicine 11/23/17 06/24/23 Cecilia Irizarry MD, MPH [address] [place] [address] [email or web address] PCP - General Family Medicine 06/25/23 documented as of this encounter Additional Source Comments The information contained in this document represents components of the legal health record. It is not the complete legal health record.[facility]
--- OUTSIDE RECORDS SUMMARY | 2025-03-25 16:43 | XMS_ITS | Encounter Summary ---
Author Organization [facility] Address [address] [facility] [address] [place] [address] Phone Care Team Providers Care Veneer Taping Machine Operator Name Role Phone Cecilia Irizarry MD, MPH Primary Care Provider + Encounter Details Date Type Department Care Team (Late st Contact Info) Description 03/12/2025 Procedure Pass [facility] Endoscopy Admitting Dept Virtual Department 30 [place] [address] Social History Tobacco Use Types Packs/Day Years [...] as food, clothing, or medical care? No 03/12/2025 In the past 12 months have y ou been in a relationship with a person who hurts, threatens, or tries to control you? No 03/12/2025 Are you denied basic needs s uch as food, clothing, or medical care? No 03/12/2025 In the past 12 months have y ou been in a relationship with a person who hurts, threatens, or tries to control you? No 03/12/2025 Sex and Gender Information Value Date Recorded Sex Assigned at Not on file Legal Sex Male 9:58 PM EDT Gender Identity Not on file Sexual Orientation Not on file documented as of this encounter Plan of Treatment Not on file documented as of this encounter Visit Diagnoses Not on filedocumented in this encounter Care Teams Veneer Taping Machine Operator Relationship Specialty Start Date End Date Cecilia Irizarry MD, MPH [address] [place] [address] [email or web address] PCP - General Family Medicine 06/25/23 documented as of this encounter Additional Source Comments The information contained in this document represents components of the legal health record. It is not the complete legal health record.[facility]
--- OUTSIDE RECORDS SUMMARY | 2025-03-25 16:43 | XMS_ITS | Encounter Summary ---
Author Organization [facility] Address [address] [facility] [address] [place] [address] Phone Care Team Providers Care Engineer Chief Name Role Phone Cecilia Irizarry MD, MPH Primary Care Provider + Cecilia Irizarry MD, MPH Primary Care Provider + Encounter Details Date Type Department Care Team (Late st Contact Info) Description 12/03/2017 Ancillary Orders Virtual Department 30 [place] [address] Cecilia Irizarry MD, MPH 70 [place] [address] Social History Tobacco Use Types Packs/Day Years [...] documented as of this encounter Care Teams Engineer Chief Relationship Specialty Start Date End Date Cecilia Irizarry MD, MPH 70 [place] [address] PCP - General Family Medicine 6/29/18 1/28/24 Cecilia Irizarry MD, MPH [address] [place] [address] [email or web address] PCP - General Family Medicine 06/25/23 documented as of this encounter Additional Source Comments The information contained in this document represents components of the legal health record. It is not the complete legal health record.[facility]
--- OUTSIDE RECORDS SUMMARY | 2025-03-25 16:43 | XMS_ITS | Encounter Summary ---
Author Organization [facility] Address 399 [facility] [address] [place] [address] Phone Care Team Providers Care Marketing Database Consultant Name Role Phone Cecilia Irizarry MD, MPH Primary Care Provider + Cecilia Irizarry MD, MPH Primary Care Provider + Encounter Details Date Type Department Care Team (Late st Contact Info) Description 10/22/2020 Procedure Pass [facility], Ct Scan - [address] [address] Social History Tobacco Use Types Packs/Day Years [...] documented as of this encounter Care Teams Marketing Database Consultant Relationship Specialty Start Date End Date Cecilia Irizarry MD, MPH [address] [place] [address] PCP - General Family Medicine 11/23/17 06/24/23 Cecilia Irizarry MD, [place] [address] [email or web address] PCP - General Family Medicine 06/25/23 documented as of this encounter Additional Source Comments The information contained in this document represents components of the legal health record. It is not the complete legal health record.[facility]
--- OUTSIDE RECORDS SUMMARY | 2025-03-25 16:43 | XMS_ITS | Encounter Summary ---
Author Organization [facility] Address [address] [address] Phone Care Team Providers Care Communications Field Technician Name Role Phone Cecilia Irizarry MD, MPH Primary Care Provider + Cecilia Irizarry MD, MPH Primary Care Provider + Encounter Details Date Type Department Care Team (Latest Contact Info) Description 09/19/2020 Transcribe Orders Virtual Department 30 [place] [address] Cecilia Irizarry MD, MPH [address] [place], [place] [phone] [email or web address] Chronic obstructive pulmonary disease, unspecified COPD type [...] on file documented as of this encounter Results * Pulmonary Function Test Reason for Exam: Other (specify) (CHRONIC OBSTRUCTIVE LUNG DISEASE); Type of PFT Test: Lung Volumes, DLCO, Spirometry with bronchodilator; Performing Location: [facility] (112:56 PM EDT) FEV1 0.84 liters FVC [...] Chronic obstructive pulmonary disease, unspecified COPD type documented in this encounter Additional Health Concerns Infection Onset Date Last Indicated Resolved Time CoV-Risk Comment:Per note documentation 2024 2024 9:22 PM EDT documented as of this encounter Care Teams Communications Field Technician Relationship Specialty Start Date End Date Cecilia Irizarry MD, MPH [address] [place] [address] [email or web address] PCP - General Family Medicine 11/23/17 06/24/23 Cecilia Irizarry MD, MPH [address] [place] [address] [email or web address] PCP - General Family Medicine 06/25/23 documented as of this encounter Additional Source Comments The information contained in this document represents components of the legal health record. It is not the complete legal health record.[facility]
--- OUTSIDE RECORDS SUMMARY | 2025-03-25 16:43 | XMS_ITS | Encounter Summary ---
Author Organization [facility] Address [address] [address] Phone Care Team Providers Care Block Cableman Name Role Phone Cecilia Irizarry MD, MPH Primary Care Provider + Cecilia Irizarry MD, MPH Primary Care Provider + Reason for Referral * Consultation (Elective) - Closed Specialty Diagnoses / Procedures Referred By Contac t Referred To Contact Pulmonary Disease Cecilia Irizarry MD, MPH Phone: tel: fax: mailto:[email or web address] [facility] [address] [place] [address] Phone: tel: Referral ID Status Reason Start Date Expiration Date Visits Re quested Visits Authorized [id number] Closed 09/08/2020 09/08/2021 1 1 Encounter Details Date Type Department Care Team (Late st Contact Info) Description 09/08/2020 Transcribe Orders [facility] Pulmonary, Allergy and Critical Care Medicine 10 [place] [address] Cecilia Irizarry MD, MPH [address] [place], [place] [phone] [email or web address] Social History Tobacco Use Types Packs/Day Years [...] as of this encounter Plan of Treatment Scheduled Referrals Name Type Priority Associated Diagnoses Order Schedule Ambulatory referral to [facility] Pulmonology Outpatient Referral Routine Ordered: 09/08/2020 documented as of this encounter Visit Diagnoses Not on filedocumented in this encounter Additional Health Concerns Infection Onset Date Last Indicated Resolved Time CoV-Risk Comment:Per note documentation 2024 2024 9:22 PM EDT documented as of this encounter Care Teams Block Cableman Relationship Specialty Start Date End Date Cecilia Irizarry MD, MPH [address] [place] [address] [email or web address] PCP - General Family Medicine 11/23/17 06/24/23 Cecilia Irizarry MD, MPH [address] [place] [address] [email or web address] PCP - General Family Medicine 06/25/23 documented as of this encounter Additional Source Comments The information contained in this document represents components of the legal health record. It is not the complete legal health record.[facility]
--- OUTSIDE RECORDS SUMMARY | 2025-03-25 16:43 | XMS_ITS | Encounter Summary ---
Author Organization [facility] Address 399 [facility] [address] [place] [address] Phone Care Team Providers Care Logistics System Engineer Name Role Phone Cecilia Irizarry MD, MPH Primary Care Provider + Cecilia Irizarry MD, MPH Primary Care Provider + Encounter Details Date Type Department Care Team (Late st Contact Info) Description 06/18/2023 Transcribe Orders [facility] PFT [facility] 30 [place] [address] Lucius Murillo MD, MS [address] [address] [email or web address] Social History Tobacco Use Types Packs/Day Years [...] documented as of this encounter Care Teams Logistics System Engineer Relationship Specialty Start Date End Date Cecilia Irizarry MD, MPH [address] [place] [address] [email or web address] PCP - General Family Medicine 11/23/17 06/24/23 Cecilia Irizarry MD, MPH [address] [place] [address] [email or web address] PCP - General Family Medicine 06/25/23 documented as of this encounter Additional Source Comments The information contained in this document represents components of the legal health record. It is not the complete legal health record.[facility]
--- OUTSIDE RECORDS SUMMARY | 2025-03-25 16:43 | XMS_ITS | Encounter Summary ---
Author Organization [facility] Address 399 [facility] [address] [place] [address] Phone Care Team Providers Care Enamel Shader Name Role Phone Cecilia Irizarry MD, MPH Primary Care Provider + Encounter Details Date Type Department Care Team (Late st Contact Info) Description 08/29/2023 Procedure Pass [facility], Ct Scan - [facility] 30 [place] [address] Social History Tobacco Use Types Packs/Day Years [...] documented as of this encounter Care Teams Enamel Shader Relationship Specialty Start Date End Date Cecilia Irizarry MD, MPH 70 [place] [address] [email or web address] PCP - General Family Medicine 06/25/23 documented as of this encounter Additional Source Comments The information contained in this document represents components of the legal health record. It is not the complete legal health record.[facility]
--- OUTSIDE RECORDS SUMMARY | 2025-03-25 16:43 | XMS_ITS | Encounter Summary ---
Author Organization [facility] Address 399 [facility] [address] [place] [address] Phone Care Team Providers Care Child Care Counselor Name Role Phone Cecilia Irizarry MD, MPH Primary Care Provider + Cecilia Irizarry MD, MPH Primary Care Provider + Encounter Details Date Type Department Care Team (Late st Contact Info) Description 01/02/2022 Procedure Pass [facility], Ct Scan - [address] [address] Social History Tobacco Use Types Packs/Day Years [...] documented as of this encounter Care Teams Child Care Counselor Relationship Specialty Start Date End Date Cecilia Irizarry MD, MPH [address] [place] [address] PCP - General Family Medicine 11/23/17 06/24/23 Cecilia Irizarry MD, [place] [address] [email or web address] PCP - General Family Medicine 06/25/23 documented as of this encounter Additional Source Comments The information contained in this document represents components of the legal health record. It is not the complete legal health record.[facility]
--- OUTSIDE RECORDS SUMMARY | 2025-03-25 16:43 | XMS_ITS | Encounter Summary ---
Author Organization [facility] Address [address] [address] Phone Care Team Providers Care Injection Moulding Machine Operator Name Role Phone Cecilia Irizarry MD, MPH Primary Care Provider + Cecilia Irizarry MD, MPH Primary Care Provider + Encounter Details Date Type Department Care Team (Latest Contact Info) Description 10/11/2022 Transcribe Orders Virtual Department 30 [place] [address] Cecilia Irizarry MD, MPH 70 [place] [address] [email or web address] Peripheral vascular disease, unspecified (Primary Dx) Social [...] Diagnoses Diagnosis Peripheral vascular disease, unspecified- Primary documented in this encounter Additional Health Concerns Infection Onset Date Last Indicated Resolved Time CoV-Risk Comment:Per note documentation 2024 2024 08/09/202 4 9:22 PM EDT documented as of this encounter Care Teams Injection Moulding Machine Operator Relationship Specialty Start Date End Date Cecilia Irizarry MD, MPH [address] [place] [address] [email or web address] PCP - General Family Medicine 11/23/17 06/24/23 Cecilia Irizarry MD, MPH [address] [place] [address] [email or web address] PCP - General Family Medicine 06/25/23 documented as of this encounter Additional Source Comments The information contained in this document represents components of the legal health record. It is not the complete legal health record.[facility]
--- OUTSIDE RECORDS SUMMARY | 2025-03-25 16:44 | XMS_ITS | Encounter Summary ---
Author Organization [facility] Address 399 [facility] [address] [place] [address] Phone Care Team Providers Care Sql Report Analyst Name Role Phone Cecilia Irizarry MD, MPH Primary Care Provider + Cecilia Irizarry MD, MPH Primary Care Provider + Cecilia Irizarry MD, MPH Primary Care Provider + Encounter Details Date Type Department Care Team (Late st Contact Info) Description 04/17/2017 Ancillary Orders Virtual Department 30 [place] [address] Cecilia Irizarry MD, MPH 70 [place] [address] [email or web address] Retinal hemorrhage, unspecified laterality Social History Tobacco [...] arteries: Normal antegrade flow. Procedure Note Todd Duarte MD - 05/02/2017 HISTORY: Possible CVA, retinal [...] hemorrhage, unspecified laterality Retinal hemorrhage, unspecified laterality documented in this encounter Additional Health Concerns Infection Onset Date Last Indicated Resolved Time CoV-Risk 12/05/2019 12/06/2019 12/19/2019 3:34 AM EDT CoV-Risk Comment:Per note documentation 2024 2024 9:22 PM EDT documented as of this encounter Care Teams Sql Report Analyst Relationship Specialty Start Date End Date Cecilia Irizarry MD, MPH [address] [place] [address] [email or web address] PCP - General Family Medicine 04/23/17 11/22/17 Cecilia Irizarry MD, MPH [address] [place] [address] [email or web address] PCP - General Family Medicine 11/23/17 06/24/23 Cecilia Irizarry MD, MPH [address] [place] [address] [email or web address] PCP - General Family Medicine 06/25/23 documented as of this encounter Additional Source Comments The information contained in this document represents components of the legal health record. It is not the complete legal health record.[facility]
--- OUTSIDE RECORDS SUMMARY | 2025-03-25 16:44 | XMS_ITS | Encounter Summary ---
Author Organization [facility] Address 399 [facility] [address] [place] [address] Phone Care Team Providers Care Behavioral Sciences Department Chair Name Role Phone Cecilia Irizarry MD, MPH Primary Care Provider + Cecilia Irizarry MD, MPH Primary Care Provider + Encounter Details Date Type Department Care Team (Latest Contact Info) Description 12/05/2019 Transcribe Orders Virtual Department 30 [place] [address] Cynthia Rondon, SALES AND MARKETING PROFESSIONAL [address] [place] [address] Cough (Primary Dx); Shortness of breath Social [...] 9:54 AM EDT) Specimen Source NASOPHARYNGEAL SWAB (SALES AND MARKETING PROFESSIONAL) [facility] COVID Testing Status Sent to [facility] Micro Lab [facility] Other 12/06/2019 9:54 AM EDT 12/06/2019 10:20 AM EDT Cynthia Rondon SALES AND MARKETING PROFESSIONAL BODY FLUIDS AND STOOLS ORDERABL ES Final Result [facility] 30 [place] [address] documented in this encounter Visit Diagnoses Diagnosis Cough- Primary Shortness of breath documented in this encounter Additional Health Concerns Infection Onset Date Last Indicated Resolved Time CoV-Risk 12/05/2019 12/06/2019 12/19/2019 3:34 AM EDT CoV-Risk Comment:Per note documentation 2024 2024 9:22 PM EDT documented as of this encounter Care Teams Behavioral Sciences Department Chair Relationship Specialty Start Date End Date Cecilia Irizarry MD, MPH [address] [place] [address] [email or web address] PCP - General Family Medicine 11/23/17 06/24/23 Cecilia Irizarry MD, MPH [address] [place] [address] PCP - General Family Medicine 06/25/23 documented as of this encounter Additional Source Comments The information contained in this document represents components of the legal health record. It is not the complete legal health record.[facility]
--- OUTSIDE RECORDS SUMMARY | 2025-03-25 16:44 | XMS_ITS | Encounter Summary ---
Author Organization [facility] Address 399 [facility] [address] [place] [address] Phone Care Team Providers Care System Administration Advisor Name Role Phone Cecilia Irizarry MD, MPH Primary Care Provider + Cecilia Irizarry MD, MPH Primary Care Provider + Cecilia Irizarry MD, MPH Primary Care Provider + Encounter Details Date Type Department Care Team (Late st Contact Info) Description 11/15/2017 Ancillary Orders Virtual Department 30 [place] [address] Cecilia Irizarry MD, MPH [address] [place], [place] [phone] [email or web address] Chest pain, unspecified type Social History Tobacco [...] AM EDT) Max BP Systolic 210 mmHg [facility] Max BP Diastolic 80 mmHg [facility] Max HR 142 BPM [facility] Resting HR 88 BPM [facility] Resting BP Systolic 134 mmHg [facility] Resting BP Diastolic 60 mmHg [facility] Peak METS 6.5 METS [facility] Peak HR 139 BPM [facility] Anatomical Region Laterality Modality Heart Other [...] pain, unspecified type Chest pain, unspecified type documented in this encounter Additional Health Concerns Infection Onset Date Last Indicated Resolved Time CoV-Risk 12/05/2019 12/06/2019 12/19/2019 3:34 AM EDT CoV-Risk Comment:Per note documentation 2024 2024 9:22 PM EDT documented as of this encounter Care Teams System Administration Advisor Relationship Specialty Start Date End Date Cecilia Irizarry MD, MPH [address] [place] [address] [email or web address] PCP - General Family Medicine 04/23/17 11/22/17 Cecilia Irizarry MD, MPH [address] [place] [address] [email or web address] PCP - General Family Medicine 11/23/17 06/24/23 Cecilia Irizarry MD, MPH [address] [place] [address] [email or web address] PCP - General Family Medicine 06/25/23 documented as of this encounter Additional Source Comments The information contained in this document represents components of the legal health record. It is not the complete legal health record.[facility]
--- OUTSIDE RECORDS SUMMARY | 2025-03-25 16:44 | XMS_ITS | Encounter Summary ---
Author Organization [facility] Address [address] [facility] [address] [place] [address] Phone Care Team Providers Care Quality Manager Name Role Phone Cecilia Irizarry MD, [...] Expiration Date Visits Re quested Visits Authorized [id number] Closed 08/01/2017 10/30/2017 1 1 Encounter Details Date Type Department Care Team (Late st Contact Info) Description 08/01/2017 Ancillary Orders Virtual Department 30 [place] [address] Cecilia Irizarry MD, MPH [address] [place], [place] [phone] Screening for malignant neoplasm of respiratory organ [...] for malignant neoplasm of the respiratory organs documented in this encounter Additional Health Concerns Infection Onset Date Last Indicated Resolved Time CoV-Risk 12/05/2019 12/06/2019 12/19/2019 3:34 AM EDT CoV-Risk Comment:Per note documentation 2024 2024 9:22 PM EDT documented as of this encounter Care Teams Quality Manager Relationship Specialty Start Date End Date Cecilia Irizarry MD, MPH [address] [place] [address] [email or web address] PCP - General Family Medicine 04/23/17 11/22/17 Cecilia Irizarry MD, MPH [address] [place] [address] [email or web address] PCP - General Family Medicine 11/23/17 06/24/23 Cecilia Irizarry MD, MPH [address] [place] [address] [email or web address] PCP - General Family Medicine 06/25/23 documented as of this encounter Additional Source Comments The information contained in this document represents components of the legal health record. It is not the complete legal health record.[facility]
--- OUTSIDE RECORDS SUMMARY | 2025-03-25 16:44 | XMS_ITS | Encounter Summary ---
Author Organization [facility] Address 399 [facility] [address] [place] [address] Phone Care Team Providers Care Filler In Name Role Phone Cecilia Irizarry MD, MPH Primary Care Provider + Cecilia Irizarry MD, MPH Primary Care Provider + Encounter Details Date Type Department Care Team (Late st Contact Info) Description 12/03/2017 Ancillary Orders Virtual Department 30 [place] [address] Cecilia Irizarry MD, MPH 70 [place] [address] [email or web address] Social History Tobacco Use Types Packs/Day Years [...] documented as of this encounter Care Teams Filler In Relationship Specialty Start Date End Date Cecilia Irizarry MD, MPH 70 [place] [address] PCP - General Family Medicine 6/29/18 1/28/24 Cecilia Irizarry MD, MPH [address] [place] [address] [email or web address] PCP - General Family Medicine 06/25/23 documented as of this encounter Additional Source Comments The information contained in this document represents components of the legal health record. It is not the complete legal health record.[facility]
--- OUTSIDE RECORDS SUMMARY | 2025-03-25 16:44 | XMS_ITS | Encounter Summary ---
Author Organization [facility] Address 399 [facility] [address] [place] [address] Phone Care Team Providers Care Estimate Clerk Name Role Phone Cecilia Irizarry MD, MPH Primary Care Provider + Cecilia Irizarry MD, MPH Primary Care Provider + Encounter Details Date Type Department Care Team (Late st Contact Info) Description 09/08/2021 Procedure Pass [facility] Endoscopy Admitting Dept Virtual Department 30 [place] [address] Social History Tobacco Use Types Packs/Day Years [...] documented as of this encounter Care Teams Estimate Clerk Relationship Specialty Start Date End Date Cecilia Irizarry MD, MPH [address] [place] [address] PCP - General Family Medicine 11/23/17 06/24/23 Cecilia Irizarry MD, MPH [address] [place] [address] [email or web address] PCP - General Family Medicine 06/25/23 documented as of this encounter Additional Source Comments The information contained in this document represents components of the legal health record. It is not the complete legal health record.[facility]
--- OUTSIDE RECORDS SUMMARY | 2025-03-25 16:44 | XMS_ITS | Encounter Summary ---
Author Organization [facility] Address 399 [facility] [address] [place] [address] Phone Care Team Providers Care Artificial Foliage Arranger Name Role Phone Cecilia Irizarry MD, MPH Primary Care Provider + Cecilia Irizarry MD, MPH Primary Care Provider + Cecilia Irizarry MD, MPH Primary Care Provider + Encounter Details Date Type Department Care Team (Late st Contact Info) Description 08/01/2017 Procedure Pass [facility], Ct Scan - [address] [address] Social History Tobacco Use Types Packs/Day Years [...] documented as of this encounter Care Teams Artificial Foliage Arranger Relationship Specialty Start Date End Date Cecilia Irizarry MD, MPH [address] [place] [address] PCP - General Family Medicine 04/23/17 11/22/17 Cecilia Irizarry MD, MPH [address] [place] [address] [email or web address] PCP - General Family Medicine 11/23/17 06/24/23 Cecilia Irizarry MD, MPH [address] [place] [address] [email or web address] PCP - General Family Medicine 06/25/23 documented as of this encounter Additional Source Comments The information contained in this document represents components of the legal health record. It is not the complete legal health record.[facility]
--- OUTSIDE RECORDS SUMMARY | 2025-03-25 16:44 | XMS_ITS | Encounter Summary ---
Author Organization [facility] Address 399 [facility] [address] [place] [address] Phone Care Team Providers Care Vamp Wetter Name Role Phone Cecilia Irizarry MD, MPH Primary Care Provider + Cecilia Irizarry MD, MPH Primary Care Provider + Encounter Details Date Type Department Care Team (Late st Contact Info) Description 04/24/2022 Transcribe Orders [facility] PFT Lab 30 [place] [address] Lucius Murillo MD, MS [address] [address] [email or web address] Social History [...] documented as of this encounter Care Teams Vamp Wetter Relationship Specialty Start Date End Date Cecilia Irizarry MD, MPH [address] [place] [address] [email or web address] PCP - General Family Medicine 11/23/17 06/24/23 Cecilia Irizarry MD, MPH [address] [place] [address] [email or web address] PCP - General Family Medicine 06/25/23 documented as of this encounter Additional Source Comments The information contained in this document represents components of the legal health record. It is not the complete legal health record.[facility]
--- OUTSIDE RECORDS SUMMARY | 2025-03-25 16:44 | XMS_ITS | Clinical Summary ---
Author Organization [facility] Address [address] [address] Phone Care Team Providers Care Staff Writer Name Role Phone Cecilia Irizarry MD, MPH [...] tablet Take 50 mg by mouth daily. 1 Active amLODIPine (NORVASC) 10 MG tablet Take 10 mg by mouth daily. 1 Active LANTUS SOLOSTAR U-100 INSULIN 100 unit/mL (3 mL) InPn injection pen Inject 16 Units under the skin nightly at bedtime. 1 Active cyanocobalamin , vitamin B-12, 1000 MCG tablet Take 1,000 mcg by mouth daily. 1 Active BD RAYMUNDO 2ND GEN PEN NEEDLE 32 gauge x 5/32 Ndle USE TO INJECT FOUR TIMES DAILY 1 Active latanoprost (XALATAN) 0.005 % ophthalmic solution INSTILL 1 DROP IN BOTH EYES AT BEDTIME 2 Active FREESTYLE LITE Strp strips USE TO TEST BLOOD GLUCOSE THREE TIMES DAILY 2 Active DEXCOM G7 SENSOR Agustina USE DIRECTED CHANGE EVERY 10 DAYS 4 Active atorvastatin (LIPITOR) 40 MG tablet Take 40 mg by mouth nightly at bedtime. at bedtime. 4 Active dorzolamide-ti moloL (COSOPT) 22.3-6.8 mg/mL ophthalmic solution Place 1 drop into each eye 2 (two) times a day. 4 Active HUMALOG KWIKPEN INSULIN 100 unit/mL kwikpen Inject 6 Units under the skin 3 (three) times a day with meals. May take up to 8 units 3 times a day for BS > 200. 4 Active glucagon (BAQSIMI) 3 mg/actuation [place] Active TRESIBA FLEXTOUCH U-100 injection pen INJECT 16 UNITS UNDER THE SKIN EVERY NIGHT AT BEDTIME Active lisinopril (PRINIVIL,ZEST RIL) 40 MG tablet Take 1 tablet by mouth daily. Active TRELEGY ELLIPTA 200-62.5-25 mcg inhalerIndicat ions:Asthma-[place] PD overlap syndrome INHALE 1 PUFF BY MOUTH INTO THE LUNGS DAILY 180 each 3 5 Active losartan (COZAAR) 100 MG tablet Take 1 tablet by mouth every morning. 5 Active bisacodyl (DULCOLAX) 5 mg Tab tablet Take 1 tablet (5 mg total) by mouth as directed. Take 4 tablets per colon prep instructions 4 tablet 5 Active polyethylene glycol (GOLYTELY) 236-22.74-6.74 -5.86 gram solution Take 4,000 mL by mouth once for 1 dose. 1 mL 5 025 Discontin ued(Stop Taking at Discharge ) Active Problems Problem Noted Date Diagnosed Date [...] with bronchodilator, Lung Volumes, DLCO; Performing Location: [facility]; Future albuterol 90 mcg/actuation inhaler 2-4 puff [...] Overview (08/29/2023): Quit in 2010 after an 11-kcrq-kwwz history. Assessment & Plan (08/05/2024 2:06 PM EDT): Quit smoking in 2010 after an 34-mmcd-pbeu history. Will continue with annual lung cancer [...] Encounters Date Type Department Care Team Description 03/12/2025 9:49 AM EDT Anesthesia Event [facility] Endoscopy Admitting Dept Virtual Department [address] [place] [id number] Vu Rodriguez MD, MPH 03/12/2025 9:30 AM EDT - 03/12/2025 10:00 AM EDT Surgery [facility] Endoscopy Admitting Dept Virtual Department [address] [place] [phone] Marquez Dobbs MD COLONOSCOPY 03/12/2025 8:20 AM EDT - 03/12/2025 10:57 AM EDT Hospital Encounter [facility] Admitting Dept Virtual Department [address] [place] [id number] Marquez Dobbs MD Discharge Disposition: Home or Self Care 03/12/2025 Procedure Pass [facility] Endoscopy Admitting Dept Virtual Department [address] [place] [phone] 03/06/2025 Telephone [facility] [address] [place] [address] Marquez Dobbs MD Prep prescription needed for 03/1202/26/2025 11:15 AM EDT Pre-Admission Testing Pre Procedure Evaluation [address] [place] [phone] Marquez Dobbs MD 01/19/2025 Refill [facility] Pulmonary, Allergy and Critical Care Medicine [address] [place] [address] Lucius Murillo MD, MS Medication Refill 01/02/2025 11:12 AM EDT - 01/02/2025 11:59 PM EDT Hospital Encounter [facility] Laboratory [address] [place] [phone] Penny Serrano, HEIKE Discharge Disposition: Home or Self Care 01/02/2025 Transcribe Orders [facility] Laboratory [address] [place] [address] Penny Serrano, MATERIALS DEVELOPMENT ENGINEER Hyperkalemia (Primary Dx) from Last 3 Months [...] Former Cigarettes 2 40 1 971 - 2011 Smokeless Tobacco: Never Tobacco Cessation:Counseling Given: Not [...] Sign Reading Time Taken Comments Blood Pressure 132/63 03/12/2025 10:32 AM EDT Pulse 65 03/12/2025 10:32 AM EDT Temperature 36.1 C (97 F) 03/12/2025 10:17 AM EDT Respiratory Rate 23 03/12/2025 10:32 AM EDT Oxygen Saturation 94% 03/12/2025 10:32 AM EDT Inhaled Oxygen Concentration - - Weight 70.8 kg (156 lb) 02/26/2025 11:36 AM EDT Height 167.6 cm (5' 6 ) 02/26/2025 11:36 AM EDT Body Mass Index 25.18 02/26/2025 11:36 AM EDT Plan of Treatment Health Maintenance Due Date Last Done Comments DEPRESSION SCREENING 1965 HEPATITIS C SCREENING 1971 COLOGUARD 1998 FIT TEST 1998 FOBT 1998 SIGMOIDOSCOPY 1998 VIRTUAL COLONOSCOPY 1998 RSV VACCINE (1 - Risk 50-74 years 1-dose series) 2003 LIPID PANEL 06/24/2013 06/24/2008 ABDOMINAL AORTIC ANEURYSM [...] Adult Td,Tdap Booster 08/02/2027 08/01/2017, 008 COLONOSCOPY 03/12/2030 03/12/2025, 09/08/2021 COLORECTAL CANCER SCREENING 03/12/2030 ZOSTER VACCINES Completed 06/02/2019, 01/26, 09/16/2013 PNEUMOCOCCAL [...] Procedure Name Priority Date/Time Associated Diagnosis Comments MS COLONOSCOPY W/BIOPSY SINGLE/MULTIPLE 03/12/2025 9:47 AM EDT History of colonic polyps MS COLONOSCOPY FLX DX W/COLLJ SPEC WHEN PFRMD 03/12/2025 9:47 AM EDT History of colonic polyps ENDOSCOPY, COLON 03/12/2025 9:46 AM EDT BASIC METABOLIC PANEL Routine 01/02/2025 11:[address] CHEST LUNG CANCER SCREENING ANNUAL Routine 07/29/2024 11:27 AM EST Former smoker from Last 3 Months or Most Recently Relevant to Health Maintenance Results * ENDOSCOPY, COLON (03/12/2025 9:46 AM EDT) Narrative Transcriptions Marquez Dobbs MD - 03/12/2025 9:46 AM EDT [facility] Patient Name: Kedar Call MD:: MARQUEZ DOBBS MD, Procedure Date: 03/12/2025 9:46 AM Date of : 1955 Age: 70 Admit Type: Outpatient Gender: Male Room: [facility] Referring MD: Cecilia Irizarry MD Exam Type: Colonoscopy Indications: High risk colon cancer surveillance: Personalhistory of colonic polyps, Last colonoscopy: August 2021 Medications: Propofol per Anesthesia Procedure: Informed consent [...] monitored continuously. The Olympus adult variable colonoscope [id number] #2 was introduced through the anus and [...] immediate complications. Estimated blood loss:None. Findings: The digital rectal exam was normal. Pertinent negatives include normal prostate (size, shape, and consistency). Hemorrhoids were found on perianal exam. The entire examined colon appeared normal on direct and retroflexion views. The terminal ileum appeared normal. Retroflexion in the right colon was performed. Impression: - Hemorrhoids found on perianal exam. - The entire examined colon is normal on direct and retroflexion views. - The examined portion of the ileum was normal. - No specimens collected. Recommendation: - Repeat colonoscopy in 5 years for surveillance. MARQUEZ DOBBS MD 03/12/2025 10:14:35 AM This report has been signed electronically. Number of Addenda: 0 Note Initiated On: 03/12/2025 9:46 AM Procedure Code(s): --- Professional --- 30208, Colonoscopy, flexible; diagnostic, including collection of specimen(s) by brushing or washing, when performed (separateprocedure) --- Technical --- 31304, Colonoscopy, flexible; diagnostic, including collection of specimen(s) by brushing or washing, when performed (separateprocedure) Diagnosis Code(s): --- Professional --- Z86.010, Personal history of colonic polyps K64.9, Unspecified hemorrhoids --- Technical --- Z86.010, Personal history of colonic polyps K64.9, Unspecified hemorrhoids CPT copyright 2021 [employer]. All rights reserved. The codes documented in this report are preliminary and upon solar panel installer reviewmay be revised to meet current compliance requirements. Procedure Date: 03/12/2025 9:46:[address] [place] [phone] us Cecilia Irizarry MD, MPH GI PROCEDURE ORDERABLES Final Result * (ABNORMAL) Basic metabolic panel (01/02/2025 11:29 AM EDT) SODIUM 139 133 - 146 mmol/L [facility] CHLORIDE 101 96 - 108 mmol/L [facility] POTASSIUM 5.4(H) 3.3 - 5.1 mmol/L [facility] Comment:Specimen slightly he molyzed, result may be falsely elevated. CO2 21 21 - 35 mmol/L [facility] BUN 25(H) 6 - 19 mg/dL [facility] CREATININE 0.90 0.5 - 1.5 mg/dL [facility] GLUCOSE 136(H) 70 - 99 mg/dL [facility] CALCIUM 9.8 8.4 - 10.3 mg/dL [facility] EGFR 91 >59 mL/min/1.7 3m2 [facility] Comment:Estimated glomerular filtration rate calculated using the CKD-EPI refit equation. ANION GAP 22(H) 10 - 20 mmol/L [facility] Blood 01/02/2025 11:2 9 AM EDT 01/02/2025 11:32 AM EDT us Penny Serrano NP LAB BLOOD ORDERABLES Final Re sult [address] [address] * CT CHEST LUNG CANCER SCREENING ANNUAL [...] clinician's provided indication for this examination in Epic: Lung Cancer Screening - FORMER smoker, quit [...] lungs bilaterally. Mild centrilobular emphysematous changes. Chronic byvb-ee-gspiyqkx bronchial thickening bilaterally remains evident. There are [...] clinician's provided indication for this examination in [facility]:Lung Cancer Screening - FORMER smoker, quit in [...] the lungs bilaterally. Mild centrilobularemphysematous changes. Chronic bboj-rp-hinmsscm bronchial thickeningbilaterally remains evident. There are scattered [...] RECOMMENDATIONS: Continued annual screening low-dose chest CT. Lucius Murillo MD, MS IMG CT CHEST Final Re sult from Last 3 Months or Most Recently Relevant to Health Maintenance Insurance [employer] MEDEX SUPPLEMENT [facility] [employer] Address: [facility] [id number] [place] [address] MEDICARE PART A & B [employer] MEDEX SUPPLEMENT MEDICARE PART A & B [employer] MEDEX SUPPLEMENT MEDICARE PART A & B [employer] MEDEX SUPPLEMENT MEDICARE PART A & B [employer] MED[employer] SUPPLEMENT MEDICARE PART A & B [employer] MEDEX SUPPLEMENT MEDICARE PART A & B [employer] MEDEX SUPPLEMENT MEDICARE PART A & [place] [address] [place] [address] CROSS MEDEX SUPPLEMENT MEDICARE PART A & B BLUE [employer] MEDEX SUPPLEMENT [facility] [employer] Address: [facility] [id number] [place] [address] MEDICARE PART A & B Advance Directives For more information, please contact: [phone] (9AM - 5PM Deborah/[facility], Sunday-Sunday) * Full Code (Latest Code Status on File) Date Activated Date Inactivated Comments 2024 9:29 PM Question Answer Comments Code Status Confirmed With: Patient Care Teams Staff Writer Relationship Specialty Start Date End Date Cecilia Irizarry MD, MPH [address] [place] [phone] PCP - General Family Medicine 06/25/23 Additional Source Comments The information contained in this document represents components of the legal health record. It is not the complete legal health record.[facility]
--- OUTSIDE RECORDS SUMMARY | 2025-03-25 16:44 | XMS_ITS | Encounter Summary ---
Author Organization [facility] Address [address] [facility] [address] [place] [phone] Phone Care Team Providers Care Program Support Clerk Name Role Phone Cecilia Irizarry MD, MPH Primary Care Provider + Cecilia Irizarry MD, MPH Primary Care Provider + Encounter Details Date Type Department Care Team (Late st Contact Info) Description 12/31/2020 Procedure Pass [facility], Ct Scan - [address] [address] Social History Tobacco Use Types Packs/Day Years [...] documented as of this encounter Care Teams Program Support Clerk Relationship Specialty Start Date End Date Cecilia Irizarry MD, MPH [address] [place] [phone] PCP - General Family Medicine 11/23/17 06/24/23 Cecilia Irizarry MD, [place] [address] [email or web address] PCP - General Family Medicine 06/25/23 documented as of this encounter Additional Source Comments The information contained in this document represents components of the legal health record. It is not the complete legal health record.[facility]
== END 2025-03-25 13:08 | disposition home or self-care (01) ==
LOC: HO.US 13:07
PROVIDERS: PCP Family Medicine; Visit Provider Surgery Vascular Surgery
DX: I73.9 Peripheral vascular disease, unspecified (principal)
CPT/HCPCS: 93922; 93925

== ENCOUNTER → 2025-03-25 13:08 | Outpatient (BNV) | payer MEDICARE, SELFPAY | PROVIDERS: PCP Family Medicine; Visit Provider Radiology Diagnostic Radiology | DX: I73.9 Peripheral vascular disease, unspecified (principal) | CPT/HCPCS: 93922; 93925 ==

== ENCOUNTER 2025-04-21 11:00 | Outpatient (AMB) | payer MEDICARE, SELFPAY ==
--- NOTE | 2025-04-21 11:07 | MHC.OFFVIS ---
Vital Signs 04/21/25 11:08 Height 5 ft 4 in Weight 154 lb BMI 26.4 Intake Visit Reasons: 1 yr follow up Art, Abd & carotid US Intake Note: 1yr follow up s/p Art & Abd US 03/25/25 and carotid US 12/09/24. Hx of Left Angio 12/27/22. Hx of Right CEA 02/04/18 Flaker Tender Required: No Accompanied by: Self / Same As Patient Allergies Seasonal Allergy (Unknown, Uncoded 04/21/25 11:10) Sneezing HPI HPI 1 yr follow up Art, Abd & carotid US: Details: The patient is a 70 year old individual presenting for a follow-up evaluation regarding carotids, aorta, and lower extremities. The patient has a history of a carotid procedure in January 2018, right-sided vein work in December 2020, and left-sided peripheral artery stenting in 2022. The patient reports feeling well in general and is walking well without issues, stating the left leg is good. The patient is able to walk four to five blocks or more without limitation. The patient is on a baby aspirin and a cholesterol medication. He now presents for vascular follow-up with noninvasive test [facility] Medical History Elevated vitamin B12 level Hypoglycemia Type 2 diabetes mellitus with circulatory disorder, with long-term current use of insulin Carotid stenosis Diabetes Surgical History S/P angiogram of extremity (12/27/22) History of cardiac cath History of CEA (carotid endarterectomy) Family History Father No problems noted. Mother No problems noted. Daughter No problems noted. Son No problems noted. Social History Alcohol intake: former Year quit: 1998 Patient Tobacco Use Status: Former Tobacco user Tobacco use type: Cigarette Years Smoked: 35 +/- Review of Systems Const All systems reviewed & are unremarkable except as noted in HPI and below Reports no additional complaints ENT Reports Normal hearing present Card Denies chest pain, Denies chest pain at rest, Denies chest pain with activity and Denies pedal edema Resp Denies cough GI Denies abdominal pain Musc Denies abnormal gait, Denies muscle cramps and Denies radiating pain into limb Skin/Breast Denies skin ulcer and Denies wounds Neuro Reports Normal hearing present and Denies abnormal gait Psych Reports no additional complaints Physical Exam Vital Signs: BMI result Body Mass Index 26.4 Const General: cooperative, healthy appearing and comfortable Orientation/consciousness: oriented to person, oriented to place and oriented to time HEENT Head: Yes normal to inspection Neck Neck: Yes normal visual inspection Carotids: no bruits Chest Chest palpation & inspection: normal inspection of the chest Resp Effort & Inspection: normal respiratory effort and able to speak in complete sentences Auscultation: clear to auscultation bilaterally, no crackles, no rales, no rhonchi and no wheezes Cardio Other: Right side palpable dorsalis pedis pulse, left side PT signals Rate: regular rate Rhythm: regular rhythm Heart sounds: S1 normal heart sound present and S2 normal heart sound present Bruits: no carotid bruits GI Inspection: Yes normal to inspection Skin Wounds: no wounds Hair: normal Neuro General: oriented to person, oriented to place and oriented to time Cranial nerves: Yes CN's II-XII intact bilaterally and Yes Normal hearing present Cognition (Neuro): normal cognition Motor exam (neuro): 5/5 motor strength present throughout Extrem Other: venous exam: No significant superficial varicosities or spider telangiectasias, minimal edema General: No clubbing, No cyanosis and No edema Psych Appearance: grossly normal Mental Status: mental status grossly normal Speech and movement: Normal speech and movement present Assessment & Plan Assessment & Plan (1) PAD (peripheral artery disease): Comment: 12/27/2022 - left common iliac and external iliac stent Code(s): I73.9 - Peripheral vascular disease, unspecified Category: Medical Plan: In short patient has stable claudication. I did review the pathophysiology of peripheral vascular disease with the patient. In addition we did discuss routine conservative measures including a healthy diet and the importance of exercise and ambulation. We did discuss risk factor modification. The patient will continue to to follow-up with surveillance follow-up in approximately 1 year. Thank you for allowing us to participate in this patient's care. If there are any questions or concerns please do not hesitate to contact us. (2) Bilateral carotid artery stenosis: Comment: 02/04/2018- right carotid endarterectomy Code(s): I65.23 - Occlusion and stenosis of bilateral carotid arteries Category: Medical Plan: In short patient has asymptomatic carotid disease. We have reviewed signs and symptoms of a stroke. We also discussed risk factor modification inclusive a healthy diet low in cholesterol. The patient will follow up with us with surveillance ultrasound of the carotids 1 year. Should there be any changes or signs or symptoms of a stroke we will be happy to see them back sooner. Thank you for allowing us to participate in this patient's care. If there are any questions or concerns please do not hesitate to contact us. (3) Varicose veins of right lower extremity with inflammation: Comment: 01/21/2021 - right great saphenous vein Radiofrequency ablation Code(s): I83.11 - Varicose veins of right lower extremity with inflammation Category: Medical Plan: Stable Orders: Orders US abdominal aortic aneurysm 1 Year I73.9 - Peripheral vascular disease, unspecified US arterial duplex LE BI 1 Year I73.9 - Peripheral vascular disease, unspecified US carotid duplex BI 1 Year I65.23 - Occlusion and stenosis of bilateral carotid arteries Coding Level of Care Code Est Pt Level 4 (02750) Diagnoses PAD (peripheral artery disease) I73.9 Bilateral carotid artery stenosis I65.23 Varicose veins of right lower extremity with inflammation I83.11
[2025-04-21 11:08] VITALS: BMI 26.4
--- OUTSIDE RECORDS SUMMARY | 2025-04-21 14:27 | XMS_ITS | Encounter Summary ---
Author Organization [facility] Address [address] [facility] [address] [place] [phone] Phone Care Team Providers Care Nursing Information Systems Coordinator Name Role Phone Cecilia Irizarry MD, MPH Primary Care Provider + Encounter Details Date Type Department Care Team (Late st Contact Info) Description 03/12/2025 Procedure Pass [facility] Endoscopy Admitting Dept Virtual Department [address] [place] [address] Social History Tobacco Use Types Packs/Day Years [...] on filedocumented in this encounter Care Teams Nursing Information Systems Coordinator Relationship Specialty Start Date End Date Cecilia Irizarry MD, MPH [address] [place] [phone] [email or web address] PCP - General Family Medicine 06/25/23 documented as of this encounter Additional Source Comments The information contained in this document represents components of the legal health record. It is not the complete legal health record.[facility]
--- OUTSIDE RECORDS SUMMARY | 2025-04-21 14:27 | XMS_ITS | Encounter Summary ---
Author Organization [facility] Address [address] [facility] [address] [place] [address] Phone Care Team Providers Care Taker Off Hemp Fiber Name Role Phone Cecilia Irizarry MD, MPH Primary Care Provider + Cecilia Irizarry MD, MPH Primary Care Provider + Cecilia Irizarry MD, MPH Primary Care Provider + Encounter Details Date Type Department Care Team (Late st Contact Info) Description 11/15/2017 Ancillary Orders Virtual Department 30 [place] [address] Cecilia Irizarry MD, MPH [address] [place], [place] [phone] [email or web address] Chest pain, unspecified type Social History Tobacco [...] AM EDT) Max BP Systolic 210 mmHg [facility] Max BP Diastolic 80 mmHg [facility] Max HR 142 BPM [facility] Resting HR 88 BPM [facility] Resting BP Systolic 134 mmHg [facility] Resting BP Diastolic 60 mmHg [facility] Peak METS 6.5 METS [facility] Peak HR 139 BPM [facility] Anatomical Region Laterality Modality Heart Other [...] documented as of this encounter Care Teams Taker Off Hemp Fiber Relationship Specialty Start Date End Date Cecilia Irizarry MD, MPH [address] [place] [address] [email or web address] PCP - General Family Medicine 04/23/17 11/22/17 Cecilia Irizarry MD, MPH [address] [place] [address] [email or web address] PCP - General Family Medicine 11/23/17 06/24/23 Cecilia Irizarry MD, MPH [address] [place] [address] [email or web address] PCP - General Family Medicine 06/25/23 documented as of this encounter Additional Source Comments The information contained in this document represents components of the legal health record. It is not the complete legal health record.[facility]
--- OUTSIDE RECORDS SUMMARY | 2025-04-21 14:27 | XMS_ITS | Encounter Summary ---
Author Organization [facility] Address [address] [facility] [address] [place] [address] Phone Care Team Providers Care Lead Qa Analyst Name Role Phone Cecilia Irizarry MD, MPH Primary Care Provider + Cecilia Irizarry MD, MPH Primary Care Provider + Encounter Details Date Type Department Care Team (Late st Contact Info) Description 01/02/2022 Procedure Pass [facility], Ct Scan - [address] [address] Social History Tobacco Use Types Packs/Day Years [...] documented as of this encounter Care Teams Lead Qa Analyst Relationship Specialty Start Date End Date Cecilia Irizarry MD, MPH [address] [place] [address] PCP - General Family Medicine 11/23/17 06/24/23 Cecilia Irizarry MD, [place] [address] [email or web address] PCP - General Family Medicine 06/25/23 documented as of this encounter Additional Source Comments The information contained in this document represents components of the legal health record. It is not the complete legal health record.[facility]
--- OUTSIDE RECORDS SUMMARY | 2025-04-21 14:27 | XMS_ITS | Encounter Summary ---
Author Organization [facility] Address 399 [facility] [address] [place] [address] Phone Care Team Providers Care Power Generation Plant Operator Name Role Phone Cecilia Irizarry MD, MPH Primary Care Provider + Cecilia Irizarry MD, MPH Primary Care Provider + Cecilia Irizarry MD, MPH Primary Care Provider + Encounter Details Date Type Department Care Team (Late st Contact Info) Description 08/01/2017 Procedure Pass [facility], Ct Scan - [address] [address] Social History Tobacco Use Types Packs/Day Years [...] documented as of this encounter Care Teams Power Generation Plant Operator Relationship Specialty Start Date End Date Cecilia Irizarry MD, MPH [address] [place] [address] PCP - General Family Medicine 04/23/17 11/22/17 Cecilia Irizarry MD, MPH 70 [place] [address] [email or web address] PCP - General Family Medicine 11/23/17 06/24/23 Cecilia Irizarry MD, MPH 70 [place] [address] [email or web address] PCP - General Family Medicine 06/25/23 documented as of this encounter Additional Source Comments The information contained in this document represents components of the legal health record. It is not the complete legal health record.[facility]
--- OUTSIDE RECORDS SUMMARY | 2025-04-21 14:27 | XMS_ITS | Encounter Summary ---
Author Organization [facility] Address [address] [address] Phone Care Team Providers Care Commercial Production Editor Name Role Phone Cecilia Irizarry MD, MPH Primary Care Provider + Cecilia Irizarry MD, MPH Primary Care Provider + Encounter Details Date Type Department Care Team (Latest Contact Info) Description 12/05/2019 Transcribe Orders Virtual Department 30 [place] [address] Cynthia Rondon, HAND [facility]MOND BLANCHER [address] [place] [address] Cough (Primary Dx); Shortness of breath Social [...] 9:54 AM EDT) Specimen Source NASOPHARYNGEAL SWAB (HAND ALMOND BLANCHER) [facility] COVID Testing Status Sent to [facility] Micro Lab [facility] Other 12/06/2019 9:54 AM EDT 12/06/2019 10:20 AM EDT us Cynthia Rondon [facility] GENERAL ORDERABLES Final Re sult [facility] [address] [place] [address] documented in this encounter Visit Diagnoses Diagnosis Cough- Primary Shortness of breath documented in this encounter Additional Health Concerns Infection Onset Date Last Indicated Resolved Time CoV-Risk 12/05/2019 12/06/2019 12/19/2019 3:34 AM EDT CoV-Risk Comment:Per note documentation 2024 2024 9:22 PM EDT documented as of this encounter Care Teams Commercial Production Editor Relationship Specialty Start Date End Date Cecilia Irizarry MD, MPH [address] [place] [address] [email or web address] PCP - General Family Medicine 11/23/17 06/24/23 Cecilia Irizarry MD, MPH [address] [place] [address] [email or web address] PCP - General Family Medicine 06/25/23 documented as of this encounter Additional Source Comments The information contained in this document represents components of the legal health record. It is not the complete legal health record.[facility]
--- OUTSIDE RECORDS SUMMARY | 2025-04-21 14:27 | XMS_ITS | Encounter Summary ---
Author Organization [facility] Address [address] [address] Phone Care Team Providers Care Circus Train Supervisor Name Role Phone Cecilia Irizarry MD, MPH Primary Care Provider + Cecilia Irizarry MD, MPH Primary Care Provider + Reason for Referral * Consultation (Elective) - Closed Specialty Diagnoses / Procedures Referred By Contac t Referred To Contact Pulmonary Disease Cecilia Irizarry MD, MPH Phone: tel: fax: [email or web address] [address] [place] [address] Phone: tel: Referral ID Status Reason Start Date Expiration Date Visits Re quested Visits Authorized [id number] Closed 09/08/2020 09/08/2021 1 1 Encounter Details Date Type Department Care Team (Late st Contact Info) Description 09/08/2020 Transcribe Orders [facility] Pulmonary, Allergy and Critical Care Medicine 10 [place] [address] Cecilia Irizarry MD, MPH [address] [place], [place] [phone] [email or web address] Social History Tobacco Use Types Packs/Day Years [...] Associated Diagnoses Order Schedule Ambulatory referral to [facility] Pulmonology Outpatient Referral Routine Ordered: 09/08/2020 documented as of this encounter Visit Diagnoses Not on filedocumented in this encounter Additional Health Concerns Infection Onset Date Last Indicated Resolved Time CoV-Risk Comment:Per note documentation 2024 2024 9:22 PM EDT documented as of this encounter Care Teams Circus Train Supervisor Relationship Specialty Start Date End Date Cecilia Irizarry MD, MPH [address] [place] [address] [email or web address] PCP - General Family Medicine 11/23/17 06/24/23 Cecilia Irizarry MD, MPH [address] [place] [address] [email or web address] PCP - General Family Medicine 06/25/23 documented as of this encounter Additional Source Comments The information contained in this document represents components of the legal health record. It is not the complete legal health record.[facility]
--- OUTSIDE RECORDS SUMMARY | 2025-04-21 14:27 | XMS_ITS | Encounter Summary ---
Author Organization [facility] Address [address] [facility] [address] [place] [address] Phone Care Team Providers Care Budget Specialist Name Role Phone Cecilia Irizarry MD, MPH Primary Care Provider + Cecilia Irizarry MD, MPH Primary Care Provider + Encounter Details Date Type Department Care Team (Late st Contact Info) Description 06/18/2023 Transcribe Orders [facility] PFT Lab [address] [place] [address] Lucius Murillo MD, MS [address] [address] [email or web address] Social History Tobacco Use Types [...] documented as of this encounter Care Teams Budget Specialist Relationship Specialty Start Date End Date Cecilia Irizarry MD, MPH [address] [place] [address] [email or web address] PCP - General Family Medicine 11/23/17 06/24/23 Cecilia Irizarry MD, MPH [address] [place] [address] [email or web address] PCP - General Family Medicine 06/25/23 documented as of this encounter Additional Source Comments The information contained in this document represents components of the legal health record. It is not the complete legal health record.[facility]
--- OUTSIDE RECORDS SUMMARY | 2025-04-21 14:27 | XMS_ITS | Encounter Summary ---
Author Organization [facility] Address 399 [facility] [address] [place] [address] Phone Care Team Providers Care Radio Disc Jockey Name Role Phone Cecilia Irizarry MD, MPH Primary Care Provider + Cecilia Irizarry MD, MPH Primary Care Provider + Encounter Details Date Type Department Care Team (Late st Contact Info) Description 05/04/2022 Procedure Pass [facility], Ct Scan - [address] [address] Social History Tobacco Use Types Packs/Day Years [...] documented as of this encounter Care Teams Radio Disc Jockey Relationship Specialty Start Date End Date Cecilia Irizarry MD, MPH [address] [place] [address] PCP - General Family Medicine 11/23/17 06/24/23 Cecilia Irizarry MD, [place] [address] [email or web address] PCP - General Family Medicine 06/25/23 documented as of this encounter Additional Source Comments The information contained in this document represents components of the legal health record. It is not the complete legal health record.[facility]
--- OUTSIDE RECORDS SUMMARY | 2025-04-21 14:27 | XMS_ITS | Encounter Summary ---
Author Organization [facility] Address [address] [address] Phone Care Team Providers Care Metal Numerical Control Programmer Name Role Phone Cecilia Irizarry MD, MPH Primary Care Provider + Cecilia Irizarry MD, MPH Primary Care Provider + Encounter Details Date Type Department Care Team (Latest Contact Info) Description 10/11/2022 Transcribe Orders Virtual Department 30 [place] [address] Cecilia Irizarry MD, MPH [address] [place] [address] [email or web address] Peripheral vascular disease, unspecified (Primary Dx) Social [...] documented as of this encounter Care Teams Metal Numerical Control Programmer Relationship Specialty Start Date End Date Cecilia Irizarry MD, MPH [address] [place] [address] [email or web address] PCP - General Family Medicine 11/23/17 06/24/23 Cecilia Irizarry MD, MPH [address] [place] [address] [email or web address] PCP - General Family Medicine 06/25/23 documented as of this encounter Additional Source Comments The information contained in this document represents components of the legal health record. It is not the complete legal health record.[facility]
--- OUTSIDE RECORDS SUMMARY | 2025-04-21 14:27 | XMS_ITS | Encounter Summary ---
Author Organization [facility] Address 399 [facility] [address] [place] [address] Phone Care Team Providers Care Trim Technician Name Role Phone Cecilia Irizarry MD, MPH Primary Care Provider + Cecilia Irizarry MD, MPH Primary Care Provider + Encounter Details Date Type Department Care Team (Late st Contact Info) Description 04/24/2022 Transcribe Orders [facility] PFT Lab 30 [place] [address] Lucius Murillo MD, MS [address] [address] [email or web address] Social History Tobacco Use Types Packs/Day Years [...] documented as of this encounter Care Teams Trim Technician Relationship Specialty Start Date End Date Cecilia Irizarry MD, MPH 70 [place] [address] [email or web address] PCP - General Family Medicine 11/23/17 06/24/23 Cecilia Irizarry MD, MPH [address] [place] [address] [email or web address] PCP - General Family Medicine 06/25/23 documented as of this encounter Additional Source Comments The information contained in this document represents components of the legal health record. It is not the complete legal health record.[facility]
--- OUTSIDE RECORDS SUMMARY | 2025-04-21 14:27 | XMS_ITS | Encounter Summary ---
Author Organization [facility] Address 399 [facility] [address] [place] [address] Phone Care Team Providers Care Mail Sorting Supervisor Name Role Phone Cecilia Irizarry MD, [...] Expiration Date Visits Re quested Visits Authorized [id number] Closed 08/01/2017 10/30/2017 1 1 Encounter Details Date Type Department Care Team (Late st Contact Info) Description 08/01/2017 Ancillary Orders Virtual Department 30 [place] [address] Cecilia Irizarry MD, MPH [address] [place], [place] [phone] Screening for malignant neoplasm of respiratory organ [...] documented as of this encounter Care Teams Mail Sorting Supervisor Relationship Specialty Start Date End Date Cecilia Irizarry MD, MPH [address] [place] [address] [email or web address] PCP - General Family Medicine 04/23/17 11/22/17 Cecilia Irizarry MD, MPH [address] [place] [address] [email or web address] PCP - General Family Medicine 11/23/17 06/24/23 Cecilia Irizarry MD, MPH [address] [place] [address] [email or web address] PCP - General Family Medicine 06/25/23 documented as of this encounter Additional Source Comments The information contained in this document represents components of the legal health record. It is not the complete legal health record.[facility]
--- OUTSIDE RECORDS SUMMARY | 2025-04-21 14:27 | XMS_ITS | Encounter Summary ---
Author Organization [facility] Address 399 [facility] [address] [place] [address] Phone Care Team Providers Care Motel Food Service Supervisor Name Role Phone Cecilia Irizarry MD, MPH Primary Care Provider + Cecilia Irizarry MD, MPH Primary Care Provider + Encounter Details Date Type Department Care Team (Late st Contact Info) Description 12/03/2017 Ancillary Orders Virtual Department 30 [place] [address] Cecilia Irizarry MD, MPH [address] [place] [address] Social History Tobacco Use Types Packs/Day Years [...] documented as of this encounter Care Teams Motel Food Service Supervisor Relationship Specialty Start Date End Date Cecilia Irizarry MD, MPH [address] [place] [address] PCP - General Family Medicine 6/29/18 1/28/24 Cecilia Irizarry MD, MPH [address] [place] [address] [email or web address] PCP - General Family Medicine 06/25/23 documented as of this encounter Additional Source Comments The information contained in this document represents components of the legal health record. It is not the complete legal health record.[facility]
--- OUTSIDE RECORDS SUMMARY | 2025-04-21 14:27 | XMS_ITS | Encounter Summary ---
Author Organization [facility] Address 399 [facility] [address] [place] [address] Phone Care Team Providers Care Business Database Analyst Name Role Phone Cecilia Irizarry MD, MPH Primary Care Provider + Cecilia Irizarry MD, MPH Primary Care Provider + Encounter Details Date Type Department Care Team (Late st Contact Info) Description 10/22/2020 Procedure Pass [facility], Ct Scan - [address] [address] Social History Tobacco Use Types Packs/Day Years [...] documented as of this encounter Care Teams Business Database Analyst Relationship Specialty Start Date End Date Cecilia Irizarry MD, MPH [address] [place] [address] PCP - General Family Medicine 11/23/17 06/24/23 Cecilia [place]rizarry [place], [place] [address] [email or web address] PCP - General Family Medicine 06/25/23 documented as of this encounter Additional Source Comments The information contained in this document represents components of the legal health record. It is not the complete legal health record.[facility]
--- OUTSIDE RECORDS SUMMARY | 2025-04-21 14:27 | XMS_ITS | Encounter Summary ---
Author Organization [facility] Address 399 [facility] [address] [place] [address] Phone Care Team Providers Care Access Analyst Name Role Phone Cecilia Irizarry MD, MPH Primary Care Provider + Encounter Details Date Type Department Care Team (Late st Contact Info) Description 08/29/2023 Procedure Pass [facility], Ct Scan - [facility] 30 [place] [address] Social History Tobacco Use Types Packs/Day Years [...] documented as of this encounter Care Teams Access Analyst Relationship Specialty Start Date End Date Cecilia Irizarry MD, MPH 70 [place] [address] [email or web address] PCP - General Family Medicine 06/25/23 documented as of this encounter Additional Source Comments The information contained in this document represents components of the legal health record. It is not the complete legal health record.[facility]
--- OUTSIDE RECORDS SUMMARY | 2025-04-21 14:27 | XMS_ITS | Encounter Summary ---
Author Organization [facility] Address [address] [facility] [address] [place] [address] Phone Care Team Providers Care Geothermal Plant Manager Name Role Phone Cecilia Irizarry MD, MPH Primary Care Provider + Cecilia Irizarry MD, MPH Primary Care Provider + Encounter Details Date Type Department Care Team (Late st Contact Info) Description 10/06/2020 Transcribe Orders [facility] PFT Lab 30 [place] [address] Cecilia Irizarry MD, MPH [address] [place] [address] Social History Tobacco Use Types Packs/Day Years [...] documented as of this encounter Care Teams Geothermal Plant Manager Relationship Specialty Start Date End Date Cecilia Irizarry MD, MPH [address] [place], [place] [phone] [email or web address] PCP - General Family Medicine 11/23/17 06/24/23 Cecilia Irizarry MD, MPH [address] [place] [address] [email or web address] PCP - General Family Medicine 06/25/23 documented as of this encounter Additional Source Comments The information contained in this document represents components of the legal health record. It is not the complete legal health record.[facility]
--- OUTSIDE RECORDS SUMMARY | 2025-04-21 14:27 | XMS_ITS | Clinical Summary ---
Author Organization Located [facility] Address [address] [address] Phone Care Team Providers Care Vamp Presser Name Role Phone Cecilia Irizarry MD, MPH [...] the skin nightly at bedtime. 1 Active cyanocobalamin, vitamin B-12, 1000 MCG tablet [...] nightly at bedtime. at bedtime. 4 Active dorzolamide-vincent oloL (COSOPT) 22.3-6.8 mg/mL ophthalmic solution Place 1 drop into each eye 2 (two) times a day. 4 Active HUMALOG KWIKPEN INSULIN 100 unit/mL kwikpen Inject 6 Units under the skin 3 (three) times a day with meals. May take up to 8 units 3 times a day for BS > 200. 4 Active glucagon (BAQSIMI) 3 mg/actuation [employer] Active TRESIBA FLEXTOUCH U-100 injection pen INJECT [...] colon prep instructions 4 tablet 5 Active Active Problems Problem Noted Date Diagnosed [...] with bronchodilator, Lung Volumes, DLCO; Performing Location: [facility]; Future albuterol 90 mcg/actuation inhaler 2-4 puff [...] Overview (08/29/2023): Quit in 2010 after an 65-iwkx-gwqd history. Assessment & Plan (08/05/2024 2:06 PM EDT): Quit smoking in 2010 after an 03-kpjb-veqo history. Will continue with annual lung cancer [...] Event [facility] Admitting Dept Virtual Department [address] [place] [address] Vu Rodriguez MD, MPH 03/12/2025 9:30 AM EDT - 03/12/2025 10:00 AM EDT Surgery [facility] Admitting [facility] Virtual Department [address] [place] [address] Marquez Dobbs MD COLONOSCOPY 03/12/2025 8:20 AM EDT - 03/12/2025 10:57 AM EDT Hospital Encounter [facility] Virtual Department [address] [place] [address] Marquez Dobbs MD Discharge Disposition: Home or Self Care 03/12/2025 Procedure Pass [facility] Admitting [facility] Virtual Department [address] [place] [place] [address] 03/06/2025 Telephone [facility] [address] [place] [address] Marquez Dobbs MD Prep prescription needed for 03/1202/26/2025 11:15 AM EDT Pre-Admission Testing Pre Procedure Evaluation [address] [place] [address] Marquez Dobbs MD 01/19/2025 Refill [facility] All[facility] Critical [facility] [address] [place] [address] Lucius Murillo MD, MS Medication Refill from Last 3 Months Immunizations Immunization Administration [...] Procedure Name Priority Date/Time Associated Diagnosis Comments WA COLONOSCOPY W/BIOPSY SINGLE/MULTIPLE 03/12/2025 9:47 AM EDT History of colonic polyps WA COLONOSCOPY FLX DX W/COLLJ SPEC WHEN PFRMD 03/12/2025 9:47 AM EDT History of colonic polyps ENDOSCOPY, COLON 03/12/2025 9:46 AM EDT BASIC METABOLIC PANEL (BMP) Routine 01/02/2025 11:[address] CHEST LUNG CANCER SCREENING ANNUAL Routine 07/29/2024 11:27 AM EST Former smoker from Last 3 Months or Most Recently Relevant to Health Maintenance Results * ENDOSCOPY, COLON (03/12/2025 9:46 AM EDT) Narrative Transcriptions Marquez Dobbs MD - 03/12/2025 9:46 AM EDT [facility] Patient Name: Kedar Mccord Attending MD:: MARQUEZ DOBBS MD, Procedure Date: 03/12/2025 9:46 AM Date of : 1955 Age: 70 Admit Type: Outpatient Gender: Male Room: [place] [address] Referring MD: Cecilia Irizarry MD Exam Type: [...] monitored continuously. The Olympus adult variable colonoscope [id number] #2 was introduced through the anus and [...] 9:46 AM Procedure Code(s): --- Professional --- 50543, Colonoscopy, flexible; diagnostic, including collection of specimen(s) by brushing or washing, when performed (separateprocedure) --- Technical --- 75097, Colonoscopy, flexible; diagnostic, including collection of specimen(s) by brushing or washing, when performed (separateprocedure) Diagnosis Code(s): --- Professional --- Z86.010, Personal history of colonic polyps K64.9, Unspecified hemorrhoids --- Technical --- Z86.010, Personal history of colonic polyps K64.9, Unspecified hemorrhoids CPT copyright 2021 [employer]. All rights reserved. The codes documented in this report are preliminary and upon blacktop paver operator reviewmay be revised to meet current compliance requirements. Procedure Date: 03/12/2025 9:46:[address] [place] [address] [place] Cecilia Irizarry MD, MPH GI PROCEDURE ORDERABLES Final Result * (ABNORMAL) Basic metabolic panel (01/02/2025 11:29 AM EDT) SODIUM 139 133 - 146 mmol/L [facility] CHLORIDE 101 96 - 108 mmol/L [facility] POTASSIUM 5.4(H) 3.3 - 5.1 mmol/L [facility] Comment:Specimen slightly he molyzed, result may be falsely elevated. CO2 21 21 - 35 mmol/L [facility] BUN 25(H) 6 - 19 mg/dL [facility] CREATININE 0.90 0.5 - 1.5 mg/dL [facility] GLUCOSE 136(H) 70 - 99 mg/dL [facility] CALCIUM 9.8 8.4 - 10.3 mg/dL [facility] EGFR 91 >59 mL/min/1.7 3m2 [facility] Comment:Estimated glomerular filtration rate calculated using the CKD-EPI refit equation. ANION GAP 22(H) 10 - 20 mmol/L [facility] Blood 01/02/2025 11:2 9 AM EDT 01/02/2025 11:32 AM EDT us Penny Serrano NP LAB BLOOD BKR ORDERABLES Bisi l Result [address] [address] * CT CHEST LUNG CANCER SCREENING ANNUAL [...] clinician's provided indication for this examination in [facility]: Lung Cancer Screening - FORMER smoker, [...] lungs bilaterally. Mild centrilobular emphysematous changes. Chronic jovy-bq-efleleyz bronchial thickening bilaterally remains evident. There are [...] clinician's provided indication for this examination in [facility]:Lung Cancer Screening - FORMER smoker, quit [...] the lungs bilaterally. Mild centrilobularemphysematous changes. Chronic qcif-vy-tpdxxwcu bronchial thickeningbilaterally remains evident. There are scattered [...] Most Recently Relevant to Health Maintenance Insurance [employer] MEDEX SUPPLEMENT MEDICARE PART A & B [employer] MEDEX SUPPLEMENT MEDICARE PART A & B [employer] MEDEX SUPPLEMENT MEDICARE PART A & B [employer] MEDEX SUPPLEMENT MEDICARE PART A & [place] [address] [place] [address] [employer] MEDEX SUPPLEMENT MEDICARE PART A & B [employer] MEDEX SUPPLEMENT MEDICARE PART A & B Member Subscriber Plan / Payer (Ef fective 2017-) Name:Frankfarhat Kedar Member ID:[id number] Relation to Subscriber:Self Name:Kedar Mccord Subscriber ID:[id number] Payer ID:[id number] Group ID:Not on file Type:Medicare Address: [facility] [address] [employer] MEDEX SUPPLEMENT MEDICARE PART A & B [employer] MEDEX SUPPLEMENT MEDICARE PART A & B [employer] SUPPLEMENT MEDICARE PART A & B Advance Directives For more information, please contact: [phone] (9AM - 5PM [facility], Sunday-Sunday) * Full Code (Latest Code Status on File) Date Activated Date Inactivated Comments 2024 9:29 PM Question Answer Comments Code Status Confirmed With: Patient Care Teams Vamp Presser Relationship Specialty Start Date End Date Cecilia Irizarry MD, MPH [address] [place] [address] [email or web address] PCP - General Family Medicine 06/25/23 Additional Source Comments The information contained in this document represents components of the legal health record. It is not the complete legal health record.[facility]
--- OUTSIDE RECORDS SUMMARY | 2025-04-21 14:27 | XMS_ITS | Encounter Summary ---
Author Organization [facility] Address [address] [facility] [address] [place] [address] Phone Care Team Providers Care Public Transit Trolley Driver Name Role Phone Cecilia Irizarry MD, MPH Primary Care Provider + Cecilia Irizarry MD, MPH Primary Care Provider + Cecilia Irizarry MD, MPH Primary Care Provider + Encounter Details Date Type Department Care Team (Late st Contact Info) Description 04/17/2017 Ancillary Orders Virtual Department [address] [place] [address] Cecilia Irizarry MD, MPH [address] [place] [address] [email or web address] Retinal hemorrhage, unspecified laterality Social History Tobacco [...] documented as of this encounter Care Teams Public Transit Trolley Driver Relationship Specialty Start Date End Date Cecilia Irizarry MD, MPH [address] [place] [address] [email or web address] PCP - General Family Medicine 04/23/17 11/22/17 Cecilia Irizarry MD, MPH [address] [place] [address] [email or web address] PCP - General Family Medicine 11/23/17 06/24/23 Cecilia Irizarry MD, MPH [address] [place] [address] [email or web address] PCP - General Family Medicine 06/25/23 documented as of this encounter Additional Source Comments The information contained in this document represents components of the legal health record. It is not the complete legal health record.[facility]
--- OUTSIDE RECORDS SUMMARY | 2025-04-21 14:27 | XMS_ITS | Encounter Summary ---
Author Organization [facility] Address [address] [facility] [address] [place] [address] Phone Care Team Providers Care Shop Girl Name Role Phone Cecilia Irizarry MD, MPH Primary Care Provider + Cecilia Irizarry MD, MPH Primary Care Provider + Encounter Details Date Type Department Care Team (Late st Contact Info) Description 12/03/2017 Ancillary Orders Virtual Department [address] [place] [address] Cecilia Irizarry MD, MPH [address] [place] [address] [email or web address] Social History Tobacco Use Types Packs/Day Years [...] documented as of this encounter Care Teams Shop Girl Relationship Specialty Start Date End Date Cecilia Irizarry MD, MPH [address] [place] [address] PCP - General Family Medicine 6/29/18 1/28/24 Cecilia Irizarry MD, MPH [address] [place] [address] [email or web address] PCP - General Family Medicine 06/25/23 documented as of this encounter Additional Source Comments The information contained in this document represents components of the legal health record. It is not the complete legal health record.[facility]
--- OUTSIDE RECORDS SUMMARY | 2025-04-21 14:27 | XMS_ITS | Encounter Summary ---
Author Organization [facility] Address [address] [facility] [address] [place] [address] Phone Care Team Providers Care Coater Operator Insulation Board Name Role Phone Cecilia Irizarry MD, MPH Primary Care Provider + Cecilia Irizarry MD, MPH Primary Care Provider + Encounter Details Date Type Department Care Team (Late st Contact Info) Description 09/08/2021 Procedure Pass [facility] Endoscopy Admitting Dept Virtual Department [address] [place] [address] Social History Tobacco Use Types Packs/Day Years [...] documented as of this encounter Care Teams Coater Operator Insulation Board Relationship Specialty Start Date End Date Cecilia Irizarry MD, MPH [address] [place] [address] PCP - General Family Medicine 11/23/17 06/24/23 Cecilia Irizarry MD, MPH [address] [place] [address] [email or web address] PCP - General Family Medicine 06/25/23 documented as of this encounter Additional Source Comments The information contained in this document represents components of the legal health record. It is not the complete legal health record.[facility]
--- OUTSIDE RECORDS SUMMARY | 2025-04-21 14:27 | XMS_ITS | Encounter Summary ---
Author Organization [facility] Address [address] [facility] [address] [place] [address] Phone Care Team Providers Care Mobile Disc Jockey Name Role Phone Cecilia Irizarry MD, MPH Primary Care Provider + Cecilia Irizarry MD, MPH Primary Care Provider + Encounter Details Date Type Department Care Team (Late st Contact Info) Description 12/31/2020 Procedure Pass [facility], Ct Scan - [address] [address] Social History Tobacco Use Types Packs/Day Years [...] documented as of this encounter Care Teams Mobile Disc Jockey Relationship Specialty Start Date End Date Cecilia Irizarry MD, MPH [address] [place] [address] PCP - General Family Medicine 11/23/17 06/24/23 Cecilia Irizarry MD, [place] [address] [email or web address] PCP - General Family Medicine 06/25/23 documented as of this encounter Additional Source Comments The information contained in this document represents components of the legal health record. It is not the complete legal health record.[facility]
== END 2025-04-21 11:34 | disposition home or self-care (01) ==
LOC: HO.HVS 11:00
PROVIDERS: PCP Family Medicine; Visit Provider Surgery Vascular Surgery
DX: I73.9 Peripheral vascular disease, unspecified (principal); I65.23 Occlusion and stenosis of bilateral carotid arteries; I83.11 Varicose veins of right lower extremity with inflammation
CPT/HCPCS: 99214

== ENCOUNTER → 2025-04-21 11:00 | Outpatient (BNVA) | payer MEDICARE, SELFPAY | PROVIDERS: PCP Family Medicine; Visit Provider Surgery Vascular Surgery | DX: I73.9 Peripheral vascular disease, unspecified (principal); I65.23 Occlusion and stenosis of bilateral carotid arteries; I83.11 Varicose veins of right lower extremity with inflammation | CPT/HCPCS: 99212 ==